=== PATIENT | female | born 1980 | race Hispanic/Latino ===

== ENCOUNTER 2017-12-20 05:00 | Observation (INO) | payer OTHER ==
[2017-12-20 05:42] LABS: Absolute Lymphocytes (CBC) 3.6 K/uL (0.7-4.9); Absolute Monocytes 0.9 K/uL (0.1-1.3); Absolute Neutrophil 6.9 K/uL (1.8-8.0); Basophils % 0.8 % (0-1.3); Eosinophils % 2.4 % (0-4.4); Hematocrit 36.3 % (36.0-45.0); Lymphocytes % 30.4 % (15.3-44.8); MCH 28.8 pg (27.0-35.0); MCV 87.5 fL (80-100); MPV 9.2 fL (7.6-11.3); Monocytes % 7.4 % (3.3-12.3); RBC Red Blood Cell Count 4.15 M/uL (3.86-4.86)
[2017-12-20 05:45] LABS: Protime INR 0.91
[2017-12-20] MEDS ORDERED: ONDANSETRON 4 MG/2 ML VIAL ONE ×3 (05:52→16:05)
[2017-12-20] MEDS ORDERED: NA CHLORIDE 0.9% 1,000 ML ONE (05:52)
[2017-12-20] MEDS ORDERED: MEPERIDINE HCL 50 MG/ML AMP ONE (05:52)
[2017-12-20 06:03] LABS: Albumin 3.9 g/dL (3.4-5.0); Bilirubin Direct 0.1 mg/dL (0-0.2); Bilirubin Total 0.4 mg/dL (0.2-1.0); CKMB Creatine Kinase MB 1.7 ng/mL (0.3-3.6); Magnesium 1.9 mg/dL (1.8-2.4); Potassium 3.4 mmol/L (3.5-5.1)
[2017-12-20] MEDS ORDERED: POTASSIUM CL SA 10 MEQ TAB PO ONE (06:33)
[2017-12-20] MEDS ORDERED: MORPHINE 4 MG/ML SYR ONE ×2 (06:52→08:08)
--- NOTE | 2017-12-20 07:23 | ER ---
Nurse's Notes [facility] Name: Venessa Almazan Age: 37 yrs Sex: Female : 1980 Arrival Date: 12/20/2017 Time: 05:00 Bed 6 Private MD: Diagnosis: Cholecystitis;Cholelithiasis;Abdominal tenderness Presentation: 12/20 05:15 Presenting complaint: Patient states: chest/epigastric pain since 9 pm last night, tl2 getting worse. Sharp, constant pain. Transition of care: patient was not received from another setting of care. Onset of symptoms was December 19, 2017 at 21:00. Risk Assessment: Do you want to hurt yourself or someone else? Patient reports no desire to harm self or others. Initial Sepsis Screen: Does the patient meet any 2 criteria? No. Patient's initial sepsis screen is negative. Does the patient have a suspected source of infection? No. Patient's initial sepsis screen is negative. Care prior to arrival: None. 05:15 Method Of Arrival: Ambulatory tl2 05:15 Acuity: ADAN 3 tl2 Triage Assessment: 05:17 General: Appears in no apparent distress. uncomfortable, Behavior is cooperative, tl2 appropriate for age, anxious, crying. Pain: Complains of pain in epigastric area Pain radiates to left upper quadrant Pain currently is 10 out of 10 on a pain scale. Quality of pain is described as sharp, Is continuous. Neuro: Level of Consciousness is awake, alert, obeys commands, Oriented to person, place, time, situation. Respiratory: Airway is patent Respiratory effort is even, unlabored, Respiratory pattern is regular, symmetrical. GI: Abdomen is non-distended, Reports upper abdominal pain. : No signs and/or symptoms were reported regarding the genitourinary system. Derm: Skin is pink, warm \T\ dry. 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 - Social history:: Smoking status: Patient/guardian denies using tobacco. - Ebola Screening: : No symptoms or risks identified at this time. Screenin:21 Abuse screen: Denies threats or abuse. Nutritional screening: No deficits noted. tl2 Tuberculosis screening: No symptoms or risk factors identified. Fall Risk None identified. Assessment: 05:21 General: see triage assessment. tl2 06:33 Reassessment: Patient and/or family updated on plan of care and expected duration. Pain ea level reassessed. Pain: Complains of pain in epigastric area Pain radiates to posterior aspect of right lateral abdomen and anterior aspect of right lateral abdomen Pain currently is 10 out of 10 on a pain scale. Pain began suddenly. Cardiovascular: Heart tones S1 S2 present Rhythm is sinus rhythm. Respiratory: Airway is patent Respiratory effort is even, unlabored, Respiratory pattern is regular, symmetrical. 06:51 Reassessment: Patient and/or family updated on plan of care and expected duration. Pain ea level reassessed. Pt complaining of pain, provider notified, order obtained, medication administered. Pt tolerated well. 07:10 Reassessment: Patient states feeling better. General: Appears comfortable, Behavior is aa5 calm, cooperative. Pain: Complains of pain in epigastric area and right upper quadrant Pain radiates to right mid-back Pain currently is 0 out of 10 on a pain scale. Quality of pain is described as sharp, Pain began last night. Neuro: Level of Consciousness is awake, alert, obeys commands, Oriented to person, place, time, situation. Cardiovascular: Heart tones S1 S2 present Rhythm is regular. Respiratory: Airway is patent Respiratory effort is even, unlabored, Respiratory pattern is regular, symmetrical, Breath sounds are clear bilaterally. GI: Abdomen is round non-distended, Bowel sounds present X 4 quads. Abd is soft X 4 quads Abdomen is tender to palpation in right upper quadrant Patient currently denies diarrhea, nausea, vomiting. : No signs and/or symptoms were reported regarding the genitourinary system. : No signs and/or symptoms were reported regarding the genitourinary system. EENT: No signs and/or symptoms were reported regarding the EENT system. Derm: Skin is pink, warm \T\ dry. Musculoskeletal: Range of motion: intact in all extremities. 08:01 Reassessment: Patient and/or family updated on plan of care and expected duration. Pain jl7 level reassessed. pt reports increased pain, provider notified see [facility] for orders. 09:00 Reassessment: Patient and/or family updated on plan of care and expected duration. Pain aa5 level reassessed. Patient is alert, oriented x 3, equal unlabored respirations, skin warm/dry/pink. Patient denies pain at this time. Awaiting on room assignment . Vital Signs: 05:17 BP 156 / 93; Pulse 104; Resp 22; Temp 98.7; Pulse Ox 100% on R/A; Weight 79.38 kg; tl2 Height 5 ft. 0 in. (152.40 cm); Pain 10/10; 07:41 BP 146 / 92; Pulse 71; Resp 14 S; Pulse Ox 97% on R/A; Pain 0/10; jl7 09:00 BP 120 / 92; Pulse 80; Resp 16 S; Temp 98.0(TE); Pulse Ox 98% on R/A; Pain 0/10; aa5 05:17 Body Mass Index 34.18 (79.38 kg, 152.40 cm) tl2 ED Course: 05:00 Patient arrived in ED. ds1 05:16 Triage completed. tl2 05:17 Kevin Stevens MD is Attending Physician. pkl 05:17 Arm band placed on right wrist. tl2 05:21 Patient has correct armband on for positive identification. Placed in gown. Bed in low tl2 position. Call light in reach. Side rails up X2. Adult w/ patient. switcher on. Pulse ox on. NIBP on. 05:21 Inserted saline lock: 20 gauge in right antecubital area, using aseptic technique. tl2 Blood collected. Patient maintains SpO2 saturation greater than 95% on room air. 05:35 X-ray completed. Portable x-ray completed in exam room. Patient tolerated procedure kp1 well. 05:47 Ann Valverde, RN is Primary Nurse. ea 06:16 XRAY Chest (1 view) In Process Unspecified. EDMS 07:21 Jaxson Elizabeth MD is Referral Physician. pkl 07:23 Ultrasound completed. Patient tolerated well. aa4 07:25 US Abdomen Limited In Process Unspecified. EDMS 07:39 Attending Physician role handed off by Kevin Stevens MD marlyn 07:39 Ang Denise MD is Attending Physician. marlyn 07:45 Jaxson Elizabeth MD is Hospitalizing Provider. marlyn 07:47 Attending Physician role handed off by Ang Denise MD gs 07:47 Ramu Atkins MD is Attending Physician. gs 07:47 Attending Physician role handed off by Ramu Atkins MD gs 07:47 Ang Denise MD is Attending Physician. gs 08:40 Primary Nurse role handed off by Ann Valverde RN jl7 08:40 Patience Cuadra RN is Primary Nurse. jl7 09:04 Dorys Petit RN is Primary Nurse. aa5 09:36 No provider procedures requiring assistance completed. Patient admitted, IV remains in aa5 place. Administered Medications: 05:56 Drug: NS 0.9% 1000 ml Route: IV; Rate: 125 ml/hr; Site: right antecubital; bb 09:05 Follow up: IV Status: Infusion continued aa5 05:56 Drug: Demerol 50 mg Route: IVP; Site: right antecubital; bb 06:30 Follow up: Response: No adverse reaction; Pain is decreased ea 05:57 Drug: Zofran 4 mg Route: IVP; Site: right antecubital; bb 06:30 Follow up: Response: No adverse reaction ea 06:31 Drug: K-Dur 20 mEq Route: PO; bb 06:42 Follow up: Response: No adverse reaction ea 06:51 Drug: morphine 4 mg Route: IVP; Site: right antecubital; ea 07:10 Follow up: Response: No adverse reaction; Pain is decreased aa5 08:00 Drug: Zosyn 3.375 grams Route: IVPB; Infused Over: 60 mins; Site: right antecubital; jl7 08:15 Follow up: Response: No adverse reaction aa5 09:02 Follow up: Response: No adverse reaction; IV Status: Completed infusion aa5 08:03 Drug: Zofran 4 mg Route: IVP; Site: right antecubital; jl7 08:15 Follow up: Response: No adverse reaction aa5 08:05 Drug: morphine 4 mg Route: IVP; Site: right antecubital; jl7 08:15 Follow up: Response: No adverse reaction aa5 Outcome: 07:22 Discharge ordered by . pkl 07:46 Decision to Hospitalize by Provider. marlyn 09:36 Admitted to Med/surg accompanied by tech, family with patient, via wheelchair, room aa5 204, with chart, Report called to KATHY Johnson 09:36 Condition: stable 09:36 Instructed on the need for admit, Demonstrated understanding of instructions. 09:37 Patient left the ED. aa5 Signatures: Dispatcher [employer] Ang Blanton MD MD cha Lam, Pin, MD MD pkl Alfredo, Sherry ds1 Ann Mancera RN RN Billie Hayes aa4 Dorys Petit RN RN aa5 Christine Duran RN RN tl2 Patience Cuadra RN RN jl7 Nohemi Brewster kp1 Ann Valverde RN RN Ramu Whitmore MD MD gs Corrections: (The following items were deleted from the chart) 09:38 09:00 BP 120 / 92; Pulse 80bpm; Resp 16bpm; Spontaneous; Pulse Ox 98% RA; aa5 aa5
--- NOTE | 2017-12-20 07:23 | EDPHYS ---
Physician Documentation [facility] Name: Venessa Almazan Age: 37 yrs Sex: Female : 1980 Arrival Date: 12/20/2017 Time: 05:00 Bed 6 Private MD: ED Physician Ang Denise HPI: 12/20 05:31 This 37 yrs old Female presents to ER via Ambulatory with complaints of Chest pkl Pain. 05:31 The patient presents with abdominal pain in the right upper quadrant. Onset: The pkl symptoms/episode began/occurred just prior to arrival, 8 hour(s) ago. The symptoms radiate to right back. 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 - Social history:: Smoking status: Patient/guardian denies using tobacco. - Ebola Screening: : No symptoms or risks identified at this time. ROS: 05:31 Eyes: Negative for injury, pain, redness, and discharge, ENT: Negative for injury, pkl pain, and discharge, Neck: Negative for injury, pain, and swelling, Cardiovascular: Negative for chest pain, palpitations, and edema, Respiratory: Negative for shortness of breath, cough, wheezing, and pleuritic chest pain. 05:31 Abdomen/GI: Positive for abdominal pain, of the right upper quadrant. 05:31 Back: Negative for acute changes. 05:31 : Negative for urinary symptoms. 05:31 MS/extremity: Negative for acute changes. 05:31 Skin: Negative for rash. 05:31 Neuro: Negative for altered mental status. Exam: 05:31 Head/Face: Normocephalic, atraumatic. Eyes: Pupils equal round and reactive to light, pkl extra-ocular motions intact. Lids and lashes normal. Conjunctiva and sclera are non-icteric and not injected. Cornea within normal limits. Periorbital areas with no swelling, redness, or edema. ENT: Nares patent. No nasal discharge, no septal abnormalities noted. Tympanic membranes are normal and external auditory canals are clear. Oropharynx with no redness, swelling, or masses, exudates, or evidence of obstruction, uvula midline. Mucous membranes moist. Neck: Trachea midline, no thyromegaly or masses palpated, and no cervical lymphadenopathy. Supple, full range of motion without nuchal rigidity, or vertebral point tenderness. No Meningismus. Chest/axilla: Normal chest wall appearance and motion. Nontender with no deformity. No lesions are appreciated. Cardiovascular: Regular rate and rhythm with a normal S1 and S2. No gallops, murmurs, or rubs. Normal PMI, no JVD. No pulse deficits. Respiratory: Lungs have equal breath sounds bilaterally, clear to auscultation and percussion. No rales, rhonchi or wheezes noted. No increased work of breathing, no retractions or nasal flaring. 05:31 Abdomen/GI: Bowel sounds: normal, Palpation: soft, mild abdominal tenderness, in the right upper quadrant. 05:31 Back: Exam negative for acute changes. 05:31 : Exam negative for acute changes. 05:31 Musculoskeletal/extremity: Exam is negative for acute changes. 05:31 Skin: Exam negative for rash. 05:31 Neuro: Orientation: is normal, Mentation: is normal, Cranial nerves: grossly normal, Motor: is normal. Vital Signs: 05:17 BP 156 / 93; Pulse 104; Resp 22; Temp 98.7; Pulse Ox 100% on R/A; Weight 79.38 kg; tl2 Height 5 ft. 0 in. (152.40 cm); Pain 10/10; 07:41 BP 146 / 92; Pulse 71; Resp 14 S; Pulse Ox 97% on R/A; Pain 0/10; jl7 09:00 BP 120 / 92; Pulse 80; Resp 16 S; Temp 98.0(TE); Pulse Ox 98% on R/A; Pain 0/10; aa5 05:17 Body Mass Index 34.18 (79.38 kg, 152.40 cm) tl2 MDM: 05:17 Patient medically screened. pkl 07:19 Data reviewed: vital signs, nurses notes, lab test result(s), radiologic studies, plain pkl films. ED course: Discussed lab. and US results with patient. Patient said she is feeling better. Does not want surgery at this time. Will follow up with Dr. Elizabeth as needed.. 12/20 05:23 Order name: Basic Metabolic Panel tl2 12/20 05:23 Order name: CBC with Diff tl2 12/20 05:23 Order name: Ckmb tl2 12/20 05:23 Order name: CPK tl2 12/20 05:23 Order name: LFT's tl2 12/20 05:23 Order name: Magnesium tl2 12/20 05:23 Order name: NT PRO-BNP tl2 12/20 05:23 Order name: PT-INR; Complete Time: 05:56 tl2 12/20 05:23 Order name: Ptt, Activated; Complete Time: 05:56 tl2 12/20 05:23 Order name: Troponin (emerg Dept Use Only); Complete Time: 06:10 tl2 12/20 05:24 Order name: Basic Metabolic Panel; Complete Time: 06:10 EDMS 12/20 05:24 Order name: CBC with Automated Diff; Complete Time: 05:56 EDMS 12/20 05:24 Order name: CKMB Creatine Kinase MB; Complete Time: 06:10 EDMS 12/20 05:24 Order name: Creatine Phosphokinase; Complete Time: 06:10 EDMS 12/20 05:23 Order name: XRAY Chest (1 view) tl2 12/20 05:24 Order name: Liver (Hepatic) Function; Complete Time: 06:10 EDMS 12/20 05:24 Order name: Magnesium; Complete Time: 06:10 EDMS 12/20 05:24 Order name: NT PRO-BNP; Complete Time: 06:10 EDMS 12/20 06:00 Order name: US Abdomen Limited pkl 12/20 07:54 Order name: Urine Dipstick--Ancillary (enter results) bd 12/20 07:54 Order name: Urine --Ancillary (enter results) bd 12/20 07:55 Order name: Basic Metabolic Panel EDMS 12/20 07:55 Order name: Basic Metabolic Panel EDMS 12/20 07:55 Order name: CBC with Automated Diff EDMS 12/20 07:55 Order name: CBC with Automated Diff EDMS 12/20 07:55 Order name: Lipase EDMS 12/20 07:55 Order name: Lipase EDMS 12/20 07:55 Order name: Liver (Hepatic) Function EDMS 12/20 07:55 Order name: Liver (Hepatic) Function EDMS 12/20 05:23 Order name: Urine Test (obtain specimen); Complete Time: 09:05 tl2 12/20 05:23 Order name: EKG; Complete Time: 05:24 tl2 12/20 05:23 Order name: Cardiac monitoring; Complete Time: 05:29 tl2 12/20 05:23 Order name: EKG - Nurse/Tech; Complete Time: 05:29 tl2 12/20 05:23 Order name: IV Saline Lock; Complete Time: 05: tl2 12/20 05:23 Order name: Labs collected and sent; Complete Time: 05: tl2 12/20 05:23 Order name: O2 Per Protocol; Complete Time: 05: tl2 12/20 05:23 Order name: O2 Sat Monitoring; Complete Time: 05: tl2 12/20 05:23 Order name: Urine Dipstick-Ancillary (obtain specimen); Complete Time: 09:02 tl2 12/20 07:54 Order name: NPO EDMS Administered Medications: 05:56 Drug: NS 0.9% 1000 ml Route: IV; Rate: 125 ml/hr; Site: right antecubital; bb 09:05 Follow up: IV Status: Infusion continued aa5 05:56 Drug: Demerol 50 mg Route: IVP; Site: right antecubital; bb 06:30 Follow up: Response: No adverse reaction; Pain is decreased ea 05:57 Drug: Zofran 4 mg Route: IVP; Site: right antecubital; bb 06:30 Follow up: Response: No adverse reaction ea 06:31 Drug: K-Dur 20 mEq Route: PO; bb 06:42 Follow up: Response: No adverse reaction ea 06:51 Drug: morphine 4 mg Route: IVP; Site: right antecubital; ea 07:10 Follow up: Response: No adverse reaction; Pain is decreased aa5 08:00 Drug: Zosyn 3.375 grams Route: IVPB; Infused Over: 60 mins; Site: right antecubital; jl7 08:15 Follow up: Response: No adverse reaction aa5 09:02 Follow up: Response: No adverse reaction; IV Status: Completed infusion aa5 08:03 Drug: Zofran 4 mg Route: IVP; Site: right antecubital; jl7 08:15 Follow up: Response: No adverse reaction aa5 08:05 Drug: morphine 4 mg Route: IVP; Site: right antecubital; jl7 08:15 Follow up: Response: No adverse reaction aa5 Disposition: 12/20/17 07:46 Hospitalization ordered by Jaxson Elizabeth for Observation. Preliminary diagnosis are Cholecystitis, Cholelithiasis, Abdominal tenderness. - Bed requested for Telemetry/MedSurg (observation). - Status is Observation. aa5 - Condition is Stable. - Problem is new. - Symptoms have improved. UTI on Admission? No Signatures: Dispatcher [employer] EDMS Shaneka Finney Corey, MD MD cha Lam, Pin, MD MD pkl Ann Mancera RN RN Dorys Desai RN RN aa5 Christine Duran RN RN tl2 Patience Cuadra RN RN jl7 Ann Valverde RN RN ea Corrections: (The following items were deleted from the chart) 07:43 07:22 12/20/2017 07:22 Discharged to Home. Impression: Acute cholecystitis. Condition marlyn is Stable. Forms are Medication Reconciliation Form, Thank You Letter, Antibiotic Education, Prescription Opioid Use. Follow up: Jaxson Elizabeth; When: 2 - 3 days; Reason: Re-evaluation by your physician. Problem is new. Symptoms have improved. pkl 09:08 07:46 Hospitalization Ordered by Jaxson Elizabeth MD for Observation. Preliminary bd diagnosis is Cholecystitis; Cholelithiasis; Abdominal tenderness. Bed requested for Telemetry/MedSurg (observation). Status is Observation. Condition is Stable. Problem is new. Symptoms have improved. UTI on Admission? No. marlyn 09:37 09:08 12/20/2017 07:46 Hospitalization Ordered by Jaxson Elizabeth MD for Observation. aa5 Preliminary diagnosis is Cholecystitis; Cholelithiasis; Abdominal tenderness. Bed requested for Telemetry/MedSurg (observation). Status is Observation. Condition is Stable. Problem is new. Symptoms have improved. UTI on Admission? No. bd
--- NOTE | 2017-12-20 07:41 | RAD REPORT ---
EXAM DESCRIPTION: US - Abdomen Exam Limited - 12/20/2017 7:25 am CLINICAL HISTORY: Abdominal pain COMPARISON: None. FINDINGS: Multiple gallstones along with dense sludge are seen layering in the dependent portion the gallbladder. Gallbladder wall is thickening with the gallbladder normal in size. Pericholecystic flu id is present. No common duct stone or biliary tree dilatation identified. IMPRESSION: Gallstones, wall thickening and pericholecystic fluid. Imaging findings are consistent w ith acute cholecystitis and need correlation with exam findings. No duct stone or biliary tree dilatation.
--- NOTE | 2017-12-20 07:44 | EKG ---
Test Date: 2017-12-20 Test Time: 05:12:36 Administrative Accountant: MEASUREMENT RESULTS: Intervals: Rate: 81 GA: 150 QRSD: 80 QT: 366 QTc: 425 [place]: P: 49 GA: 150 QRS: 36 T: 31 INTERPRETIVE STATEMENTS: Normal sinus rhythm Normal ECG Compared to ECG 01/25/2017 19:44:56 No significant changes Electronically Signed On 12-20-17 07:44:49 CDT by Lloyd Azar
[2017-12-20] MEDS ORDERED: MORPHINE 4 MG/ML SYR IV PRN (07:52)
[2017-12-20] MEDS ORDERED: ACETAMINOPHEN 500 MG TAB PO PRN (07:52)
[2017-12-20] MEDS ORDERED: ONDANSETRON 4 MG/2 ML VIAL IV PRN (07:52)
[2017-12-20] MEDS ORDERED: PIPER/TAZO/NS 3.375gm 3.375 GM/100 ML BAG ONE (07:57)
[2017-12-20] MEDS ORDERED: D5 0.45 NS 1,000 ML IV SCH (08:00)
--- NOTE | 2017-12-20 08:00 | RAD REPORT ---
EXAM DESCRIPTION: RAD - Chest Single View - 12/20/2017 6:16 am CLINICAL HISTORY: Chest pain, epigastric pain COMPARISON: April 2017 TECHNIQUE: AP portable chest image was obtained 0524 hours . FINDINGS: Lungs are clear. Heart and vasculature are normal. No measurable pleural effusion and no p neumothorax. No gross bony abnormality seen. No acute aortic findings suspected. IMPRESSION: No acute cardiopulmonary process. No significant interval change.
[2017-12-20 08:26] LABS: Urine Blood NEGATIVE (NEG); Urine Glucose NEGATIVE (NEG); Urine Protein NEGATIVE (NEG)
[2017-12-20] MEDS: FAMOTIDINE 20 MG/2 ML VIAL IV SCH ×2 (10:33→21:37)
[2017-12-20] MEDS: NS KCL 20MEQ 20 MEQ/1,000 ML BAG IV SCH ×2 (10:33→16:00)
[2017-12-20] MEDS: PIPER/TAZO/NS 3.375gm 3.375 GM/100 ML BAG IVPB SCH ×2 (10:46→17:01)
[2017-12-20 11:07] VITALS: BMI 34.2
[2017-12-20] MEDS ORDERED: PIPER/TAZO/NS 3.375gm 3.375 GM/100 ML BAG IVPB SCH (12:00)
--- NOTE | 2017-12-20 13:39 | P.HP ---
Date of Service: 12/20/17 PC: This 37-year-old female presents emergency room with severe right upper quadrant abdominal pain for diagnosis and treatment. HPC: Patient sudden onset of right upper quadrant abdominal pain, radiating into her back, shortly after she ate last night. Pain was unrelenting and was hard to get relief from it. She came to the emergency room were an ultrasound revealed she had acute on chronic cholecystitis with cholelithiasis. PMH: Asthma PSHx: Previous tubal ligation, appendectomy SOC: Allergic to 2 terbutaline SYS REVIEW: No cough, wheeze, shortness of breath. No chest pain or palpitations denies any urinary complaints. Otherwise healthy female good exercise tolerance O/E awake alert stable HEENT: Not jaundiced Chest: Clear ABD: Tender in the right upper quadrant more towards the midline LOCO: Intact DATA: Ultrasound shows acute on chronic cholecystitis with cholelithiasis IMPRESSION: Cholecystitis with cholelithiasis, biliary colic PLAN: I will take her to the operating room for laparoscopic cholecystectomy with intraoperative cholangiogram. The risks of this procedure have been discussed. The possibility of bleeding, infection, injury to bile ducts blood vessels and intestines has been described. The possible need for an open and/ or further surgeries and procedures was discussed. She understands and wants us to proceed.
[2017-12-20] MEDS ORDERED: Ringers Lactate 1,000 ML IV ONE (14:54)
[2017-12-20] MEDS ORDERED: SUCCINYLCHOLINE 20 MG/ML (10 ML) IV ONE (14:57)
[2017-12-20] MEDS ORDERED: PROPOFOL 200 MG/20 ML VIAL IV ONE (15:00)
[2017-12-20] MEDS ORDERED: MIDAZOLAM HCL 2 MG/2 ML INJ ONE (15:01)
[2017-12-20] MEDS ORDERED: FENTANYL CITR 100 MCG/2 ML ONE (15:01)
[2017-12-20] MEDS ORDERED: GLYCOPYRROLATE 0.2 MG/ML SYR ONE (15:48)
[2017-12-20] MEDS ORDERED: ROCURONIUM 50 MG/5 ML VIAL IV ONE (15:48)
[2017-12-20] MEDS ORDERED: ONDANSETRON HCL 40 MG/20 ML VIAL ONE (15:52)
--- NOTE | 2017-12-20 15:56 | P.OP ---
Preoperative diagnosis: Cholecystitis with cholelithiasis, biliary colic Postoperative diagnosis: The same Primary procedure: Laparoscopic cholecystectomy Secondary procedure: Intraoperative cholangiogram Other procedure(s): ADRIANNE block Anesthesia: General Estimated blood loss: Less than 10 cc Specimen: 1 gallbladder and cons Operative Technique: The patient was brought to the operating room placed supine on the table. After the induction of adequate general endotracheal anesthesia, the area of the abdomen is prepped with a DuraPrep solution, and draped in the usual aseptic manner. A subumbilical incision was made. This brought down through the skin and subcutaneous tissue. The Visiport was used to enter the peritoneal cavity and created pneumoperitoneum to approximately 12 mm of mercury. Under direct vision a 5 mm trocar was placed in the upper midline, and 2 other 5 mm trocars on the right lateral side. The patient's head was then elevated and rolled towards the crusher operator's side. We could see a distended inflamed gallbladder. It was necessary to aspirate the contents we could place a grasper on it. This was done 2 partially deflate the gallbladder. A grasper was then placed on the fundus of the gallbladder. Another 1 was placed down by Allen's pouch. Applying lateral traction we were able to dissect and expose the cystic duct and artery. The artery was dealt with 1st. It was clipped and divided in the usual manner. A clip was then placed between the gallbladder and the cystic duct. An opening was made into the cystic duct. We attempted then to pass the cholangiocath into the cystic duct. It passed into the duct, and was then wedged in place with a small balloon. After injecting contrast material, we could see there was good flow contrast into the duodenum with filling of the upper radicals. No filling defects were noted. The catheter was removed. Clips were now placed on the distal portion of the cystic duct. The cystic duct was then divided. The gallbladder was now dissected free from the liver bed, placed into an Endo-Catch, and brought out through the umbilical trocar site. The gallbladder fossa was inspected to ensure adequate hemostasis. It was irrigated with a saline solution and the irrigant aspirated from the peritoneal cavity. 0.25% Marcaine was aerosolized into the right upper quadrant and the gallbladder fossa. Attention was turned towards the anterior abdominal wall. We were able to do a ADRIANNE block with 0.25% Marcaine injected into this area. The umbilical trocar site was now approximated with an Endo Close and an absorbable sutures. The pneumoperitoneum was then collapsed, the suture tied, and shabnam applied to the skin. A further 0.25% Marcaine was injected around are incision sites. At the end of the procedure the patient was in a stable condition when sent to the recovery room. Needle sponge instrument count were correct. 1 specimen was sent for histopathology. Complications: None Transferred to: Recovery Room Condition: Good
[2017-12-20] MEDS ORDERED: KETOROLAC 30 MG/ML INJ ONE (16:05)
[2017-12-20] MEDS: MEPERIDINE HCL 50 MG/ML AMP ONE ×5 (16:06→16:32)
[2017-12-20] MEDS ORDERED: HYDROCODONE/APAP 7.5/325 MG TAB PO PRN (16:28)
[2017-12-20 16:40] VITALS: O2SAT 95
[2017-12-20] MEDS: MORPHINE 4 MG/ML SYR IV PRN ×2 (17:01→21:37)
--- NOTE | 2017-12-20 17:42 | RAD REPORT ---
EXAM DESCRIPTION: RAD - Cholangiogram Oper-Xray Or - 12/20/2017 4:11 pm FINDINGS: Fluoroscopic assisted intraoperative cholangiogram performed. For fluoroscopic images were submitted. Fluoro time was 0.1 minutes. Assessment is limited when only selected images are available. No suspicious or unexpected finding. C orrelation is needed with findings during real-time evaluation.
[2017-12-21] MEDS: PIPER/TAZO/NS 3.375gm 3.375 GM/100 ML BAG IVPB SCH ×2 (00:25→08:48)
[2017-12-21] MEDS: NS KCL 20MEQ 20 MEQ/1,000 ML BAG IV SCH ×2 (00:26→08:47)
[2017-12-21 05:12] LABS: Absolute Lymphocytes (CBC) 0.9 K/uL (0.7-4.9); Absolute Monocytes 0.7 K/uL (0.1-1.3); Absolute Neutrophil 5.7 K/uL (1.8-8.0); Basophils % 0.2 % (0-1.3); Eosinophils % 2.9 % (0-4.4); Hematocrit 30.5 % (36.0-45.0); Lymphocytes % 12.2 % (15.3-44.8); MCH 29.2 pg (27.0-35.0); MCV 87.2 fL (80-100); MPV 9.3 fL (7.6-11.3); Monocytes % 8.8 % (3.3-12.3)
[2017-12-21] MEDS: MORPHINE 4 MG/ML SYR IV PRN ×2 (05:39→13:02)
[2017-12-21 06:18] LABS: ALT/SGPT 203 U/L (12-78); AST/SGOT 254 U/L (15-37); Albumin 3.1 g/dL (3.4-5.0); Alkaline Phosphatase 120 U/L (45-117); BUN Blood Urea Nitrogen 12 mg/dL (7-18); Bicarbonate 26 mmol/L (21-32); Glucose Level 95 mg/dL (74-106); Lipase 117 U/L (73-393); Protein, Total 6.6 g/dL (6.4-8.2); Sodium Level 140 mmol/L (136-145)
[2017-12-21] MEDS: FAMOTIDINE 20 MG/2 ML VIAL IV SCH (08:48)
[2017-12-21 11:56] VITALS: BP 129/82; TEMP 98.2
--- NOTE | 2017-12-21 14:07 | P.DS ---
Admission Date: 12/20/17 Discharge Date: 12/21/17 Disposition: ROUTINE DISCHARGE Discharge Condition: GOOD Reason for Admission: Acute postoperative abdominal pain Procedures: Laparoscopic cholecystectomy with cholangiogram Brief History of Present Illness: This patient presented emergency room with severe right upper quadrant abdominal pain for diagnosis and treatment. Hospital Course: This found have acute cholecystitis with cholelithiasis and biliary colic.. She was admitted to the hospital kept NPO, given pain medicine, and started on antibiotics. She was then brought to the operating room were she underwent a laparoscopic cholecystectomy with intraoperative cholangiogram. She was admitted postoperatively for observation pain control. This morning she is up ambulating, tolerating a diet, and her pain is controlled on oral medication. She was deemed fit for discharge. She feels better, and her symptoms have resolved. Vital Signs/Physical Exam: Temp Pulse Resp BP Pulse Ox 98.2 F 100 H 16 129/82 95 12/21/17 11:54 12/21/17 11:54 12/21/17 11:54 12/21/17 11:54 12/21/17 11:54 Laboratory Data at Discharge: WBC 7.5 K/uL (4.3-10.9) D 12/21/17 04:32 Hgb 10.2 g/dL (12.0-15.0) L 12/21/17 04:32 Hct 30.5 % (36.0-45.0) L D 12/21/17 04:32 Plt Count 251 K/uL (152-406) D 12/21/17 04:32 PT 10.7 SECONDS (9.5-12.5) 12/20/17 05:20 INR 0.91 12/20/17 05:20 APTT 30.2 SECONDS (24.3-36.9) 12/20/17 05:20 Sodium 140 mmol/L (136-145) 12/21/17 04:32 Potassium 4.0 mmol/L (3.5-5.1) 12/21/17 04:32 BUN 12 mg/dL (7-18) 12/21/17 04:32 Creatinine 0.60 mg/dL (0.55-1.3) 12/21/17 04:32 Glucose 95 mg/dL (74-106) 12/21/17 04:32 Magnesium 1.9 mg/dL (1.8-2.4) 12/20/17 05:20 Total Bilirubin 2.0 mg/dL (0.2-1.0) H 12/21/17 04:32 AST 254 U/L (15-37) H D 12/21/17 04:32 ALT 203 U/L (12-78) H D 12/21/17 04:32 Alkaline Phosphatase 120 U/L (45-117) H 12/21/17 04:32 Lipase 117 U/L (73-393) 12/21/17 04:32 Home Medications: NK [No Home Meds] 12/20/17 Patient Discharge Instructions: Ambulated home, continue incentive spirometry, you may shower, change dressings as needed. See me on Thursday, call for appointment. A questions or problems, go to the emergency room, or contact me
== END 2017-12-21 15:12 | disposition home or self-care (01) ==
LOC: ER 05:00 → ERHOLD 07:50 → 2ND 09:32
PROVIDERS: ADMIT Surgery; ATTEND Surgery
PROC: BF00YZZ Plain Radiography of Bile Ducts using Other Contrast (ICD-10-PCS; 2017-12-20)
PROC: 0FT44ZZ Resection of Gallbladder, Percutaneous Endoscopic Approach (ICD-10-PCS; principal; 2017-12-20 15:00)
DX: K80.00 Calculus of gallbladder with acute cholecystitis without obstruction (principal); J45.909 Unspecified asthma, uncomplicated
CPT/HCPCS: 36415; 71045; 74300; 76705; 80048; 80076; 81003; 81025; 82550; 82553; 83690; 83735; 83880; 84484; 85025; 85610; 85730; 88304; 93005; 96361; 96365; 96375; 99285; J0330; J2175; J2250; J2405; J2543; J3010; J7030; Q9967

== ENCOUNTER 2018-01-18 16:24 | Emergency (ER) | payer OTHER ==
[2018-01-18] MEDS ORDERED: FENTANYL CITR 100 MCG/2 ML ONE (18:06)
[2018-01-18] MEDS ORDERED: KETOROLAC 30 MG/ML INJ ONE (18:06)
[2018-01-18] MEDS ORDERED: ONDANSETRON 4 MG/2 ML VIAL ONE (18:06)
[2018-01-18 18:08] LABS: Urine Culture Reflex Order NOT NEEDED
[2018-01-18 18:10] LABS: Urine Amorphous Sediment 2+ /HPF (NONE SEEN); Urine Bacteria 20-50 /HPF (<20); Urine RBC <5 /HPF (NONE SEEN)
[2018-01-18 18:11] LABS: Urine Blood NEGATIVE (NEG); Urine Glucose NEGATIVE (NEG); Urine Protein NEGATIVE (NEG); Urine Specific Gravity 1.025 (1.005-1.030)
[2018-01-18 18:18] LABS: Absolute Monocytes 0.8 K/uL (0.1-1.3); Absolute Neutrophil 4.1 K/uL (1.8-8.0); Basophils % 0.9 % (0-1.3); Eosinophils % 10.1 % (0-4.4); Hematocrit 35.1 % (36.0-45.0); Lymphocytes % 25.8 % (15.3-44.8); MCH 29.2 pg (27.0-35.0); MCV 88.3 fL (80-100); MPV 9.3 fL (7.6-11.3); Monocytes % 10.4 % (3.3-12.3); RBC Red Blood Cell Count 3.98 M/uL (3.86-4.86)
[2018-01-18 18:37] LABS: ALT/SGPT 19 U/L (12-78); AST/SGOT 11 U/L (15-37); Albumin 3.8 g/dL (3.4-5.0); Alkaline Phosphatase 124 U/L (45-117); BUN Blood Urea Nitrogen 16 mg/dL (7-18); Bicarbonate 22 mmol/L (21-32); Bilirubin Direct 0.1 mg/dL (0-0.2); Bilirubin Total 0.3 mg/dL (0.2-1.0); Glucose Level 89 mg/dL (74-106); Lipase 265 U/L (73-393); Potassium 4.1 mmol/L (3.5-5.1); Protein, Total 7.6 g/dL (6.4-8.2); Sodium Level 142 mmol/L (136-145)
--- NOTE | 2018-01-18 19:11 | RAD REPORT ---
EXAM DESCRIPTION: CTAbdomen Pelvis W Contrast - 01/18/2018 6:48 pm CLINICAL HISTORY: Abdominal pain. ABD PAIN COMPARISON: Abdomen Pelvis W Contrast dated 05/14/2016; Stone Protocol dated 10/21/2016 TECHNIQUE: Biphasic CT imaging of the abdomen and pelvis was performed with 100 ml non-ionic IV cont rast. All CT scans are performed using dose optimization technique as appropriate and may include automated exposure control or mA/KV adjustment according to patient size. FINDINGS: The lung bases are clear. The liver, spleen, pancreas, adrenal glands and kidneys are within normal limits. Cholecystectomy cli ps. No bowel obstruction, free air, free fluid or abscess. Small fat containing umbilical hernia. The nick endix is surgically absent. Postsurgical changes are present in the region of the cecum. Fecalization of the distal small bowel is seen in the region. No evidence of significant lymphadenopathy. No suspicious bony findings. A few small right ovarian follicle are noted IMPRESSION: Postsurgical changes are noted in the right lower quadrant with fecalization of the dist al small bowel noted, which could indicate fecal stasis. The appendix appears surgically absent.
--- NOTE | 2018-01-18 19:32 | ER ---
Nurse's Notes [facility] Name: Venessa Almazan Age: 37 yrs Sex: Female : 1980 Arrival Date: 01/18/2018 Time: 16:25 Bed 27 Private MD: None, None Diagnosis: Right side abdominal pain Presentation: 01/18 16:29 Presenting complaint: Patient states: RUQ pain that has started for couple days, had my sg gallbladder removed on december 20 here, pt reports pain on the suture site and deep within the abd as well, described as sharp stabbing, irritated by the fabric touching the area as well. Transition of care: patient was not received from another setting of care. Onset of symptoms was January 18, 2018. Risk Assessment: Do you want to hurt yourself or someone else? Patient reports no desire to harm self or others. Initial Sepsis Screen: Does the patient meet any 2 criteria? No. Patient's initial sepsis screen is negative. Care prior to arrival: None. 16:29 Method Of Arrival: Ambulatory sg 16:29 Acuity: ADAN 3 sg 17:31 Initial Sepsis Screen: Does the patient have a suspected source of infection? No. rv Patient's initial sepsis screen is negative. 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 - Social history:: Smoking status: Patient/guardian denies using tobacco. - Ebola Screening: : Patient negative for fever greater than or equal to 101.5 degrees Fahrenheit, and additional compatible Ebola Virus Disease symptoms Patient denies exposure to infectious person Patient denies travel to an Ebola-affected area in the 21 days before illness onset No symptoms or risks identified at this time. - Family history:: not pertinent. - Hospitalizations: : No recent hospitalization is reported. Screenin:31 Abuse screen: Denies threats or abuse. Denies injuries from another. Nutritional rv screening: No deficits noted. Tuberculosis screening: No symptoms or risk factors identified. Fall Risk None identified. Assessment: 17:29 General: Appears in no apparent distress. uncomfortable, Behavior is calm, cooperative. rv Pain: Complains of pain in abdomen. Neuro: Level of Consciousness is awake, alert, obeys commands, Oriented to person, place, time, situation. Cardiovascular: Capillary refill < 3 seconds. Respiratory: Airway is patent. GI: No signs and/or symptoms were reported involving the gastrointestinal system. : No signs and/or symptoms were reported regarding the genitourinary system. EENT: No signs and/or symptoms were reported regarding the EENT system. Derm: Skin is intact. 18:12 Reassessment: Patient appears in no apparent distress at this time. Patient and/or rv family updated on plan of care and expected duration. Pain level reassessed. Patient is alert, oriented x 3, equal unlabored respirations, skin warm/dry/pink. Vital Signs: 16:31 Pulse 90; Resp 17; Temp 97.6; Pulse Ox 100% on R/A; Weight 81.65 kg (R); Height 5 ft. 0 sg in. (152.40 cm); Pain 10/10; 16:31 BP 148 / 101; iw 17:33 BP 181 / 90; Pulse 86; Pulse Ox 99% on R/A; rv 17:49 BP 146 / 102; Pulse 78; Pulse Ox 98% on R/A; rv 19:55 BP 136 / 90; Pulse 78; Pulse Ox 98% on R/A; rv 16:31 Body Mass Index 35.15 (81.65 kg, 152.40 cm) ED Course: 16:25 Patient arrived in ED. sb2 16:25 None, None is Private Physician. sb2 16:30 Triage completed. sg 16:30 Arm band placed on. sg 17:22 Devon Sal MD is Attending Physician. wa 17:31 Patient has correct armband on for positive identification. Bed in low position. Call rv light in reach. Side rails up X 1. Pulse ox on. NIBP on. 17:35 Urine collected: clean catch specimen, clear, che colored, Amount Voided: 70mL. jp3 17:41 Urine Culture Sent. jp3 17:41 Urine Microscopic Only Sent. jp3 18:00 Inserted saline lock: 20 gauge in right forearm, using aseptic technique. Blood rv collected. 18:[address] nj 18:49 CT Abd/Pelvis - W/Contrast In Process Unspecified. EDMS 19:30 Jaxson Elizabeth MD is Referral Physician. ar 19:31 Devon Ford MD is Referral Physician. wa 19:56 No provider procedures requiring assistance completed. Patient admitted, IV remains in rv place. intact. Administered Medications: 18:11 Drug: TORadol 30 mg Route: IVP; Site: right forearm; rv 19:55 Follow up: Response: No adverse reaction rv 18:11 Drug: fentaNYL (PF) 50 mcg Route: IVP; Site: right forearm; rv 19:55 Follow up: Response: No adverse reaction rv 18:11 Drug: Zofran 4 mg Route: IVP; Site: right forearm; rv 19:55 Follow up: Response: No adverse reaction rv 19:54 Drug: Rocephin - (cefTRIAXone) 1 grams Route: IVPB; Infused Over: 30 mins; Site: right rv forearm; 19:55 Follow up: Response: Medication administered at discharge.; IV Status: Completed rv infusion Outcome: 19:31 Discharge ordered by . wa 19:57 Discharged to home ambulatory. rv 19:57 Condition: good 19:57 Discharge instructions given to patient, family, Instructed on discharge instructions, follow up and referral plans. medication usage, Demonstrated understanding of instructions, follow-up care, medications, Prescriptions given X 2. 19:57 Patient left the ED. rv Signatures: Dispatcher [employer] EDCA Michael Rosado, Shahida Dobson RN, RN RN iw Jordan, Nathan nj Appiah, William, MD MD wa Billeau, Sheri sb2 Mamadou Kim RN RN Nik Mendez jp3 Corrections: (The following items were deleted from the chart) 19:57 19:56 Admitted to Med/surg accompanied by tech, via stretcher, room 201, with chart, rv rv 19:57 19:56 Condition: stable rv rv 19:57 19:56 Instructed on the need for admit, rv rv
--- NOTE | 2018-01-18 19:32 | EDPHYS ---
Physician Documentation [facility] Name: Venessa Almazan Age: 37 yrs Sex: Female : 1980 Arrival Date: 01/18/2018 Time: 16:25 Bed 27 Private MD: None, None ED Physician Devon Sal HPI: 01/18 19:11 This 37 yrs old Female presents to ER via Ambulatory with complaints of SIDE wa PAIN. 19:11 The patient presents with abdominal pain right side mid abdomen. Onset: The wa symptoms/episode began/occurred 1 month(s) ago. The symptoms do not radiate. Associated signs and symptoms: Pertinent positives: nausea, Pertinent negatives: diarrhea, vomiting. The symptoms are described as sharp. Modifying factors: The symptoms are alleviated by nothing, the symptoms are aggravated by movement, walking. Severity of pain: At its worst the pain was moderate in the emergency department the pain is unchanged. The patient has not experienced similar symptoms in the past. The patient has been recently seen by a physician:. s/p cholecystectomy on 12/20/17. states has been having pains since then. now worsening. has to hold belly when walks. 19:[address] Barksdale. 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 - Social history:: Smoking status: Patient/guardian denies using tobacco. - Ebola Screening: : Patient negative for fever greater than or equal to 101.5 degrees Fahrenheit, and additional compatible Ebola Virus Disease symptoms Patient denies exposure to infectious person Patient denies travel to an Ebola-affected area in the 21 days before illness onset No symptoms or risks identified at this time. - Family history:: not pertinent. - Hospitalizations: : No recent hospitalization is reported. ROS: 19:14 Constitutional: Negative for fever, chills, and weight loss, Eyes: Negative for injury, wa pain, redness, and discharge, ENT: Negative for injury, pain, and discharge, Neck: Negative for injury, pain, and swelling, Cardiovascular: Negative for chest pain, palpitations, and edema, Respiratory: Negative for shortness of breath, cough, wheezing, and pleuritic chest pain, Back: Negative for injury and pain, : Negative for injury, bleeding, discharge, and swelling, MS/Extremity: Negative for injury and deformity, Skin: Negative for injury, rash, and discoloration, Neuro: Negative for headache, weakness, numbness, tingling, and seizure, Psych: Negative for depression, anxiety, suicide ideation, homicidal ideation, and hallucinations. 19:14 Abdomen/GI: Positive for abdominal pain, of the umbilical area and right upper quadrant, Negative for vomiting, diarrhea. Exam: 19:14 Constitutional: This is a well developed, well nourished patient who is awake, alert, wa and in no acute distress. Head/Face: Normocephalic, atraumatic. Eyes: Pupils equal round and reactive to light, extra-ocular motions intact. Lids and lashes normal. Conjunctiva and sclera are non-icteric and not injected. Cornea within normal limits. Periorbital areas with no swelling, redness, or edema. ENT: Nares patent. No nasal discharge, no septal abnormalities noted. Tympanic membranes are normal and external auditory canals are clear. Oropharynx with no redness, swelling, or masses, exudates, or evidence of obstruction, uvula midline. Mucous membranes moist. Neck: Trachea midline, no thyromegaly or masses palpated, and no cervical lymphadenopathy. Supple, full range of motion without nuchal rigidity, or vertebral point tenderness. No Meningismus. Chest/axilla: Normal chest wall appearance and motion. Nontender with no deformity. No lesions are appreciated. Cardiovascular: Regular rate and rhythm with a normal S1 and S2. No gallops, murmurs, or rubs. Normal PMI, no JVD. No pulse deficits. Respiratory: Lungs have equal breath sounds bilaterally, clear to auscultation and percussion. No rales, rhonchi or wheezes noted. No increased work of breathing, no retractions or nasal flaring. Back: No spinal tenderness. No costovertebral tenderness. Full range of motion. Skin: Warm, dry with normal turgor. Normal color with no rashes, no lesions, and no evidence of cellulitis. MS/ Extremity: Pulses equal, no cyanosis. Neurovascular intact. Full, normal range of motion. Neuro: Awake and alert, GCS 15, oriented to person, place, time, and situation. Cranial nerves II-XII grossly intact. Motor strength 5/5 in all extremities. Sensory grossly intact. Cerebellar exam normal. Normal gait. Psych: Awake, alert, with orientation to person, place and time. Behavior, mood, and affect are within normal limits. 19:14 Abdomen/GI: Inspection: abdomen appears normal, Bowel sounds: normal, in all quadrants, Palpation: soft, moderate abdominal tenderness, in the umbilical area and right upper quadrant. Vital Signs: 16:31 Pulse 90; Resp 17; Temp 97.6; Pulse Ox 100% on R/A; Weight 81.65 kg (R); Height 5 ft. 0 sg in. (152.40 cm); Pain 10/10; 16:31 BP 148 / 101; iw 17:33 BP 181 / 90; Pulse 86; Pulse Ox 99% on R/A; rv 17:49 BP 146 / 102; Pulse 78; Pulse Ox 98% on R/A; rv 19:55 BP 136 / 90; Pulse 78; Pulse Ox 98% on R/A; rv 16:31 Body Mass Index 35.15 (81.65 kg, 152.40 cm) MDM: 17:22 Patient medically screened. me 19:15 Differential diagnosis: abd pain post surgery: will up to include labs abd CT. r/o wa acute pathology. Data reviewed: vital signs, nurses notes. 19:27 Test interpretation: by ED physician or midlevel provider: labs noted for 5-10 wbcs in me UA. 19:28 Test interpretation: by ED physician or midlevel provider: CT and/pelvis: fecalization wa of distal small bowel. possible fecal stasis? . ED course: spoke with pt post CT findings. advises that she's able to eat however has diarrhea post meals. . 19:29 ED course: discussed findings with Dr. Lynn. advised close f/u with him at office. me will d/c with pain meds. will have f/u with GI as well. 01/18 16:41 Order name: Urine Culture snw 01/18 16:41 Order name: Urine Microscopic Only; Complete Time: 19:10 snw 01/18 17:48 Order name: Urine Dipstick--Ancillary (enter results); Complete Time: 19:10 bd 01/18 17:48 Order name: Urine --Ancillary (enter results); Complete Time: 19:11 01/18 17:49 Order name: Basic Metabolic Panel; Complete Time: 19:10 me 01/18 17:49 Order name: CBC with Diff; Complete Time: 19:11 me 01/18 17:49 Order name: Creatinine for Radiology; Complete Time: 19:11 me 01/18 17:49 Order name: Hepatic Function; Complete Time: 19:11 me 01/18 17:49 Order name: Lipase; Complete Time: 19:11 me 01/18 17:50 Order name: CT Abd/Pelvis - W/Contrast; Complete Time: 19:17 me 01/18 16:41 Order name: Urine Test (obtain specimen); Complete Time: 17:33 [facility] 01/18 16:41 Order name: Urine Dipstick-Ancillary (obtain specimen); Complete Time: 17:33 [facility] 01/18 17:49 Order name: IV Saline Lock; Complete Time: 18:11 me 01/18 17:49 Order name: Labs collected and sent; Complete Time: 18:10 me Administered Medications: 18:11 Drug: TORadol 30 mg Route: IVP; Site: right forearm; rv 19:55 Follow up: Response: No adverse reaction rv 18:11 Drug: fentaNYL (PF) 50 mcg Route: IVP; Site: right forearm; rv 19:55 Follow up: Response: No adverse reaction rv 18:11 Drug: Zofran 4 mg Route: IVP; Site: right forearm; rv 19:55 Follow up: Response: No adverse reaction rv 19:54 Drug: Rocephin - (cefTRIAXone) 1 grams Route: IVPB; Infused Over: 30 mins; Site: right rv forearm; 19:55 Follow up: Response: Medication administered at discharge.; IV Status: Completed rv infusion Disposition: 01/18/18 19:31 Discharged to Home. Impression: Right side abdominal pain. - Condition is Stable. - Discharge Instructions: Abdominal Pain, Adult, [id number]. - Prescriptions for Zofran 4 mg Oral Tablet - take 1 tablet by ORAL route every 12 hours As needed; 20 tablet. Tramadol 50 mg Oral Tablet - take 1 tablet by ORAL route every 8 hours as needed; 12 tablet. - Medication Reconciliation Form, Thank You Letter, Antibiotic Education, Prescription Opioid Use form. - Follow up: Jaxson Barksdale MD; When: 2 - 3 days; Reason: Recheck today's complaints. Follow up: Devon Ford MD; When: 2 - 3 days; Reason: Recheck today's complaints. - Problem is new. - Symptoms have improved. - Notes: follow up with both Dr. barksdale and Liliana for further evaluation of abdominal pain Signatures: Dispatcher [employer] EDMS Michael Rosado, RN RN sg Aidee Hammond, FORKLIFT MECHANIC-C FORKLIFT MECHANIC-Csnw Devon Sal MD MD wa Vicente, Ronaldo RN RN rv Corrections: (The following items were deleted from the chart) 19:57 19:31 01/18/2018 19:31 Discharged to Home. Impression: Right side abdominal pain. rv Condition is Stable. Forms are Medication Reconciliation Form, Thank You Letter, Antibiotic Education, Prescription Opioid Use. Follow up: Jaxson Barksdale; When: 2 - 3 days; Reason: Recheck today's complaints. Follow up: Devon Ford; When: 2 - 3 days; Reason: Recheck today's complaints. Problem is new. Symptoms have improved. wa
[2018-01-18] MEDS ORDERED: CEFTRIAXONE/SWI 1gm 1 GM/10 ML SYR ONE (19:43)
[2018-01-18 20:04] VITALS: TEMP 97.6
[2018-01-18 20:06] VITALS: O2SAT 98
[2018-01-18 20:07] VITALS: BP 136/90
== END 2018-01-18 19:57 | disposition home or self-care (01) ==
LOC: ER 16:24
DX: R10.9 Unspecified abdominal pain (principal); Z90.49 Acquired absence of other specified parts of digestive tract
CPT/HCPCS: 36415; 74177; 80048; 80076; 81003; 81015; 81025; 83690; 85025; 87086; 87088; 96374; 96375; 99284; J0696; J2405; J3010; Q9967

== ENCOUNTER 2018-06-12 11:16 | Emergency (ER) | payer OTHER ==
--- NOTE | 2018-06-12 12:16 | EDPHYS ---
Physician Documentation [facility] Name: Venessa Almazan Age: 37 yrs Sex: Female : 1980 Arrival Date: 06/12/2018 Time: 11:18 Bed 11 Private MD: ED Physician Elder Yates HPI: 06/12 11:51 This 37 yrs old Female presents to ER via Ambulatory with complaints of Chest rn Congestion. 11:51 The patient or guardian reports cough, flu symptoms. Onset: The symptoms/episode rn began/occurred 1 week(s) ago. Severity of symptoms: At their worst the symptoms were mild, in the emergency department the symptoms are unchanged. Modifying factors: The symptoms are alleviated by nothing, the symptoms are aggravated by nothing. The patient has not experienced similar symptoms in the past. The patient has not recently seen a physician. RN SURGERY: 11:31 LMP 06/04/2018 aj1 Historical: - Allergies: 11:31 NKA; aj1 - Home Meds: 11:31 None [Active]; aj1 - PMHx: 11:31 Depression; aj1 - PSHx: 11:31 Cholecystectomy; Appendectomy; aj1 - Immunization history:: Flu vaccine is not up to date. - Social history:: Smoking status: Patient/guardian denies using tobacco. - Ebola Screening: : Patient denies travel to an Ebola-affected area in the 21 days before illness onset. - Family history:: not pertinent. - Hospitalizations: : No recent hospitalization is reported. ROS: 11:51 Constitutional: Negative for fever, chills, and weight loss, Eyes: Negative for injury, rn pain, redness, and discharge, ENT: + sore throat and nasal congestion Neck: Negative for injury, pain, and swelling, Cardiovascular: Negative for chest pain, palpitations, and edema, Respiratory: + cough Abdomen/GI: Negative for abdominal pain, nausea, vomiting, diarrhea, and constipation, MS/Extremity: Negative for injury and deformity, Skin: Negative for injury, rash, and discoloration, Neuro: Negative for headache, weakness, numbness, tingling, and seizure. Exam: 11:51 Constitutional: This is a well developed, well nourished patient who is awake, alert, rn and in no acute distress. Walked to room without difficulty Head/Face: Normocephalic, atraumatic. Eyes: Pupils equal round and reactive to light, extra-ocular motions intact. Lids and lashes normal. Conjunctiva and sclera are non-icteric and not injected. Cornea within normal limits. Periorbital areas with no swelling, redness, or edema. ENT: mild pharyngeal erythema, no stridor, no exudate Neck: Non-tender cervical LAD Cardiovascular: Regular rate and rhythm with. No pulse deficits. Respiratory: Lungs have equal breath sounds bilaterally, clear to auscultation. No increased work of breathing, no retractions or nasal flaring. Skin: Warm, dry with normal turgor. Normal color with no rashes, no lesions, and no evidence of cellulitis. MS/ Extremity: Pulses equal, no cyanosis. Neurovascular intact. Full, normal range of motion. Equal circumference. Neuro: Awake and alert, GCS 15, oriented to person, place, time, and situation. Cranial nerves II-XII grossly intact. Motor strength 5/5 in all extremities. Sensory grossly intact. Cerebellar exam normal. Normal gait. Vital Signs: 11:31 BP 130 / 99; Pulse 98; Resp 20; Temp 98.9; Pulse Ox 100% on R/A; Weight 84.37 kg (R); aj1 Height 5 ft. 0 in. (152.40 cm) (R); Pain 7/10; 12:15 BP 114 / 86; Pulse 89; Resp 18; Pulse Ox 100% on R/A; aj1 11:31 Body Mass Index 36.33 (84.37 kg, 152.40 cm) aj1 MDM: 11:35 Patient medically screened. rn 12:14 Differential Diagnosis: Influenza Upper Respiratory Infection Sinusitis Pharyngitis rn Viral Syndrome. Data reviewed: vital signs, nurses notes, lab test result(s), and as a result, I will discharge patient. Counseling: I had a detailed discussion with the patient and/or guardian regarding: the historical points, exam findings, and any diagnostic results supporting the discharge/admit diagnosis, lab results, the need for outpatient follow up, to return to the emergency department if symptoms worsen or persist or if there are any questions or concerns that arise at home. Special discussion: I discussed with the patient/guardian in detail that at this point there is no indication for admission to the hospital. It is understood, however, that if the symptoms persist or worsen the patient needs to return immediately for re-evaluation. 06/12 11:34 Order name: Flu; Complete Time: 12:14 [facility] 06/12 11:34 Order name: Strep; Complete Time: 12:14 [facility] 06/12 12:05 Order name: Throat Culture EDMS Administered Medications: No medications were administered Disposition: 06/12/18 12:15 Discharged to Home. Impression: Cough. - Condition is Stable. - Discharge Instructions: Viral Respiratory Infection, Cough, Adult. - Medication Reconciliation Form, Thank You Letter, Antibiotic Education, Prescription Opioid Use form. - Follow up: Private Physician; When: As needed; Reason: Recheck today's complaints, Re-evaluation by your physician. - Problem is new. - Symptoms have improved. Signatures: Dispatcher [employer] EDHerlinda Klein RN RN aj1 Elder Yates MD MD rn Baxter, Heather, RN RN hb Corrections: (The following items were deleted from the chart) 12:35 12:15 06/12/2018 12:15 Discharged to Home. Impression: Cough. Condition is Stable. hb Forms are Medication Reconciliation Form, Thank You Letter, Antibiotic Education, Prescription Opioid Use. Follow up: Private Physician; When: As needed; Reason: Recheck today's complaints, Re-evaluation by your physician. Problem is new. Symptoms have improved. rn
--- NOTE | 2018-06-12 12:16 | ER ---
Nurse's Notes [facility] Name: Venessa Almazan Age: 37 yrs Sex: Female : 1980 Arrival Date: 06/12/2018 Time: 11:18 Bed 11 Private MD: Diagnosis: Cough Presentation: 06/12 11:29 Presenting complaint: Patient states: "I've been having a sore throat for the past week aj1 and this morning I woke up with a real bad cough and my ear hurts and my chest hurts when I cough and when I'm breathing." Denies shortness of breath. Transition of care: patient was not received from another setting of care. Onset of symptoms was June 05, 2018. Risk Assessment: Do you want to hurt yourself or someone else? Patient reports no desire to harm self or others. Initial Sepsis Screen: Does the patient meet any 2 criteria? HR > 90 bpm. No. Patient's initial sepsis screen is negative. Does the patient have a suspected source of infection? Yes: Productive cough/pneumonia. Care prior to arrival: None. 11:29 Method Of Arrival: Ambulatory aj1 11:29 Acuity: ADAN 4 aj1 Triage Assessment: 11:31 General: Appears in no apparent distress. uncomfortable, ill, Behavior is calm, aj1 cooperative, appropriate for age. Pain: Complains of pain in chest and generalized body aches Pain currently is 7 out of 10 on a pain scale. Aggravated by cough, deep breathing. Neuro: Level of Consciousness is awake, alert, obeys commands. Cardiovascular: Patient's skin is warm and dry. Respiratory: Reports cough that is productive, Airway is patent Respiratory effort is even, unlabored, Respiratory pattern is regular, symmetrical, Denies shortness of breath. 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 - Social history:: Smoking status: Patient/guardian denies using tobacco. - Ebola Screening: : Patient denies travel to an Ebola-affected area in the 21 days before illness onset. - Family history:: not pertinent. - Hospitalizations: : No recent hospitalization is reported. Screenin:31 Abuse screen: Denies threats or abuse. Denies injuries from another. Nutritional hb screening: No deficits noted. Tuberculosis screening: No symptoms or risk factors identified. Fall Risk None identified. Assessment: 12:15 Reassessment: Patient appears in no apparent distress at this time. Patient and/or hb family updated on plan of care and expected duration. Pain level reassessed. Patient is alert, oriented x 3, equal unlabored respirations, skin warm/dry/pink. Vital Signs: 11:31 BP 130 / 99; Pulse 98; Resp 20; Temp 98.9; Pulse Ox 100% on R/A; Weight 84.37 kg (R); aj1 Height 5 ft. 0 in. (152.40 cm) (R); Pain 7/10; 12:15 BP 114 / 86; Pulse 89; Resp 18; Pulse Ox 100% on R/A; aj1 11:31 Body Mass Index 36.33 (84.37 kg, 152.40 cm) aj1 ED Course: 11:18 Patient arrived in ED. tw3 11:31 Triage completed. aj1 11:31 Arm band placed on Patient placed in an exam room. aj1 11:35 Elder Yates MD is Attending Physician. rn 12:15 Patient has correct armband on for positive identification. Bed in low position. Call hb light in reach. Side rails up X 1. 12:32 No provider procedures requiring assistance completed. Patient did not have IV access hb during this emergency room visit. Administered Medications: No medications were administered Outcome: 12:15 Discharge ordered by . rn 12:34 Discharged to home ambulatory. hb 12:34 Condition: stable 12:34 Discharge instructions given to patient, Instructed on discharge instructions, follow up and referral plans. Demonstrated understanding of instructions, follow-up care. 12:35 Patient left the ED. hb Signatures: Herlinda Bruce RN RN aj Elder Yates MD MD rn Baxter, Heather, RN RN hb Wade, Theresa tw3
[2018-06-12 12:39] VITALS: BP 130/99; TEMP 98.9; O2SAT 100
== END 2018-06-12 12:35 | disposition home or self-care (01) ==
LOC: ER 11:16
DX: R05 Cough (principal)
CPT/HCPCS: 87070; 87081; 87804; 99281

== ENCOUNTER 2019-01-12 07:48 | Emergency (ER) | payer BC, OTHER ==
[2019-01-12] MEDS ORDERED: IBUPROFEN 400 MG TAB ONE (08:13)
[2019-01-12 08:56] LABS: Urine Blood TRACE (NEG); Urine Glucose NEGATIVE (NEG); Urine Protein 1+ (NEG)
[2019-01-12 09:04] LABS: Urine Bacteria NONE SEEN /HPF (<20); Urine RBC <5 /HPF (NONE SEEN)
[2019-01-12 09:05] LABS: Urine Culture Reflex Order NOT NEEDED; Urine Mucus HEAVY /HPF (NONE SEEN)
--- NOTE | 2019-01-12 09:09 | ER ---
Nurse's Notes [facility] Name: Venessa Almazan Age: 38 yrs Sex: Female : 1980 Arrival Date: 01/12/2019 Time: 07:50 Bed 20 Private MD: Diagnosis: Streptococcal tonsillitis Presentation: 01/12 08:00 Presenting complaint: Patient states: SORE THROAT, R EAR PAIN, MYALGIA AND CHILLS SINCE bp LAST PM. Transition of care: patient was not received from another setting of care. Onset of symptoms was January 11, 2019. Risk Assessment: Do you want to hurt yourself or someone else? Patient reports no desire to harm self or others. Initial Sepsis Screen: Does the patient meet any 2 criteria? HR > 90 bpm. No. Patient's initial sepsis screen is negative. Does the patient have a suspected source of infection? No. Patient's initial sepsis screen is negative. Care prior to arrival: None. 08:00 Method Of Arrival: Ambulatory bp 08:00 Acuity: ADAN 4 bp Triage Assessment: 08:02 General: Appears in no apparent distress. comfortable, ill, obese, Behavior is bp cooperative, appropriate for age, anxious. Pain: Complains of pain in right ear and neck. EENT: No deficits noted. Neuro: No deficits noted. Cardiovascular: No deficits noted. Respiratory: Reports cough that is. GI: No signs and/or symptoms were reported involving the gastrointestinal system. : No signs and/or symptoms were reported regarding the genitourinary system. Derm: No deficits noted. Musculoskeletal: No deficits noted. Historical: - Allergies: 08:02 NKA; bp - Home Meds: 08:02 None [Active]; bp - PMHx: 08:02 Depression; bp - Immunization history:: Adult Immunizations up to date. - Social history:: Smoking status: Patient/guardian denies using tobacco. - Ebola Screening: : No symptoms or risks identified at this time. Screenin:07 Abuse screen: Denies threats or abuse. Denies injuries from another. Nutritional bp screening: No deficits noted. Tuberculosis screening: No symptoms or risk factors identified. Fall Risk None identified. Assessment: 08:05 General: SEE TRIAGE NOTE. Respiratory: Airway is patent Respiratory effort is even, bp unlabored. EENT: Throat is reddened. Derm: No deficits noted. Musculoskeletal: No deficits noted. 09:47 Reassessment: PT D/C HOME AMBULATORY, DX WITH STREP THROAT. Respiratory: Breath sounds bp are clear bilaterally. Vital Signs: 08:02 BP 157 / 87; Pulse 110; Resp 20; Temp 98.8; Pulse Ox 100% ; Weight 83.91 kg; Height 5 bp ft. (152.40 cm); 08:55 BP 128 / 78; Pulse 96; Resp 17; Temp 99.3(O); Pulse Ox 100% on R/A; mh5 09:48 BP 141 / 87; Pulse 89; Resp 17; Temp 98; Pulse Ox 99% ; bp 08:02 Body Mass Index 36.13 (83.91 kg, 152.40 cm) bp ED Course: 07:50 Patient arrived in ED. as 07:51 Tyler Howell, RN is Primary Nurse. bp 07:52 Ang Avilez PA is PHCP. cp 07:52 Tanner Steel MD is Attending Physician. cp 08:01 Triage completed. bp 08:02 Arm band placed on. bp 08:07 Patient has correct armband on for positive identification. Bed in low position. Call bp light in reach. Side rails up X2. 08:19 Urine collected: clean catch specimen, clear, Flu and/or RSV swab sent to lab. Strep mh5 swab sent to lab. 09:48 No provider procedures requiring assistance completed. Patient did not have IV access bp during this emergency room visit. Administered Medications: 08:14 Drug: Ibuprofen 800 mg Route: PO; bp 09:47 Follow up: Response: No adverse reaction bp Outcome: 09:08 Discharge ordered by . cp 09:48 Discharged to home ambulatory, with family. bp 09:48 Condition: stable 09:48 Discharge instructions given to patient, Instructed on discharge instructions, follow up and referral plans. medication usage, Demonstrated understanding of instructions, follow-up care, medications, Prescriptions given X 2. 09:49 Patient left the ED. bp Signatures: Alexandria Herbert Corey, PA PA Kanwal V[facility] Tyler Howell, RN RN bp Corrections: (The following items were deleted from the chart) 08:58 08:55 BP 128 / 78; Pulse 96bpm; Resp 17bpm; Pulse Ox 100% RA; mh5 mh5
--- NOTE | 2019-01-12 09:09 | EDPHYS ---
Physician Documentation [facility] Name: Venessa Almazan Age: 38 yrs Sex: Female : 1980 Arrival Date: 01/12/2019 Time: 07:50 Bed 20 Private MD: ED Physician Tanner Steel HPI: 01/12 08:13 This 38 yrs old Female presents to ER via Ambulatory with complaints of Fever, cp Sore Throat, Abdominal Cramping. 08:14 The patient presents with sore throat. The patient describes throat pain as constant. cp Onset: The symptoms/episode began/occurred yesterday. Associated signs and symptoms: Pertinent positives: cough, earache, abdominal cramping. Historical: - Allergies: 08:02 NKA; bp - Home Meds: 08:02 None [Active]; bp - PMHx: 08:02 Depression; bp - Immunization history:: Adult Immunizations up to date. - Social history:: Smoking status: Patient/guardian denies using tobacco. - Ebola Screening: : No symptoms or risks identified at this time. ROS: 08:14 Constitutional: Positive for body aches, chills, Negative for fever, poor PO intake. cp 08:14 ENT: Positive for ear pain, sore throat, Negative for drainage from ear(s), difficulty swallowing, difficulty handling secretions. 08:14 Respiratory: Positive for cough, Negative for shortness of breath, wheezing. 08:14 Abdomen/GI: Positive for abdominal cramps, Negative for nausea, vomiting, diarrhea, constipation. 08:14 : Negative for urinary symptoms. 08:14 Skin: Negative for rash. 08:14 Neuro: Negative for altered mental status, headache, weakness. 08:14 All other systems are negative. Exam: 08:17 Head/Face: Normocephalic, atraumatic. cp 08:17 Constitutional: The patient appears in no acute distress, alert, awake, non-toxic, well developed, well nourished. 08:17 Eyes: Periorbital structures: appear normal, Conjunctiva: normal, no exudate, no injection, Sclera: no appreciated abnormality, Lids and lashes: appear normal, bilaterally. 08:17 ENT: External ear(s): are unremarkable, Ear canal(s): are normal, clear, TM's: bulging, is not appreciated, bilaterally, dullness, bilaterally, erythema, is not appreciated, bilaterally, Nose: is normal, Mouth: Lips: moist, Oral mucosa: moist, Posterior pharynx: Airway: no evidence of obstruction, patent, Tonsils: bilaterally enlarged, with erythema, Uvula: midline, erythema, that is mild. 08:17 Neck: ROM/movement: is normal, is supple, no meningismus, no nuchal rigidity, Lymph nodes: no appreciated lymphadenopathy. 08:17 Chest/axilla: Inspection: normal, Palpation: is normal, no crepitus, no tenderness. 08:17 Cardiovascular: Rate: tachycardic, Rhythm: regular. 08:17 Respiratory: the patient does not display signs of respiratory distress, Respirations: normal, no use of accessory muscles, no retractions, no splinting, no tachypnea, labored breathing, is not present, Breath sounds: are clear throughout, no decreased breath sounds, no stridor, no wheezing. 08:17 Abdomen/GI: Inspection: abdomen appears normal, Bowel sounds: active, all quadrants, Palpation: soft, in all quadrants, mild abdominal tenderness, in the right upper quadrant and right lower quadrant, rebound tenderness, is not appreciated, voluntary guarding, is not appreciated, involuntary guarding, is not appreciated. 08:17 Skin: no rash present. Vital Signs: 08:02 BP 157 / 87; Pulse 110; Resp 20; Temp 98.8; Pulse Ox 100% ; Weight 83.91 kg; Height 5 bp ft. (152.40 cm); 08:55 BP 128 / 78; Pulse 96; Resp 17; Temp 99.3(O); Pulse Ox 100% on R/A; mh5 09:48 BP 141 / 87; Pulse 89; Resp 17; Temp 98; Pulse Ox 99% ; bp 08:02 Body Mass Index 36.13 (83.91 kg, 152.40 cm) bp MDM: 07:57 Patient medically screened. cp 08:00 Differential diagnosis: mahnaz-burton virus, group A strep tonsillitis, courtney's angina, cp peritonsillar abscess pharyngitis, retropharyngeal abcess. 09:07 Data reviewed: vital signs, nurses notes, lab test result(s), and as a result, I will cp discharge patient. 09:07 Counseling: I had a detailed discussion with the patient and/or guardian regarding: the cp historical points, exam findings, and any diagnostic results supporting the discharge/admit diagnosis, lab results, to return to the emergency department if symptoms worsen or persist or if there are any questions or concerns that arise at home. 09:07 Response to treatment: the patient's symptoms have mildly improved after treatment, and cp as a result, I will discharge patient. 01/12 08:05 Order name: Influenza Screen (a \T\ B); Complete Time: 09:06 cp 01/12 08:05 Order name: Strep; Complete Time: 09:06 cp 01/12 09:06 Interpretation: Abnormal: GP A STREP SC \T\nbsp; GROUP A STREP SCREEN-- \T\nbsp; \T\nbsp; cp POSITIVE. 01/12 08:08 Order name: Urine Microscopic Only bp 01/12 08:09 Order name: Urine Dipstick--Ancillary (enter results); Complete Time: 09:06 eb 01/12 09:06 Interpretation: Normal except: UBLD TRACE; UPROT 1+. cp 01/12 08:09 Order name: Urine --Ancillary (enter results); Complete Time: 09:06 eb 01/12 08:05 Order name: Urine Test (obtain specimen); Complete Time: 08:09 cp 01/12 08:05 Order name: Urine Dipstick-Ancillary (obtain specimen); Complete Time: 08:09 cp Administered Medications: 08:14 Drug: Ibuprofen 800 mg Route: PO; bp 09:47 Follow up: Response: No adverse reaction bp Disposition: 10:00 Chart complete. cp Disposition: 01/12/19 09:08 Discharged to Home. Impression: Streptococcal tonsillitis. - Condition is Stable. - Discharge Instructions: Tonsillitis. - Prescriptions for Augmentin 875- 125 mg Oral Tablet - take 1 tablet by ORAL route every 12 hours for 10 days; 20 tablet. Ibuprofen 800 mg Oral Tablet - take 1 tablet by ORAL route every 8 hours As needed take with food; 30 tablet. - Medication Reconciliation Form, Thank You Letter, Antibiotic Education, Prescription Opioid Use form. - Follow up: Private Physician; When: 48 Hours; Reason: Worsening of condition. - Problem is new. - Symptoms have improved. Addendum: 01/17/2019 08:53 Co-signature as Attending Physician, Tanner Steel MD I agree with the assessment and k dr plan of care. Signatures: Dispatcher [employer] EDMS Tanner Steel MD MD [facility] Ang Avilez, ANAYELI PA cp Tyler Howell, RN RN bp Corrections: (The following items were deleted from the chart) 01/12 09:49 09:08 01/12/2019 09:08 Discharged to Home. Impression: Streptococcal tonsillitis. bp Condition is Stable. Forms are Medication Reconciliation Form, Thank You Letter, Antibiotic Education, Prescription Opioid Use. Follow up: Private Physician; When: 48 Hours; Reason: Worsening of condition. Problem is new. Symptoms have improved. cp
[2019-01-12 09:57] VITALS: BP 141/87; TEMP 98; O2SAT 99
== END 2019-01-12 09:49 | disposition home or self-care (01) ==
LOC: ER 07:48
DX: J02.0 Streptococcal pharyngitis (principal)
CPT/HCPCS: 81003; 81015; 81025; 87081; 87804; 99283

== ENCOUNTER 2019-03-17 19:19 | Emergency (ER) | payer BC ==
[2019-03-17] MEDS ORDERED: LEVALBUTEROL 1.25 MG/3 ML NEB ONE (19:50)
--- NOTE | 2019-03-17 20:10 | RAD REPORT ---
EXAM DESCRIPTION: RAD - Chest Single View - 03/17/2019 8:03 pm CLINICAL HISTORY: cough, chest pain Chest pain. COMPARISON: Chest Single View dated 12/20/2017; Chest Pa And Lat (2 Views) dated 05/01/2017 FINDINGS: Portable technique limits examination quality. The lungs are grossly clear. The heart is normal in size. No displaced fractures. IMPRESSION: No acute intrathoracic process suspected.
[2019-03-17 20:20] LABS: Absolute Lymphocytes (CBC) 1.2 K/uL (0.7-4.9); Basophils % 1.2 % (0-1.3); Hematocrit 33.9 % (36.0-45.0); Lymphocytes % 26.3 % (15.3-44.8); MPV 9.6 fL (7.6-11.3); RBC Red Blood Cell Count 3.99 M/uL (3.86-4.86)
[2019-03-17] MEDS ORDERED: dexAMETHasone 10 MG/ML VIAL ONE (20:20)
[2019-03-17 20:22] LABS: Protime INR 0.95
[2019-03-17] MEDS ORDERED: KETOROLAC 30 MG/ML INJ ONE (20:26)
[2019-03-17] MEDS ORDERED: MORPHINE 2 MG/ML SYR ONE (20:26)
[2019-03-17] MEDS ORDERED: ONDANSETRON 4 MG/2 ML VIAL ONE (20:26)
[2019-03-17] MEDS ORDERED: NA CHLORIDE 0.9% 1,000 ML ONE (20:27)
[2019-03-17 20:37] LABS: ALT/SGPT 23 U/L (12-78); AST/SGOT 20 U/L (15-37); Alkaline Phosphatase 117 U/L (45-117); BUN Blood Urea Nitrogen 17 mg/dL (7-18); Bicarbonate 24 mmol/L (21-32); Bilirubin Direct < 0.1 mg/dL (0-0.2); Bilirubin Total 0.2 mg/dL (0.2-1.0); Glucose Level 93 mg/dL (74-106); Magnesium 2.2 mg/dL (1.8-2.4); NT PRO-BNP 15 pg/mL (<125); Potassium 3.6 mmol/L (3.5-5.1); Protein, Total 7.8 g/dL (6.4-8.2); Sodium Level 142 mmol/L (136-145); Troponin (Emerg Dept Use Only) < 0.02 ng/mL (0.0-0.045)
--- NOTE | 2019-03-17 20:59 | EDPHYS ---
Physician Documentation [facility] Name: Venessa Almazan Age: 38 yrs Sex: Female : 1980 Arrival Date: 03/17/2019 Time: 19:22 Bed 8 Private MD: ED Physician Ang Denise HPI: 03/17 19:36 This 38 yrs old Female presents to ER via Ambulatory with complaints of Chest jmm Pain, Back Pain, Breathing Difficulty. 19:36 The patient or guardian reports cough. Onset: The symptoms/episode began/occurred jmm gradually, 1 week(s) ago. Modifying factors: The symptoms are alleviated by nothing. the symptoms are aggravated by nothing. Associated signs and symptoms: Pertinent positives: chest pain, Pertinent negatives: fever. This is a 38 year old female with a history of depression that presents to the ED with complaints of cough, chest pain beginning 1 week ago with increased chest pain. Patient denies fever. Patient also complains of sore throat and nasal congestion. . 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 - Social history:: Smoking status: Patient/guardian denies using tobacco. - Ebola Screening: : No symptoms or risks identified at this time. ROS: 19:36 Constitutional: Negative for fever, chills, and weight loss. jm 19:36 MS/Extremity: Negative for injury and deformity. 19:36 Cardiovascular: Positive for chest pain, with cough. 19:36 Respiratory: Positive for cough. 19:36 Abdomen/GI: Negative for abdominal pain, nausea and vomiting. 19:36 All other systems are negative. Exam: 19:36 Head/Face: atraumatic. Eyes: EOMI, no conjunctival erythema appreciated jmm 19:36 Neck: Trachea midline, Supple 19:36 Respiratory: Normal respirations, no respiratory distress appreciated Abdomen/GI: Non distended, soft Back: Normal ROM Skin: General appearance color normal MS/ Extremity: Moves all extremities, no obvious deformities appreciated, no edema noted to the lower extremities Neuro: Awake and alert, normal gait Psych: Behavior is normal, Mood is normal, Patient is cooperative and pleasant 19:36 Constitutional: The patient appears alert, awake, anxious, uncomfortable. 19:36 ENT: Posterior pharynx: erythema, that is mild. 19:36 Chest/axilla: Inspection: normal, Palpation: tenderness, that is moderate, that partially reproduces the patient's complaints. 19:36 Cardiovascular: Rate: normal, Rhythm: regular. Vital Signs: 19:35 BP 172 / 98; Pulse 87; Resp 20; Temp 97.6; Pulse Ox 99% on R/A; Weight 81.65 kg (R); ak1 Height 5 ft. 0 in. (152.40 cm) (R); Pain 8/10; 20:30 BP 132 / 113; Pulse 92; Resp 17; Pulse Ox 99% ; Pain 8/10; rr5 21:10 BP 137 / 82; Pulse 90; Resp 17; Temp 98.5; Pulse Ox 99% ; Pain 6/10; rr5 19:35 Body Mass Index 35.15 (81.65 kg, 152.40 cm) ak1 MDM: 19:44 Patient medically screened. [facility] 20:52 Data reviewed: vital signs, nurses notes. Counseling: I had a detailed discussion with dharmesh the patient and/or guardian regarding: the historical points, exam findings, and any diagnostic results supporting the discharge/admit diagnosis, lab results, radiology results, the need for outpatient follow up, to return to the emergency department if symptoms worsen or persist or if there are any questions or concerns that arise at home. ED course: Patient is alert and non toxic in appearance in the ED. Pain is relieved in the ED. Patient advised to follow up with pcp and otherwise given strict return precautions. patient understood and agrees with the plan of care. . 03/17 19:41 Order name: Urine Dipstick--Ancillary (enter results); Complete Time: 21:14 [facility] 03/17 19:41 Order name: Urine --Ancillary (enter results); Complete Time: 21:14 [facility] 03/17 19:44 Order name: Basic Metabolic Panel [facility] 03/17 19:44 Order name: CBC with Diff [facility] 03/17 19:44 Order name: LFT's [facility] 03/17 19:44 Order name: Magnesium; Complete Time: 20:52 [facility] 03/17 19:44 Order name: NT PRO-BNP; Complete Time: 20:52 [facility] 03/17 19:44 Order name: PT-INR; Complete Time: 20:52 [facility] 03/17 19:44 Order name: Troponin (emerg Dept Use Only); Complete Time: 20:52 [facility] 03/17 19:45 Order name: Basic Metabolic Panel; Complete Time: 20:52 [facility] 03/17 19:45 Order name: CBC with Automated Diff; Complete Time: 20:52 [facility] 03/17 19:45 Order name: Liver (Hepatic) Function; Complete Time: 20:52 [facility] 03/17 19:45 Order name: Flu; Complete Time: 20:52 [facility] 03/17 19:45 Order name: Strep; Complete Time: 20:52 [facility] 03/17 19:44 Order name: XRAY Chest (1 view); Complete Time: 20:14 [facility] 03/17 19:44 Order name: EKG; Complete Time: 19:45 [facility] 03/17 19:44 Order name: Cardiac monitoring; Complete Time: 19:45 [facility] 03/17 19:44 Order name: EKG - Nurse/Tech; Complete Time: 19:45 [facility] 03/17 19:44 Order name: IV Saline Lock; Complete Time: 19:45 [facility] 03/17 19:44 Order name: Labs collected and sent; Complete Time: 20:00 [facility] 03/17 19:44 Order name: O2 Per Protocol; Complete Time: 19:45 [facility] 03/17 19:44 Order name: O2 Sat Monitoring; Complete Time: 19:46 jm Administered Medications: 19:57 Drug: Xopenex (3) 1.25 mg Route: Inhalation; ao 21:00 Follow up: Response: No adverse reaction rr5 20:20 Drug: Decadron - Dexamethasone 10 mg Route: IVP; Site: right forearm; rr5 21:00 Follow up: Response: No adverse reaction rr5 20:30 Drug: Zofran 4 mg Route: IVP; Site: right forearm; rr5 21:12 Follow up: Response: No adverse reaction rr5 20:30 Drug: NS 0.9% 1000 ml Route: IV; Rate: 1 bolus; Site: right forearm; rr5 21:11 Follow up: Response: No adverse reaction; IV Status: Order to discontinue infusion; IV rr5 Intake: 700ml 20:32 Drug: Ketorolac 30 mg Route: IVP; Site: right forearm; rr5 21:12 Follow up: Response: No adverse reaction; Pain is decreased rr5 20:34 Drug: morphine 2 mg {Note: rass 0.} Route: IVP; Site: right forearm; rr5 21:12 Follow up: Response: Pain is decreased; RASS: Alert and Calm (0) rr5 Disposition: 03/18 13:53 Co-signature as Attending Physician, Ang Denise MD I agree with the assessment and marlyn plan of care. Disposition: 03/17/19 20:58 Discharged to Home. Impression: Streptococcal pharyngitis, Acute bronchitis. - Condition is Stable. - Discharge Instructions: Acute Bronchitis, Adult, Pharyngitis, Strep Throat. - Prescriptions for Augmentin 875- 125 mg Oral Tablet - take 1 tablet by ORAL route every 12 hours for 10 days; 20 tablet. - Medication Reconciliation Form, Thank You Letter, Antibiotic Education, Prescription Opioid Use, Work release form form. - Follow up: Private Physician; When: 2 - 3 days; Reason: Recheck today's complaints, Continuance of care, Re-evaluation by your physician. Signatures: Dispatcher [employer] Ang Blanton MD MD cha Mickail, Joel, PA PA jmm Krenek, Amber RN RN ak1 Malcom Apodaca RN Jose David Davila RN RN rr5 Corrections: (The following items were deleted from the chart) 03/17 21:13 20:58 03/17/2019 20:58 Discharged to Home. Impression: Streptococcal pharyngitis; Acute rr5 bronchitis. Condition is Stable. Forms are Medication Reconciliation Form, Thank You Letter, Antibiotic Education, Prescription Opioid Use. Follow up: Private Physician; When: 2 - 3 days; Reason: Recheck today's complaints, Continuance of care, Re-evaluation by your physician. dharmesh
--- NOTE | 2019-03-17 20:59 | ER ---
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 pt c/o SOB and states she can not catch her breath. Transition of care: patient was not received from another setting of care. Onset of symptoms is unknown. Risk Assessment: Do you want to hurt yourself or someone else? Patient reports no desire to harm self or others. Initial Sepsis Screen: Does the patient meet any 2 criteria? No. Patient's initial sepsis screen is negative. Does the patient have a suspected source of infection? No. Patient's initial sepsis screen is negative. Care prior to arrival: None. 19:36 Method Of Arrival: Ambulatory ak1 19:36 Acuity: ADAN 3 ak1 Triage Assessment: 19:40 General: Appears in no apparent distress. Behavior is calm, cooperative. Pain: ak1 Complains of pain in chest. 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 - Social history:: Smoking status: Patient/guardian denies using tobacco. - Ebola Screening: : No symptoms or risks identified at this time. Screenin:40 Abuse screen: Denies threats or abuse. Denies injuries from another. Nutritional ao screening: No deficits noted. Tuberculosis screening: No symptoms or risk factors identified. Fall Risk None identified. Assessment: 19:38 General: Appears in no apparent distress. uncomfortable, well groomed, well developed, ao well nourished, Behavior is calm, cooperative, appropriate for age, agitated, anxious. Pain: Complains of pain in chest Pain does not radiate. Pain began 3 weeks ago. Neuro: Level of Consciousness is awake, alert, obeys commands, Oriented to person, place, time, situation, Appropriate for age Moves all extremities. Full function Speech is normal, Facial symmetry appears normal. Cardiovascular: Reports chest pain, shortness of breath, Heart tones S1 S2 Capillary refill < 3 seconds Patient's skin is warm and dry. Respiratory: Airway is patent Respiratory effort is even, unlabored, Respiratory pattern is regular, symmetrical. GI: Abdomen is non-distended. : No signs and/or symptoms were reported regarding the genitourinary system. EENT: No signs and/or symptoms were reported regarding the EENT system. Derm: Skin is intact, Skin is Skin temperature is warm. 20:30 Reassessment: patient complaint of chest pain pain score 8/10. ED provider aware with rr5 order made and carried out. 21:11 Reassessment: Patient appears in no apparent distress at this time. Patient is alert, rr5 oriented x 3, equal unlabored respirations, skin warm/dry/pink. discharge instruction given and explained without complaints made, verbalized understanding. Patient states feeling better. Patient states symptoms have improved. Vital Signs: 19:35 BP 172 / 98; Pulse 87; Resp 20; Temp 97.6; Pulse Ox 99% on R/A; Weight 81.65 kg (R); ak1 Height 5 ft. 0 in. (152.40 cm) (R); Pain 8/10; 20:30 BP 132 / 113; Pulse 92; Resp 17; Pulse Ox 99% ; Pain 8/10; rr5 21:10 BP 137 / 82; Pulse 90; Resp 17; Temp 98.5; Pulse Ox 99% ; Pain 6/10; rr5 19:35 Body Mass Index 35.15 (81.65 kg, 152.40 cm) ak1 ED Course: 19:22 Patient arrived in ED. cf2 19:28 Malcom Apodaca, KATHY is Primary Nurse. ao 19:34 Kulwinder Grove PA is PHCP. jmm 19:34 Ang Denise MD is Attending Physician. jmm 19:35 Arm band placed on Patient placed in an exam room, on a stretcher, on pulse oximetry, ak1 Patient notified of wait time. 19:37 Triage completed. ak1 19:40 Patient maintains SpO2 saturation greater than 95% on room air. ak1 19:41 Patient has correct armband on for positive identification. 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 Pulse ao ox on. NIBP on. 19:41 EKG done, by ED staff, reviewed by Ang Denise MD By KATHY Main. Inserted saline ao lock: 22 gauge in right forearm, using aseptic technique. Blood collected. 20:01 XRAY Chest (1 view) In Process Unspecified. EDMS 20:01 CBC with Diff Sent. ao 20:01 LFT's Sent. ao 20:01 Basic Metabolic Panel Sent. ao 21:13 No provider procedures requiring assistance completed. IV discontinued, intact, rr5 bleeding controlled, No redness/swelling at site. Pressure dressing applied. Administered Medications: 19:57 Drug: Xopenex (3) 1.25 mg Route: Inhalation; ao 21:00 Follow up: Response: No adverse reaction rr5 20:20 Drug: Decadron - Dexamethasone 10 mg Route: IVP; Site: right forearm; rr5 21:00 Follow up: Response: No adverse reaction rr5 20:30 Drug: Zofran 4 mg Route: IVP; Site: right forearm; rr5 21:12 Follow up: Response: No adverse reaction rr5 20:30 Drug: NS 0.9% 1000 ml Route: IV; Rate: 1 bolus; Site: right forearm; rr5 21:11 Follow up: Response: No adverse reaction; IV Status: Order to discontinue infusion; IV rr5 Intake: 700ml 20:32 Drug: Ketorolac 30 mg Route: IVP; Site: right forearm; rr5 21:12 Follow up: Response: No adverse reaction; Pain is decreased rr5 20:34 Drug: morphine 2 mg {Note: rass 0.} Route: IVP; Site: right forearm; rr5 21:12 Follow up: Response: Pain is decreased; RASS: Alert and Calm (0) rr5 Intake: 21:11 IV: 700ml; Total: 700ml. rr5 Outcome: 20:58 Discharge ordered by . dharmesh 21:13 Discharged to home ambulatory. rr5 21:13 Condition: stable 21:13 Discharge instructions given to patient, Instructed on discharge instructions, follow up and referral plans. medication usage, Demonstrated understanding of instructions, follow-up care, medications, Prescriptions given X 1. 21:13 Patient left the ED. rr5 Signatures: Dispatcher [employer] Kulwinder Arrington PA PA jmm Krenek, Amber, RN RN ak1 Malcom Apodaca RN RN Jose David Gamez RN RN rr5 Neva Wu 2
[2019-03-17 21:00] LABS: Urine Blood NEGATIVE (NEG); Urine Glucose NEGATIVE (NEG); Urine Protein NEGATIVE (NEG); Urine Specific Gravity >1.030 (1.005-1.030); Urine pH 5.5 (5.0-7.0)
[2019-03-17 21:18] VITALS: O2SAT 99
[2019-03-17 21:21] VITALS: BP 137/82; TEMP 98.5
--- NOTE | 2019-03-18 07:55 | EKG ---
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
== END 2019-03-17 21:13 | disposition home or self-care (01) ==
LOC: ER 19:19
DX: J02.0 Streptococcal pharyngitis (principal); J20.9 Acute bronchitis, unspecified
CPT/HCPCS: 96361; 93005; 85025; 80048; 36415; 83735; 81025; 85610; 80076; 87081; 81003; 84484; 83880; 87804 ×2; 71045; 96375; 96374; 99285; J1100; J2270; J7030; J2405

== ENCOUNTER 2019-04-30 10:35 | Emergency (ER) | payer BC ==
[2019-04-30] MEDS ORDERED: MORPHINE 4 MG/ML SYR ONE (11:32)
[2019-04-30] MEDS ORDERED: ONDANSETRON 4 MG/2 ML VIAL ONE (11:32)
[2019-04-30 11:44] LABS: Absolute Lymphocytes (CBC) 1.7 K/uL (0.7-4.9); Basophils % 1.1 % (0-1.3); Hematocrit 35.5 % (36.0-45.0); Lymphocytes % 26.2 % (15.3-44.8); MPV 9.1 fL (7.6-11.3); RBC Red Blood Cell Count 4.21 M/uL (3.86-4.86)
[2019-04-30 11:53] LABS: ALT/SGPT 26 U/L (12-78); AST/SGOT 12 U/L (15-37); Albumin 3.7 g/dL (3.4-5.0); Alkaline Phosphatase 93 U/L (45-117); BUN Blood Urea Nitrogen 16 mg/dL (7-18); Bicarbonate 26 mmol/L (21-32); Bilirubin Direct 0.1 mg/dL (0-0.2); Bilirubin Total 0.6 mg/dL (0.2-1.0); Glucose Level 98 mg/dL (74-106); Lipase 145 U/L (73-393); Protein, Total 7.6 g/dL (6.4-8.2); Sodium Level 141 mmol/L (136-145)
--- NOTE | 2019-04-30 13:10 | RAD REPORT ---
EXAM DESCRIPTION: CT - Stone Protocol - 04/30/2019 12:42 pm CLINICAL HISTORY: Abdominal pain, back pain and flank pain, history of hematuria COMPARISON: CT January 2018 TECHNIQUE: Axial 5 mm thick images were obtained without oral or IV contrast. The [id number] span s the entirety of the system including uppermost abdomen and lung bases. All CT scans are performed using dose optimization technique as appropriate and may include automated exposure control or mA/KV adjustment according to patient size. FINDINGS: No hydronephrosis is present and no obstructing ureteral calculi. No suspicious renal mass es. Isodense masses and pyelonephritis are not excluded on a stone protocol CT scan. No urinary bladd er suspicious finding. No significant adrenal finding. Uterus is prominent with a lobulated contour. This is similar to comparison. Detail is limited but no gross change seen. Ovaries are not clearly de fined being isodense to adjacent on opacified bowel. Ovarian abnormality is not suspected. Imaged portions of the liver, spleen and pancreas show no suspicious findings on non-contrast imaging . Cholecystectomy clips present with no biliary tree dilatation. No suspicious bowel findings. Appendectomy clips are present. Small fat only umbilical hernia is present. No mass, bulky lymphadenopathy or omental thickening. Num erous phleboliths seen along the pelvic floor. No free air, free fluid or inflammatory stranding. No significant bony abnormality. IMPRESSION: Noncontrast CT abdomen and pelvis imaging shows no acute or suspicious finding. No significant change evident compared to January 2018. Isodense masses and pyelonephritis are not excluded on stone protocol technique.
--- NOTE | 2019-04-30 13:33 | ER ---
Nurse's Notes [facility] Name: Venessa Almazan Age: 38 yrs Sex: Female : 1980 Arrival Date: 04/30/2019 Time: 10:36 Bed 2 Private MD: Diagnosis: Low back pain Presentation: 04/30 10:49 Presenting complaint: Patient states: Right lower back pain since Thursday with hematuria sr5 and headache. Transition of care: patient was not received from another setting of care. 10:49 Method Of Arrival: Ambulatory sr5 10:49 Acuity: ADAN 3 sr5 11:20 Onset of symptoms was April 30, 2019 at 19:14. Risk Assessment: Do you want to hurt sv yourself or someone else? Patient reports no desire to harm self or others. Initial Sepsis Screen: Does the patient meet any 2 criteria? No. Patient's initial sepsis screen is negative. Does the patient have a suspected source of infection? No. Patient's initial sepsis screen is negative. Care prior to arrival: None. Triage Assessment: 10:51 General: Appears uncomfortable, Behavior is calm, cooperative. Pain: Complains of pain sr5 in anterior aspect of right lateral abdomen and right upper quadrant Pain currently is 10 out of 10 on a pain scale. Neuro: No deficits noted. Cardiovascular: No deficits noted. Respiratory: No deficits noted. : Reports vaginal bleeding that is. 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 - Ebola Screening: : Patient negative for fever greater than or equal to 101.5 degrees Fahrenheit, and additional compatible Ebola Virus Disease symptoms. Screenin:25 Abuse screen: Denies threats or abuse. Denies injuries from another. Nutritional sg screening: No deficits noted. Tuberculosis screening: No symptoms or risk factors identified. Never had TB. Fall Risk None identified. Assessment: 11:20 General: Appears in no apparent distress. uncomfortable, well groomed, well developed, sv Behavior is calm, cooperative, appropriate for age. Pain: Complains of pain in left low back and right low back Pain currently is 10 out of 10 on a pain scale. Neuro: Level of Consciousness is awake, alert, obeys commands, Oriented to person, place, time, situation, Moves all extremities. Full function Gait is steady. Respiratory: Respiratory effort is even, unlabored, Respiratory pattern is regular, symmetrical. : Denies inability to void, pain. Derm: Skin is pink, warm \T\ dry. Musculoskeletal: Range of motion: intact in all extremities. 12:30 Reassessment: Patient appears in no apparent distress at this time. Patient and/or sg family updated on plan of care and expected duration. Pain level reassessed. Patient is alert, oriented x 3, equal unlabored respirations, skin warm/dry/pink. pt family remains at bedside, no new orders received at this time. Vital Signs: 10:51 BP 146 / 101; Pulse 67; Resp 18; Temp 97.5; Pulse Ox 100% ; Weight 81.65 kg; Height 5 sr5 ft. 0 in. (152.40 cm); Pain 10/10; 11:32 BP 148 / 94; Pulse 77; Resp 16; Pulse Ox 100% ; sv 12:30 BP 121 / 80; Pulse 65; Resp 16; Pulse Ox 97% ; sv 10:51 Body Mass Index 35.15 (81.65 kg, 152.40 cm) sr5 ED Course: 10:36 Patient arrived in ED. as 10:51 Triage completed. sr5 10:51 Arm band placed on. sr5 11:01 Michael Rosado RN is Primary Nurse. sg 11:02 Luis Emery FNP-C is PHCP. la1 11:02 Ang Denise MD is Attending Physician. la1 11:20 Patient has correct armband on for positive identification. Bed in low position. Call sv light in reach. Pulse ox on. NIBP on. Door closed. Warm blanket given. Head of bed elevated. 11:20 Inserted saline lock: 20 gauge in left antecubital area, using aseptic technique. Blood sv collected. Flushed left antecubital with 5 ml normal saline. 12:41 CT completed. Patient tolerated procedure well. Patient moved back from CT. bq 12:43 CT Stone Protocol In Process Unspecified. EDMS 14:30 No provider procedures requiring assistance completed. IV discontinued, intact, sv bleeding controlled, No redness/swelling at site. Pressure dressing applied. Administered Medications: 11:34 Drug: Zofran 4 mg Route: IVP; Site: left antecubital; sv 12:30 Follow up: Response: No adverse reaction; Nausea is decreased sg 11:36 Drug: morphine 4 mg Route: IVP; Site: left antecubital; sv 12:30 Follow up: Response: No adverse reaction; Pain is decreased sg Outcome: 13:33 Discharge ordered by MD. falk 14:30 Discharged to home ambulatory, with family. sg 14:30 Condition: good 14:30 Discharge instructions given to patient, family, Instructed on discharge instructions, follow up and referral plans. no drinking with medication, no driving heavy equipment, medication usage, safety practices, Demonstrated understanding of instructions, follow-up care, medications, Prescriptions given X 1. 14:43 Patient left the ED. eb Signatures: Dispatcher [employer] EDWA Judie Tomas RN RN Michael Rosado RN RN sg Quilty, Betty bq Martinez, Amelia as Attema, Lee, LACER AND TIER-C LACER AND TIER-Cla1 Tramaine Lacy RN RN Yvette Sam
--- NOTE | 2019-04-30 13:34 | EDPHYS ---
Physician Documentation [facility] Name: Venessa Almazan Age: 38 yrs Sex: Female : 1980 Arrival Date: 04/30/2019 Time: 10:36 Bed 2 Private MD: ED Physician Ang Denise HPI: 04/30 11:19 This 38 yrs old Female presents to ER via Ambulatory with complaints of Back la1 Pain. 11:19 The patient presents with pain that is acute. The symptoms are located in the low back. la1 Onset: The symptoms/episode began/occurred 1 week(s) ago. The pain does not radiate. Associated signs and symptoms: Pertinent positives: abdominal pain, hematuria. The problem was sustained when bending over, when lifting. Modifying factors: The patient symptoms are alleviated by nothing, the patient symptoms are aggravated by any movement, bending, movement. Severity of symptoms: At their worst the symptoms were mild, in the emergency department the symptoms are unchanged. Pt reports she has had back pain for a week, worse the last three days, reported blood in urine at home, pain radiates to abd. 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 - Ebola Screening: : Patient negative for fever greater than or equal to 101.5 degrees Fahrenheit, and additional compatible Ebola Virus Disease symptoms. ROS: 11:21 Constitutional: Negative for fever, chills, and weight loss, Eyes: Negative for injury, la1 pain, redness, and discharge, ENT: Negative for injury, pain, and discharge, Neck: Negative for injury, pain, and swelling, Cardiovascular: Negative for chest pain, palpitations, and edema, Respiratory: Negative for shortness of breath, cough, wheezing, and pleuritic chest pain. 11:21 Abdomen/GI: Negative for abdominal pain, nausea, vomiting, diarrhea, and constipation. 11:21 MS/Extremity: Negative for injury and deformity, Skin: Negative for injury, rash, and discoloration, Neuro: Negative for headache, weakness, numbness, tingling, and seizure. 11:21 Back: Positive for pain at rest, pain with movement, flank pain. Exam: 11:21 Constitutional: This is a well developed, well nourished patient who is awake, alert, la1 and in no acute distress. Head/Face: Normocephalic, atraumatic. Eyes: Pupils equal round and reactive to light, extra-ocular motions intact. Lids and lashes normal. Conjunctiva and sclera are non-icteric and not injected. Cornea within normal limits. Periorbital areas with no swelling, redness, or edema. Neck: . No Meningismus. Chest/axilla: Normal chest wall appearance and motion. Nontender with no deformity. No lesions are appreciated. Cardiovascular: Regular rate and rhythm with a normal S1 and S2. No gallops, murmurs, or rubs. Normal PMI, no JVD. No pulse deficits. Respiratory: Lungs have equal breath sounds bilaterally, clear to auscultation . No rales, rhonchi or wheezes noted. No increased work of breathing, no retractions or nasal flaring. Abdomen/GI: Soft, non-tender, with normal bowel sounds. No distension or tympany. No guarding or rebound. No evidence of tenderness throughout. 11:21 Back: pain, that is moderate, ROM is normal, CVA tenderness, is absent, vertebral tenderness, is not appreciated, Straight leg raises: pain bilaterally. 13:33 Neuro: Orientation: is normal, appropriate for stated age, Cranial nerves: CN II- XII la1 are normal as tested, Cerebellar function: is grossly normal, Sensation: is normal. Vital Signs: 10:51 BP 146 / 101; Pulse 67; Resp 18; Temp 97.5; Pulse Ox 100% ; Weight 81.65 kg; Height 5 sr5 ft. 0 in. (152.40 cm); Pain 10/10; 11:32 BP 148 / 94; Pulse 77; Resp 16; Pulse Ox 100% ; sv 12:30 BP 121 / 80; Pulse 65; Resp 16; Pulse Ox 97% ; sv 10:51 Body Mass Index 35.15 (81.65 kg, 152.40 cm) sr5 MDM: 11:07 Patient medically screened. [facility] 13:32 Data reviewed: vital signs, nurses notes, lab test result(s), radiologic studies, I la1 have discussed the patient's presentation/case with the attending Emergency Department Physician; and as a result, I will discharge patient. Data interpreted: Pulse oximetry: on room air is 97 %. Interpretation: normal. Counseling: I had a detailed discussion with the patient and/or guardian regarding: the historical points, exam findings, and any diagnostic results supporting the discharge/admit diagnosis, lab results, radiology results, to return to the emergency department if symptoms worsen or persist or if there are any questions or concerns that arise at home. Medication response: morphine markedly relieved the patient's pain. Symptoms have improved. Special discussion: Based on the patient's Hx, exam, and Dx evaluation, there is no indication for emergent surgery or inpatient Tx. It is understood by the patient/guardian that if the Sx's persist or worsen they need to return immediately for re-evaluation. 04/30 11:13 Order name: Basic Metabolic Panel; Complete Time: 12:27 04/30 11:13 Order name: CBC with Diff; Complete Time: 12:27 04/30 11:13 Order name: Hepatic Function; Complete Time: 12:27 04/30 11:13 Order name: Lipase; Complete Time: 12:27 04/30 11:25 Order name: Test, Serum; Complete Time: 12:27 04/30 11:29 Order name: Urine Dipstick--Ancillary (enter results) 04/30 11:13 Order name: IV Saline Lock; Complete Time: 11:37 04/30 11:13 Order name: Labs collected and sent; Complete Time: 11:37 04/30 11:13 Order name: Urine Dipstick-Ancillary (obtain specimen); Complete Time: 11:24 04/30 11:13 Order name: Urine Test (obtain specimen); Complete Time: 11:23 04/30 11:53 Order name: CT Stone Protocol; Complete Time: 13:24 la Administered Medications: 11:34 Drug: Zofran 4 mg Route: IVP; Site: left antecubital; sv 12:30 Follow up: Response: No adverse reaction; Nausea is decreased sg 11:36 Drug: morphine 4 mg Route: IVP; Site: left antecubital; sv 12:30 Follow up: Response: No adverse reaction; Pain is decreased sg Disposition: 19:55 Co-signature as Attending Physician, Ang Denise MD I agree with the assessment and marlyn plan of care. Disposition: 04/30/19 13:33 Discharged to Home. Impression: Low back pain. - Condition is Stable. - Discharge Instructions: Back Pain, Adult, Musculoskeletal Pain, Back Pain, Adult, [id number], Back Exercises, [id number]. - Prescriptions for Robaxin 500 mg Oral Tablet - take 2 tablet by ORAL route every 6 hours As needed; 40 tablet. - Work release form, Medication Reconciliation Form, Thank You Letter form. - Follow up: Private Physician; When: 2 - 3 days; Reason: Recheck today's complaints, Re-evaluation by your physician. Follow up: Emergency Department; When: As needed; Reason: Worsening of condition. - Problem is new. - Symptoms have improved. Signatures: Dispatcher [employer] Judie Kennedy RN Ang June MD MD cha Attema, Lee, HEEL BURNISHER-C HEEL BURNISHER-Cla1 Tramaine Lacy RN RN sr5 Yvette Tompkins Steven RN sg Corrections: (The following items were deleted from the chart) 14:43 13:33 04/30/2019 13:33 Discharged to Home. Impression: Low back pain. Condition is eb Stable. Forms are Medication Reconciliation Form, Thank You Letter, Antibiotic Education, Prescription Opioid Use. Follow up: Private Physician; When: 2 - 3 days; Reason: Recheck today's complaints, Re-evaluation by your physician. Follow up: Emergency Department; When: As needed; Reason: Worsening of condition. Problem is new. Symptoms have improved. la1
[2019-04-30 14:12] LABS: Urine Blood NEGATIVE (NEG); Urine Glucose NEGATIVE (NEG); Urine Protein NEGATIVE (NEG); Urine Specific Gravity <1.005 (1.005-1.030)
[2019-04-30 14:51] VITALS: TEMP 97.5
[2019-04-30 14:53] VITALS: BP 121/80; O2SAT 97
== END 2019-04-30 14:43 | disposition home or self-care (01) ==
LOC: ER 10:35
DX: M54.5 Low back pain (principal); I10 Essential (primary) hypertension
CPT/HCPCS: 85025; 80048; 36415; 84703; 80076; 81003; 83690; 76377; 74176; 96375; 96374; 99284; J2405

== ENCOUNTER 2019-10-12 15:46 | Emergency (ER) | payer BC, SELFPAY ==
[2019-10-12] MEDS ORDERED: MORPHINE 2 MG/ML SYR ONE (16:53)
[2019-10-12] MEDS ORDERED: KETOROLAC 30 MG/ML INJ ONE (16:53)
[2019-10-12] MEDS ORDERED: ONDANSETRON 4 MG/2 ML VIAL ONE (16:53)
[2019-10-12] MEDS ORDERED: NA CHLORIDE 0.9% 1,000 ML ONE (16:53)
[2019-10-12 17:15] LABS: ALT/SGPT 22 U/L (12-78); AST/SGOT 14 U/L (15-37); Albumin 3.8 g/dL (3.4-5.0); Alkaline Phosphatase 106 U/L (45-117); BUN Blood Urea Nitrogen 10 mg/dL (7-18); Bicarbonate 26 mmol/L (21-32); Bilirubin Total 0.3 mg/dL (0.2-1.0); Glucose Level 99 mg/dL (74-106); Potassium 3.5 mmol/L (3.5-5.1); Protein, Total 7.4 g/dL (6.4-8.2); Sodium Level 142 mmol/L (136-145)
--- NOTE | 2019-10-12 17:15 | RAD REPORT ---
EXAM DESCRIPTION: RAD - Chest Single View - 10/12/2019 4:54 pm CLINICAL HISTORY: COUGH Chest pain. COMPARISON: Chest Single View dated 03/17/2019; Chest Single View dated 12/20/2017; Chest Pa And Lat (2 Views) dated 05/01/2017 FINDINGS: Portable technique limits examination quality. The lungs are grossly clear. The heart is normal in size. No displaced fractures. IMPRESSION: No acute intrathoracic process suspected.
[2019-10-12 17:17] LABS: Absolute Lymphocytes (CBC) 1.9 K/uL (0.7-4.9); Hematocrit 33.8 % (36.0-45.0); MPV 9.5 fL (7.6-11.3)
--- NOTE | 2019-10-12 17:24 | RAD REPORT ---
EXAM DESCRIPTION: CT - Head Brain Wo Cont - 10/12/2019 5:16 pm CLINICAL HISTORY: HEADACHE Headache, drowsiness COMPARISON: Head angio dated 10/12/2019 TECHNIQUE: All CT scans are performed using dose optimization technique as appropriate and may inclu de automated exposure control or mA/KV adjustment according to patient size. FINDINGS: No intracranial hemorrhage, hydrocephalus or extra-axial fluid collection.No areas of brai n edema or evidence of midline shift. The paranasal sinuses and mastoids are clear. The calvarium is intact. IMPRESSION: No acute intracranial abnormality.
--- NOTE | 2019-10-12 17:27 | RAD REPORT ---
EXAM DESCRIPTION: CT - Head angio - 10/12/2019 5:16 pm CLINICAL HISTORY: HEADACHE Headache, drowsiness COMPARISON: No comparisons TECHNIQUE: CT angiography of the head was performed with MIPs. All CT scans are performed using dose optimization technique as appropriate and may include automated exposure control or mA/KV adjustment according to patient size. FINDINGS: No evidence of aneurysm is detected. No flow-limiting stenosis or vascular malformation id entified. Antegrade flow is seen in the vertebral arteries. The vertebral arteries are codominant. The visualized dural venous sinuses are patent. IMPRESSION: No significant flow abnormality is detected.
--- NOTE | 2019-10-12 18:21 | ER ---
Nurse's Notes [facility] Name: Venessa Almazan Age: 38 yrs Sex: Female : 1980 Arrival Date: 10/12/2019 Time: 15:49 Bed 18 Private MD: Diagnosis: Headache;Essential (primary) hypertension Presentation: 10/11 15:50 Chief complaint: EMS states: Malaise, headache, nausea, and body aches x 3 days. hb Coronavirus screen: Proceed with normal triage. Ebola Screen: No symptoms or risks identified at this time. Initial Sepsis Screen: Does the patient meet any 2 criteria? No. Patient's initial sepsis screen is negative. Does the patient have a suspected source of infection? No. Patient's initial sepsis screen is negative. Risk Assessment: Do you want to hurt yourself or someone else? Patient reports no desire to harm self or others. Onset of symptoms was October 09, 2019. 15:50 Method Of Arrival: EMS: [facility] hb 15:50 Acuity: ADAN 3 hb Historical: - Allergies: 15:52 NKA; hb - PMHx: 15:52 Depression; hypertension- no meds; hb - PSHx: 15:52 Cholecystectomy; Appendectomy; hb - Immunization history:: Adult Immunizations up to date. - Social history:: Smoking status: Patient denies any tobacco usage or history of. - Family history:: not pertinent. Screenin:45 Abuse screen: Denies threats or abuse. Nutritional screening: No deficits noted. tw2 Tuberculosis screening: No symptoms or risk factors identified. Fall Risk None identified. Assessment: 16:10 General: Appears in no apparent distress. uncomfortable, Behavior is calm, cooperative, vc appropriate for age. Pain: Complains of pain in forehead Pain currently is 10 out of 10 on a pain scale. Quality of pain is described as pressure, stabbing, squeezing, Pain began 2-3 days ago. Is Aggravated by light, movement Noted to be grimacing, guarding. Neuro: Level of Consciousness is awake, alert, obeys commands, Oriented to person, place, time, situation, Appropriate for age. Neuro: Reports dizziness, headache photophobia. Cardiovascular: Capillary refill < 3 seconds Patient's skin is warm and dry. Respiratory: Airway is patent Respiratory effort is even, unlabored, Respiratory pattern is regular, symmetrical. GI: Abdomen is non-distended, Bowel sounds present X 4 quads. hyperactive in right upper quadrant, left upper quadrant, right lower quadrant and left lower quadrant. : No deficits noted. EENT: No signs and/or symptoms were reported regarding the EENT system. Derm: Skin is intact, is healthy with good turgor, Skin temperature is warm. Musculoskeletal: Circulation, motion, and sensation intact. Range of motion: intact in all extremities. 17:45 Reassessment: Patient appears in no apparent distress at this time. Patient and/or vc family updated on plan of care and expected duration. Pain level reassessed. Patient states symptoms have improved. 18:28 Reassessment: Patient appears in no apparent distress at this time. Patient and/or vc family updated on plan of care and expected duration. Pain level reassessed. Patient states feeling better. Patient states symptoms have improved. 19:18 Reassessment: pt to be discharged to home after PO Norvasc. sg Vital Signs: 15:50 BP 180 / 111; Pulse 86; Resp 16; Temp 99.4(TE); Pulse Ox 100% ; Weight 80.74 kg; Height hb 5 ft. 4 in. (162.56 cm); Pain 10/10; 17:45 BP 150 / 92; Pulse 79; Resp 16; Pulse Ox 100% on R/A; vc 18:29 BP 143 / 88; Pulse 77; Resp 15; Pulse Ox 97% on R/A; vc 18:33 Temp 98.2(O); vc 18:42 BP 178 / 94; Pulse 76; Resp 16; Pulse Ox 97% on R/A; vc 19:14 BP 149 / 102; Pulse 78; sg 19:18 BP 157 / 92; Pulse 82; sg 19:45 BP 152 / 94; Pulse 73; Resp 16; Pulse Ox 97% on R/A; vc 15:50 Body Mass Index 30.55 (80.74 kg, 162.56 cm) hb [place]yvi Coma Score: 18:26 Eye Response: spontaneous(4). Verbal Response: oriented(5). Motor Response: obeys marlyn commands(6). Total: 15. ED Course: 15:49 Patient arrived in ED. hb 15:50 Ang Denise MD is Attending Physician. marlyn 15:50 Bed in low position. Call light in reach. tw2 15:52 Triage completed. hb 15:52 Arm band placed on. hb 16:09 Ina Cazares, RN is Primary Nurse. vc 16:49 Warm blanket given. Pillow given. Verbal reassurance given. Pulse ox on. NIBP on. jp3 16:49 Initial lab(s) drawn, by me, sent to lab. Inserted saline lock: 20 gauge in right jp3 antecubital area, using aseptic technique. Blood collected. Patient maintains SpO2 saturation greater than 95% on room air. 16:54 Chest Single View XRAY In Process Unspecified. EDMS 17:16 CT Head Brain wo Cont In Process Unspecified. EDMS 17:17 CT Head Angio In Process Unspecified. EDMS 18:20 Gaston Pablo MD is Referral Physician. marlyn 19:50 No provider procedures requiring assistance completed. IV discontinued, intact, vc bleeding controlled, No redness/swelling at site. Pressure dressing applied. Administered Medications: 17:10 Drug: Zofran (Ondansetron) 4 mg Route: IVP; Site: right antecubital; vc 17:55 Follow up: Response: No adverse reaction; Marked relief of symptoms vc 17:11 Drug: NS 0.9% 1000 ml Route: IV; Rate: 1 bolus; Site: right antecubital; vc 18:31 Follow up: IV Status: Completed infusion; IV Intake: 500ml vc 17:11 Drug: TORadol 30 mg Route: IVP; Site: right antecubital; vc 17:55 Follow up: Response: No adverse reaction; Pain is decreased vc 17:11 Drug: morphine 2 mg Route: IVP; Site: right antecubital; vc 17:55 Follow up: Response: No adverse reaction; Marked relief of symptoms vc 19:18 Drug: Norvasc 5 mg Route: PO; sg Intake: 18:31 IV: 500ml; Total: 500ml. vc Outcome: 18:20 Discharge ordered by . marlyn 19:50 Patient left the ED. vc 19:50 Discharged to home ambulatory, with significant other. vc 19:50 Condition: improved 19:50 Discharge instructions given to patient, significant other, Instructed on discharge instructions, follow up and referral plans. no drinking with medication, no driving heavy equipment, medication usage, Demonstrated understanding of instructions, follow-up care, medications, Prescriptions given X 3. Signatures: Dispatcher [employer] Michael Huerta RN RN Ang Pierce MD MD cha Baxter, Heather, RN RN Faby Pretty RN RN tw2 Nik Mendez 3 Ina Cazares RN RN vc
--- NOTE | 2019-10-12 18:22 | EDPHYS ---
Physician Documentation [facility] Name: Venessa Almazan Age: 38 yrs Sex: Female : 1980 Arrival Date: 10/12/2019 Time: 15:49 Bed 18 Private MD: ED Physician Ang Denise HPI: 10/11 16:38 This 38 yrs old Female presents to ER via EMS with complaints of Headache. marlyn 16:38 The patient complains of pain to the top of head, forehead, left frontal area, left marlyn side of the back of head, left occipital area, left base of the skull, right frontal area, right side of the back of head, right occipital area and right base of the skull. The patient describes the headache as aching. Onset: The symptoms/episode began/occurred 3 day(s) ago. Associated signs and symptoms: The patient has no apparent associated signs or symptoms. Severity of symptoms: At its worst the pain was mild, in the emergency department the pain is unchanged. Headache History: Denies prior headaches. The patient has not experienced similar symptoms in the past. Historical: - Allergies: 15:52 NKA; hb - PMHx: 15:52 Depression; hypertension- no meds; hb - PSHx: 15:52 Cholecystectomy; Appendectomy; hb - Immunization history:: Adult Immunizations up to date. - Social history:: Smoking status: Patient denies any tobacco usage or history of. - Family history:: not pertinent. ROS: 16:38 Constitutional: Negative for fever, chills, and weight loss, Eyes: Negative for injury, marlyn pain, redness, and discharge, ENT: Negative for injury, pain, and discharge, Neck: Negative for injury, pain, and swelling, Cardiovascular: Negative for chest pain, palpitations, and edema, Respiratory: Negative for shortness of breath, cough, wheezing, and pleuritic chest pain, Abdomen/GI: Negative for abdominal pain, nausea, vomiting, diarrhea, and constipation, Back: Negative for injury and pain, : Negative for injury, bleeding, discharge, and swelling, MS/Extremity: Negative for injury and deformity, Skin: Negative for injury, rash, and discoloration, Psych: Negative for depression, anxiety, suicide ideation, homicidal ideation, and hallucinations, Allergy/Immunology: Negative for hives, rash, and allergies, Endocrine: Negative for neck swelling, polydipsia, polyuria, polyphagia, and marked weight changes, Hematologic/Lymphatic: Negative for swollen nodes, abnormal bleeding, and unusual bruising. 16:38 Neuro: Positive for headache. Exam: 16:38 Constitutional: This is a well developed, well nourished patient who is awake, alert, marlyn and in no acute distress. Head/Face: Normocephalic, atraumatic. Eyes: Pupils equal round and reactive to light, extra-ocular motions intact. Lids and lashes normal. Conjunctiva and sclera are non-icteric and not injected. Cornea within normal limits. Periorbital areas with no swelling, redness, or edema. ENT: Nares patent. No nasal discharge, no septal abnormalities noted. Tympanic membranes are normal and external auditory canals are clear. Oropharynx with no redness, swelling, or masses, exudates, or evidence of obstruction, uvula midline. Mucous membranes moist. Neck: Trachea midline, no thyromegaly or masses palpated, and no cervical lymphadenopathy. Supple, full range of motion without nuchal rigidity, or vertebral point tenderness. No Meningismus. Chest/axilla: Normal chest wall appearance and motion. Nontender with no deformity. No lesions are appreciated. Cardiovascular: Regular rate and rhythm with a normal S1 and S2. No gallops, murmurs, or rubs. Normal PMI, no JVD. No pulse deficits. Respiratory: Lungs have equal breath sounds bilaterally, clear to auscultation and percussion. No rales, rhonchi or wheezes noted. No increased work of breathing, no retractions or nasal flaring. Abdomen/GI: Soft, non-tender, with normal bowel sounds. No distension or tympany. No guarding or rebound. No evidence of tenderness throughout. Back: No spinal tenderness. No costovertebral tenderness. Full range of motion. Skin: Warm, dry with normal turgor. Normal color with no rashes, no lesions, and no evidence of cellulitis. MS/ Extremity: Pulses equal, no cyanosis. Neurovascular intact. Full, normal range of motion. Neuro: Awake and alert, GCS 15, oriented to person, place, time, and situation. Cranial nerves II-XII grossly intact. Motor strength 5/5 in all extremities. Sensory grossly intact. Cerebellar exam normal. Normal gait. Psych: Awake, alert, with orientation to person, place and time. Behavior, mood, and affect are within normal limits. 16:38 Neck: External neck: is normal, no acute changes, ROM/movement: is normal, no acute changes, Meningeal signs: are not present, Kernig's sign is negative, Lymph nodes: no appreciated lymphadenopathy. 18:26 Musculoskeletal/extremity: DVT Exam: No signs of deep vein thrombosis. no pain, no marlyn swelling, no tenderness, negative Homans' sign noted on exam, no appreciated bluish discoloration, no erythema, no increased warmth. Vital Signs: 15:50 BP 180 / 111; Pulse 86; Resp 16; Temp 99.4(TE); Pulse Ox 100% ; Weight 80.74 kg; Height hb 5 ft. 4 in. (162.56 cm); Pain 10/10; 17:45 BP 150 / 92; Pulse 79; Resp 16; Pulse Ox 100% on R/A; vc 18:29 BP 143 / 88; Pulse 77; Resp 15; Pulse Ox 97% on R/A; vc 18:33 Temp 98.2(O); vc 18:42 BP 178 / 94; Pulse 76; Resp 16; Pulse Ox 97% on R/A; vc 19:14 BP 149 / 102; Pulse 78; sg 19:18 BP 157 / 92; Pulse 82; sg 19:45 BP 152 / 94; Pulse 73; Resp 16; Pulse Ox 97% on R/A; vc 15:50 Body Mass Index 30.55 (80.74 kg, 162.56 cm) hb [place] Coma Score: 18:26 Eye Response: spontaneous(4). Verbal Response: oriented(5). Motor Response: obeys marlyn commands(6). Total: 15. MDM: 15:50 Patient medically screened. marlyn 16:39 Data reviewed: vital signs, nurses notes, lab test result(s), EKG, radiologic studies, marlyn CT scan, plain films. 18:26 Differential diagnosis: hypertensive headache, intracerebral hemorrhage, subarachnoid marlyn bleed, subdural hematoma, tension headache. Data interpreted: media monitor: rate is 79 beats/min, rhythm is normal sinus rhythm, Pulse oximetry: on room air is 100 %. Test interpretation: by ED physician or midlevel provider: plain radiologic studies. Counseling: I had a detailed discussion with the patient and/or guardian regarding: the historical points, exam findings, and any diagnostic results supporting the discharge/admit diagnosis, lab results, radiology results, the need for outpatient follow up, for definitive care, a neurologist. Medication response: Zofran markedly relieved the patient's nausea. ED course: discussed labs and findings, will follow up , return if worsens. 10/11 16:35 Order name: CBC with Diff; Complete Time: 17:51 [facility] 10/11 16:35 Order name: Comprehensive Metabolic Panel; Complete Time: 17:51 [facility] 10/11 16:35 Order name: Urine Culture [facility] 10/11 17:12 Order name: CREATININE WHOLE BLOOD; Complete Time: 17:51 [facility]MS 10/11 18:29 Order name: Urine Dipstick--Ancillary (enter results) 10/11 18:29 Order name: Urine --Ancillary (enter results) 10/11 16:35 Order name: Chest Single View XRAY; Complete Time: 18:30 [facility] 10/11 16:35 Order name: CT Head Brain wo Cont; Complete Time: 18:30 [facility] 10/11 16:35 Order name: CT Head Angio; Complete Time: 18:30 [facility] 10/11 16:35 Order name: Urine Dipstick-Ancillary (obtain specimen); Complete Time: 18:31 [facility] 10/11 18:17 Order name: Vital Signs; Complete Time: 18:31 [facility] Administered Medications: 17:10 Drug: Zofran (Ondansetron) 4 mg Route: IVP; Site: right antecubital; vc 17:55 Follow up: Response: No adverse reaction; Marked relief of symptoms vc 17:11 Drug: NS 0.9% 1000 ml Route: IV; Rate: 1 bolus; Site: right antecubital; vc 18:31 Follow up: IV Status: Completed infusion; IV Intake: 500ml vc 17:11 Drug: TORadol 30 mg Route: IVP; Site: right antecubital; vc 17:55 Follow up: Response: No adverse reaction; Pain is decreased vc 17:11 Drug: morphine 2 mg Route: IVP; Site: right antecubital; vc 17:55 Follow up: Response: No adverse reaction; Marked relief of symptoms vc 19:18 Drug: Norvasc 5 mg Route: PO; sg Disposition: 06/10/20 18:20 Discharged to Home. Impression: Headache, Essential (primary) hypertension. - Condition is Stable. - Discharge Instructions: General Headache Without Cause, Hypertension, Hypertension, [id number], How to Take Your Blood Pressure, [id number], General Headache Without Cause, [id number], Managing Your Hypertension. - Prescriptions for Norvasc 5 mg Oral Tablet - take 1 tablet by ORAL route once daily; 20 tablet. Fioricet with Codeine 50- 325-40-30 mg Oral capsule - take 1 capsule by ORAL route every 4 hours as needed not to exceed 6 capsules per 24hrs; 20 capsule. Zofran 4 mg Oral Tablet - take 1 tablet by ORAL route every 12 hours As needed; 20 tablet. - Medication Reconciliation Form, Thank You Letter, Antibiotic Education, Prescription Opioid Use, Work release form form. - Follow up: Private Physician; When: 2 - 3 days; Reason: Recheck today's complaints, Continuance of care, Re-evaluation by your physician. Follow up: Gaston Pablo MD; When: 2 - 3 days; Reason: Recheck today's complaints, Re-evaluation by your physician. - Problem is new. - Symptoms have improved. Signatures: Dispatcher [employer] EDMichael Schulz RN RN sg Anderson, Corey, MD MD cha Baxter, Heather, RN RN hb Davies, Jonathon, RN RN jIna Belrtan RN RN vc Corrections: (The following items were deleted from the chart) 19:50 18:20 10/12/2019 18:20 Discharged to Home. Impression: Headache; Essential (primary) vc hypertension. Condition is Stable. Forms are Medication Reconciliation Form, Thank You Letter, Antibiotic Education, Prescription Opioid Use. Follow up: Private Physician; When: 2 - 3 days; Reason: Recheck today's complaints, Continuance of care, Re-evaluation by your physician. Follow up: Gaston Pablo; When: 2 - 3 days; Reason: Recheck today's complaints, Re-evaluation by your physician. Problem is new. Symptoms have improved. marlyn
[2019-10-12 18:36] LABS: Urine Blood TRACE (NEG); Urine Glucose NEGATIVE (NEG); Urine Protein NEGATIVE (NEG); Urine Specific Gravity 1.015 (1.005-1.030); Urine pH 5.5 (5.0-7.0)
[2019-10-12] MEDS ORDERED: AMLODIPINE 5 MG TAB ONE (19:24)
== END 2019-10-12 19:50 | disposition home or self-care (01) ==
LOC: ER 15:46
DX: I10 Essential (primary) hypertension (principal)
CPT/HCPCS: 36415; 70450; 70496; 71045; 80053; 81003; 81025; 82565; 85025; 87086; 87088; 96361; 96374; 96375; 99285; J2270; J2405; J7030; Q9967

== ENCOUNTER 2020-02-12 17:43 | Emergency (ER) | payer SELFPAY ==
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
--- NOTE | 2020-02-12 18:26 | ER ---
Nurse's Notes [facility] Name: Venessa Almazan Age: 39 yrs Sex: Female : 1980 Arrival Date: 02/12/2020 Time: 17:45 Bed 20 Private MD: Diagnosis: Muscle spasm;Pain in right shoulder Presentation: 02/11 17:52 Chief complaint: Patient states: Continued RUE pain since having arm twisted behind her ll1 8 days ago by Jackie. Was seen at ER in [place], still has significant pain. Coronavirus screen: Client denies travel out of the [place] in the last 14 days. At this time, the client does not indicate any symptoms associated with coronavirus-19. Ebola Screen: Patient denies travel to an Ebola-affected area in the 21 days before illness onset. Initial Sepsis Screen: Does the patient meet any 2 criteria? No. Patient's initial sepsis screen is negative. Does the patient have a suspected source of infection? Yes: Bone or joint infection. Risk Assessment: Do you want to hurt yourself or someone else? Patient reports no desire to harm self or others. Onset of symptoms was February 04, 2020. 17:52 Method Of Arrival: Ambulatory ll1 17:52 Acuity: ADAN 4 ll1 Historical: - Allergies: 17:54 NKA; ll1 - PMHx: 17:54 Depression; hypertension- no meds; ll1 - PSHx: 17:54 Cholecystectomy; Appendectomy; ll1 - Immunization history:: Flu vaccine is not up to date. - Social history:: Smoking status: Patient denies any tobacco usage or history of. Screenin:01 Abuse screen: Denies threats or abuse. Nutritional screening: No deficits noted. em Tuberculosis screening: No symptoms or risk factors identified. Fall Risk None identified. Assessment: 18:25 General: Appears in no apparent distress. uncomfortable, Behavior is calm, cooperative, em appropriate for age, Denies fever. Pain: Complains of pain in right shoulder Pain currently is 10 out of 10 on a pain scale. Neuro: Level of Consciousness is awake, alert, obeys commands, Oriented to person, place, time, situation, Appropriate for age. Cardiovascular: Capillary refill < 3 seconds Patient's skin is warm and dry. Respiratory: Airway is patent Respiratory effort is even, unlabored, Respiratory pattern is regular, symmetrical. Derm: Skin is intact, is healthy with good turgor, Skin is pink, warm \T\ dry. Musculoskeletal: Capillary refill < 3 seconds, Range of motion: limited in right shoulder. Vital Signs: 17:52 BP 171 / 113; Pulse 87; Resp 18; Temp 98.3; Pulse Ox 95% ; Pain 10/10; ll1 18:11 BP 141 / 103 LA (auto/lg); Pulse 90; Pulse Ox 96% on R/A; jp3 ED Course: 17:45 Patient arrived in ED. ds1 17:53 Triage completed. ll1 17:54 Arm band placed on Patient placed in an exam room, on a stretcher. ll1 17:56 Aureliano Welch, RN is Primary Nurse. em 18:01 Patient has correct armband on for positive identification. Bed in low position. Call em light in reach. 18:08 Warm blanket given. Verbal reassurance given. jp3 18:08 Pulse ox on. NIBP on. jp3 18:11 Aidee Lopez FNP-C is [facility]. snw 18:11 Dionisio Walker MD is Attending Physician. snw 18:11 Patient maintains SpO2 saturation greater than 95% on room air. jp3 18:50 No provider procedures requiring assistance completed. Patient did not have IV access em during this emergency room visit. Administered Medications: 18:38 Drug: [place] 5 mg-325 mg 1 tabs Route: PO; em 18:52 Follow up: Response: No adverse reaction em 18:38 Drug: TORadol 60 mg Route: IM; Site: right gluteus; em 18:52 Follow up: Response: No adverse reaction em 18:38 Drug: Flexeril 10 mg Route: PO; em 18:52 Follow up: Response: No adverse reaction em Outcome: 18:26 Discharge ordered by . snw 18:50 Discharged to home ambulatory, with family. em 18:50 Condition: good 18:50 Discharge instructions given to patient, Instructed on discharge instructions, follow up and referral plans. medication usage, Demonstrated understanding of instructions, follow-up care, medications, Prescriptions given X 2. 18:52 Patient left the ED. em Signatures: Aidee Lopez FNP-C ASSISTANT SITE MANAGER-Csnw Aureliano Welch, RN RN Sherry Caro ds1 Nik Mendez jp3 Dain Monique, RN RN ll1
[2020-02-12] MEDS ORDERED: HYDROCODONE/APAP 5/325 MG TAB ONE (18:43)
[2020-02-12] MEDS ORDERED: CYCLOBENZAPRINE 10 MG TAB ONE (18:43)
[2020-02-12] MEDS ORDERED: KETOROLAC 30 MG/ML INJ ONE (18:43)
[2020-02-12 18:58] VITALS: TEMP 98.3
[2020-02-12 18:59] VITALS: BP 141/103; O2SAT 96
== END 2020-02-12 18:52 | disposition home or self-care (01) ==
LOC: ER 17:43
DX: M62.838 Other muscle spasm (principal); I10 Essential (primary) hypertension
CPT/HCPCS: 96372; 99284

== ENCOUNTER 2020-10-17 18:50 | Emergency (ER) | payer SELFPAY ==
[2020-10-17] MEDS ORDERED: LIDOCAINE VISCOUS 2% SOLN 15 ML UDC ONE (20:01)
[2020-10-17] MEDS ORDERED: MAGNES/ALUMIN/SIMET 30ML UCUP ONE (20:01)
[2020-10-17 20:03] LABS: Absolute Lymphocytes (CBC) 2.2 K/uL (0.7-4.9); Basophils % 1.3 % (0-1.3); Hematocrit 33.1 % (36.0-45.0); Lymphocytes % 29.4 % (15.3-44.8); MPV 9.2 fL (7.6-11.3); RBC Red Blood Cell Count 3.64 M/uL (3.86-4.86)
[2020-10-17 20:17] LABS: Urine Blood Trace-intact (Negative); Urine Glucose Negative (Negative); Urine Protein Negative (Negative); Urine Specific Gravity >=1.030 (1.005-1.030)
[2020-10-17 20:30] LABS: ALT/SGPT 23 U/L (12-78); AST/SGOT 13 U/L (15-37); Albumin 3.5 g/dL (3.4-5.0); Alkaline Phosphatase 116 U/L (45-117); BUN Blood Urea Nitrogen 14 mg/dL (7-18); Bicarbonate 28 mmol/L (21-32); Bilirubin Direct < 0.1 mg/dL (0-0.2); Bilirubin Total 0.2 mg/dL (0.2-1.0); Glucose Level 97 mg/dL (74-106); Lipase 175 U/L (73-393); Potassium 3.7 mmol/L (3.5-5.1); Protein, Total 7.1 g/dL (6.4-8.2); Sodium Level 144 mmol/L (136-145)
--- NOTE | 2020-10-17 21:07 | RAD REPORT ---
EXAM DESCRIPTION: CTAbdomen Pelvis W Contrast - 10/17/2020 8:58 pm CLINICAL HISTORY: Abdominal pain. Abd pain;Epigastric pain COMPARISON: Abdomen Pelvis W Contrast dated 01/18/2018; Abdomen Pelvis W Contrast dated 05/14/2016 TECHNIQUE: Biphasic CT imaging of the abdomen and pelvis was performed with 100 ml non-ionic IV cont rast. All CT scans are performed using dose optimization technique as appropriate and may include automated exposure control or mA/KV adjustment according to patient size. FINDINGS: The lung bases are clear.Cholecystectomy. The liver, spleen, pancreas, adrenal glands are within normal limits. Mild bilateral hydronephrosis. No bowel obstruction, free air, free fluid or abscess. Appendectomy. No evidence of significant lym phadenopathy. No suspicious bony findings. Prominent uterus with fluid in the endometrial canal. IMPRESSION: Mild bilateral hydronephrosis is seen without obstructing calculus. The uterus is prominent in size with fluid in the endometrial canal.
--- NOTE | 2020-10-17 21:43 | ER ---
Nurse's Notes [facility] Name: Venessa Almazan Age: 39 yrs Sex: Female : 1980 Arrival Date: 10/17/2020 Time: 18:53 Bed 18 Private MD: Diagnosis: Gastritis, unspecified Presentation: 10/17 19:28 Coronavirus screen: Client denies travel out of the [place] in the last 14 days. At this ca1 time, the client does not indicate any symptoms associated with coronavirus-19. 19:28 Method Of Arrival: Ambulatory ca1 19:28 Chief complaint: Patient states: Epigastric pain radiating to the R side and to the ca1 back since yesterday. Denies N/V/D. 19:29 Ebola Screen: Patient negative for fever greater than or equal to 101.5 degrees ca1 Fahrenheit, and additional compatible Ebola Virus Disease symptoms Patient denies exposure to infectious person. Patient denies travel to an Ebola-affected area in the 21 days before illness onset. No symptoms or risks identified at this time. 19:29 Acuity: ADAN 3 ca1 19:29 Initial Sepsis Screen: Does the patient meet any 2 criteria? No. Patient's initial ca1 sepsis screen is negative. Does the patient have a suspected source of infection? No. Patient's initial sepsis screen is negative. 19:30 Initial Sepsis Screen: Does the patient meet any 2 criteria?. Risk Assessment: Do you ca1 want to hurt yourself or someone else? Patient reports no desire to harm self or others. Onset of symptoms was October 16, 2020. 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 Flu vaccine is not up to date. - Social history:: Smoking status: Patient denies any tobacco usage or history of. - Family history:: not pertinent. - Hospitalizations: : No recent hospitalization is reported. Screenin:48 Abuse screen: Denies threats or abuse. Denies injuries from another. Nutritional ad5 screening: No deficits noted. Tuberculosis screening: No symptoms or risk factors identified. Fall Risk None identified. Assessment: 19:46 General: Appears uncomfortable, Behavior is calm, cooperative, appropriate for age. ad5 Pain: Complains of pain in epigastric area radiates to back. Pain: Pain began 1 day ago. Neuro: Level of Consciousness is awake, alert, obeys commands, Oriented to person, place, time, situation, Appropriate for age. Cardiovascular: No deficits noted. Capillary refill < 3 seconds Patient's skin is warm and dry. Respiratory: No deficits noted. Airway is patent Respiratory effort is even, unlabored, Respiratory pattern is regular, symmetrical. GI: Abdomen is flat, Reports upper abdominal pain. : No deficits noted. No signs and/or symptoms were reported regarding the genitourinary system. EENT: No deficits noted. No signs and/or symptoms were reported regarding the EENT system. Derm: Skin is pink, warm \T\ dry. Musculoskeletal: No deficits noted. No signs and/or symptoms reported regarding the musculoskeletal system. Vital Signs: 19:30 BP 150 / 107; Pulse 87; Resp 18 S; Temp 97.1(TE); Pulse Ox 100% on R/A; Weight 81.65 kg ca1 (R); Height 5 ft. 0 in. (152.40 cm) (R); Pain 10/10; 21:56 BP 146 / 94; Pulse 80; Resp 16; Pulse Ox 98% ; jm8 19:30 Body Mass Index 35.15 (81.65 kg, 152.40 cm) ca1 ED Course: 18:53 Patient arrived in ED. am2 19:29 Triage completed. ca1 19:31 Arm band placed on right wrist. ca1 19:33 Elder Yates MD is Attending Physician. rn 19:46 Inserted saline lock: 20 gauge in right antecubital area, using aseptic technique. jm8 19:48 Patient has correct armband on for positive identification. Placed in gown. Bed in low ad5 position. Call light in reach. Side rails up X 1. Pulse ox on. NIBP on. 19:48 Door closed. Noise minimized. Head of bed lowered. ad5 20:58 CT Abd/Pelvis - IV Contrast Only In Process Unspecified. EDMS 21:43 Norbert Donaldson MD is Referral Physician. rn 22:09 No provider procedures requiring assistance completed. IV discontinued, intact. jm8 Administered Medications: 19:46 Drug: GI Cocktail without - (Maalox Suspension 30 ml, Lidocaine Liquid 2 % 15 ad5 ml) Route: PO; 22:08 Follow up: Response: No adverse reaction [facility] 22:07 Drug: Pepcid (famotidine) 20 mg Route: IVP; Site: right antecubital; jm8 22:08 Follow up: Response: No adverse reaction 8 22:08 Drug: Demerol (meperidine) 25 mg Route: IVP; Site: right antecubital; 8 22:08 Follow up: Response: No adverse reaction 8 Outcome: 21:43 Discharge ordered by . rn 22:10 Discharged to home ambulatory. [facility] 22:10 Condition: good 22:10 Discharge instructions given to patient, Instructed on discharge instructions, follow up and referral plans. medication usage, Demonstrated understanding of instructions, follow-up care, medications. 22:10 Patient left the ED. jm8 Signatures: Dispatcher [employer] EDMS Elder Yates MD MD rn Moreno, Amanda am2 Acob, Cheryl, RN RN ca1 Doug Urena RN RN jm8 Julius Pringle ad5
--- NOTE | 2020-10-17 21:44 | EDPHYS ---
Physician Documentation [facility] Name: Venessa Almazan Age: 39 yrs Sex: Female : 1980 Arrival Date: 10/17/2020 Time: 18:53 Bed 18 Private MD: ED Physician Elder Yates HPI: 10/17 21:20 This 39 yrs old Female presents to ER via Ambulatory with complaints of Flank rn Pain, Epigastric Pain. 21:20 The patient presents with abdominal pain in the epigastric area. Onset: The rn symptoms/episode began/occurred yesterday. The symptoms do not radiate. Associated signs and symptoms: Pertinent positives: nausea, Pertinent negatives: blood in stools, chest pain, diarrhea, dysuria, fever. The symptoms are described as achy, crampy. Modifying factors: The symptoms are alleviated by nothing, the symptoms are aggravated by touching the area. Severity of pain: At its worst the pain was moderate in the emergency department the pain is unchanged. The patient has not experienced similar symptoms in the past. The patient has not recently seen a physician. Reports epigastric abd pain, + nausea, no vomiting, no diarrhea. No fever. Has had gallbladder and appendix removed. . 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 Flu vaccine is not up to date. - Social history:: Smoking status: Patient denies any tobacco usage or history of. - Family history:: not pertinent. - Hospitalizations: : No recent hospitalization is reported. ROS: 21:20 Constitutional: Negative for fever, chills, and weight loss, Eyes: Negative for injury, rn pain, redness, and discharge, Neck: Negative for injury, pain, and swelling, Cardiovascular: Negative for chest pain, palpitations, and edema, Respiratory: Negative for shortness of breath, cough, wheezing, and pleuritic chest pain, Abdomen/GI: + epigastric pain and nausea Back: Negative for injury and pain, : Negative for injury, bleeding, discharge, and swelling, MS/Extremity: Negative for injury and deformity, Skin: Negative for injury, rash, and discoloration, Neuro: Negative for headache, weakness, numbness, tingling, and seizure. Exam: 21:20 Constitutional: This is a well developed, well nourished patient who is awake, alert, rn appears uncomfortable, holding epigastrium Head/Face: Normocephalic, atraumatic. ENT: MMM Cardiovascular: Regular rate and rhythm. No pulse deficits. Respiratory: No increased work of breathing, no retractions or nasal flaring. Abdomen/GI: Soft, + mild epigastric tenderness, no rebound Skin: Warm, dry with normal turgor. Normal color with no rashes, no lesions, and no evidence of cellulitis. MS/ Extremity: Pulses equal, no cyanosis. Neurovascular intact. Full, normal range of motion. Equal circumference. Neuro: Awake and alert, GCS 15, oriented to person, place, time, and situation. Cranial nerves II-XII grossly intact. Motor strength 5/5 in all extremities. Sensory grossly intact. Cerebellar exam normal. Normal gait. Vital Signs: 19:30 BP 150 / 107; Pulse 87; Resp 18 S; Temp 97.1(TE); Pulse Ox 100% on R/A; Weight 81.65 kg ca1 (R); Height 5 ft. 0 in. (152.40 cm) (R); Pain 10/10; 21:56 BP 146 / 94; Pulse 80; Resp 16; Pulse Ox 98% ; jm8 19:30 Body Mass Index 35.15 (81.65 kg, 152.40 cm) ca1 MDM: 19:33 Patient medically screened. rn 21:41 Differential diagnosis: gastritis, gastroesophageal reflux disease, non-specific abd rn pain, pancreatitis, Peptic Ulcer Disease, Pyelonephritis, Ureterolithiasis, urinary tract infection. Data reviewed: vital signs, nurses notes, lab test result(s), radiologic studies, CT scan, and as a result, I will discharge patient. Counseling: I had a detailed discussion with the patient and/or guardian regarding: the historical points, exam findings, and any diagnostic results supporting the discharge/admit diagnosis, lab results, radiology results, the need for outpatient follow up, to return to the emergency department if symptoms worsen or persist or if there are any questions or concerns that arise at home. Response to treatment: the patient's symptoms have mildly improved after treatment, and as a result, I will discharge patient. Special discussion: Based on the patient's Hx, exam, and Dx evaluation, there is no indication for emergent surgery or inpatient Tx. It is understood by the patient/guardian that if the Sx's persist or worsen they need to return immediately for re-evaluation. I discussed with the patient/guardian in detail that at this point there is no indication for admission to the hospital. It is understood, however, that if the symptoms persist or worsen the patient needs to return immediately for re-evaluation. Based on the history and exam findings, there is no indication for further emergent testing or inpatient evaluation. I discussed with the patient/guardian the need to see the certified surgical first assistant for further evaluation of the symptoms. I discussed with the patient/guardian the need to see the primary care provider for further evaluation of the symptoms. ED course: Pt improved with GI cocktail, no acute findings on CT abdomen, gallbladder and appendix out already, will dc home with antacids, prn zofran, and pain meds with return precautions and GI f/u.. 10/17 19:38 Order name: Basic Metabolic Panel 10/17 19:38 Order name: CBC with Diff; Complete Time: 21: 10/17 19:38 Order name: Hepatic Function; Complete Time: 21: 10/17 19:38 Order name: Lipase; Complete Time: 21: 10/17 19:38 Order name: Basic Metabolic Panel; Complete Time: 21:08 [facility] 10/17 20:17 Order name: Urine Dipstick-Ancillary; Complete Time: 21: [facility] 10/17 19:38 Order name: IV Saline Lock; Complete Time: 19:49 10/17 19:38 Order name: Labs collected and sent; Complete Time: 19:49 10/17 19:38 Order name: CT Abd/Pelvis - IV Contrast Only; Complete Time: 21: 10/17 20:19 Order name: Urine --Ancillary (enter results) 10/17 20:20 Order name: Urine --Ancillary; Complete Time: 21:08 [facility] 10/17 19:38 Order name: Urine Dipstick-Ancillary (obtain specimen); Complete Time: 20:19 10/17 19:38 Order name: Urine Test (obtain specimen); Complete Time: 20:20 rn Administered Medications: 19:46 Drug: GI Cocktail without - (Maalox Suspension 30 ml, Lidocaine Liquid 2 % 15 ad5 ml) Route: PO; 22:08 Follow up: Response: No adverse reaction [facility] 22:07 Drug: Pepcid (famotidine) 20 mg Route: IVP; Site: right antecubital; 8 22:08 Follow up: Response: No adverse reaction 8 22:08 Drug: Demerol (meperidine) 25 mg Route: IVP; Site: right antecubital; 8 22:08 Follow up: Response: No adverse reaction [facility] Disposition: 10/17/20 21:43 Discharged to Home. Impression: Gastritis, unspecified. - Condition is Stable. - Discharge Instructions: Gastritis, Adult. - Prescriptions for Zofran ODT 4 mg Oral tablet,disintegrating - place 1 tablet by TRANSLINGUAL route every 8 hours As needed; 20 tablet. Protonix 40 mg Oral Tablet - take 1 tablet by ORAL route once daily; 30 tablet. Ultram 50 mg Oral Tablet - take 1 tablet by ORAL route every 6 hours As needed; 12 tablet. - Medication Reconciliation Form, Thank You Letter, Antibiotic Education, Prescription Opioid Use, Work release form form. - Follow up: Norbert Donaldson MD; When: As needed; Reason: Recheck today's complaints, Re-evaluation by your physician. - Problem is new. - Symptoms have improved. Signatures: Dispatcher [employer] EDMS Elder Yates MD MD rn Acob, Cheryl, RN RN [facility] Doug Urena RN RN jm8 Julius Pringle ad5 Corrections: (The following items were deleted from the chart) 22:10 21:43 10/17/2020 21:43 Discharged to Home. Impression: Gastritis, unspecified. jm8 Condition is Stable. Forms are Medication Reconciliation Form, Thank You Letter, Antibiotic Education, Prescription Opioid Use. Follow up: Norbert Donaldson; When: As needed; Reason: Recheck today's complaints, Re-evaluation by your physician. Problem is new. Symptoms have improved. rn
[2020-10-17 22:17] VITALS: TEMP 97.1
[2020-10-17 22:18] VITALS: BP 146/94; O2SAT 98
[2020-10-17] MEDS ORDERED: MEPERIDINE HCL 25 MG/ML SYR ONE (22:20)
[2020-10-17] MEDS ORDERED: FAMOTIDINE 20 MG/2 ML VIAL IV ONE (22:20)
== END 2020-10-17 22:10 | disposition home or self-care (01) ==
LOC: ER 18:50
DX: K29.70 Gastritis, unspecified, without bleeding (principal)
CPT/HCPCS: 36415; 74177; 80048; 80076; 81003; 81025; 83690; 85025; J2175; Q9967

== ENCOUNTER 2020-10-23 10:27 | Emergency (ER) | payer SELFPAY ==
[2020-10-23 11:00] LABS: Absolute Lymphocytes (CBC) 1.7 K/uL (0.7-4.9); Basophils % 1.2 % (0-1.3); Hematocrit 38.4 % (36.0-45.0); Lymphocytes % 23.9 % (15.3-44.8); MPV 8.9 fL (7.6-11.3); RBC Red Blood Cell Count 4.21 M/uL (3.86-4.86)
[2020-10-23 11:15] LABS: ALT/SGPT 26 U/L (12-78); AST/SGOT 13 U/L (15-37); Albumin 3.8 g/dL (3.4-5.0); Alkaline Phosphatase 116 U/L (45-117); BUN Blood Urea Nitrogen 15 mg/dL (7-18); Bicarbonate 24 mmol/L (21-32); Bilirubin Direct < 0.1 mg/dL (0-0.2); Bilirubin Total 0.5 mg/dL (0.2-1.0); Glucose Level 122 mg/dL (74-106); Lipase 127 U/L (73-393); Potassium 3.5 mmol/L (3.5-5.1); Protein, Total 7.5 g/dL (6.4-8.2); Sodium Level 139 mmol/L (136-145)
[2020-10-23] MEDS ORDERED: MORPHINE 4 MG/ML SYR ONE (11:16)
[2020-10-23] MEDS ORDERED: ONDANSETRON 4 MG/2 ML VIAL ONE (11:16)
--- NOTE | 2020-10-23 12:04 | RAD REPORT ---
EXAM DESCRIPTION: US - Renal Ultrasound-Complete - 10/23/2020 11:40 am CLINICAL HISTORY: Abdominal pain. Hydronephrosis COMPARISON: October 17, 2020 cat scan FINDINGS: The right kidney measures 9 cm with a normal echotexture. The left kidney measures 11 cm with a normal echotexture. Hydronephrosis is not seen. No gross abnormality of bladder IMPRESSION: Unremarkable renal ultrasound.
--- NOTE | 2020-10-23 12:27 | RAD REPORT ---
EXAM DESCRIPTION: CT - Abdomen Pelvis Wo Contrast - 10/23/2020 12:17 pm CLINICAL HISTORY: Abdominal pain COMPARISON: October 17, 2020 TECHNIQUE: Computed axial tomography of the abdomen and pelvis was obtained. IV and oral contrast we re not requested. All CT scans are performed using dose optimization technique as appropriate and may include automated exposure control or mA/KV adjustment according to patient size. FINDINGS: The evaluation of solid organs, vessels and bowel is limited secondary to the lack of con trast administration. Cholecystectomy. The liver, spleen, pancreas, adrenals and right kidney appear grossly normal. The hydronephrosis has resolved. 1 millimeter nonobstructing left renal calculus Small umbilical hernia. No adnexal mass There is no evidence of diverticulitis. The bladder is distended IMPRESSION: Bladder distention 1 millimeter nonobstructing left renal calculus
[2020-10-23] MEDS ORDERED: KETOROLAC 30 MG/ML INJ ONE (12:30)
--- NOTE | 2020-10-23 14:24 | ER ---
Nurse's Notes [facility] Name: Venessa Almazan Age: 39 yrs Sex: Female : 1980 Arrival Date: 10/23/2020 Time: 10:28 Bed 6 Private MD: Diagnosis: Generalized abdominal pain Presentation: 10/23 10:35 Chief complaint: Patient states: Abdominal and back pain continues since her visit here 1 10/17. States she had N/V yesterday. No fever. Taking Protonix as prescribed. Coronavirus screen: Client denies travel out of the [place] in the last 14 days. nausea, vomiting. Client presents with at least one sign or symptom that may indicate coronavirus-19. Standard/surgical mask placed on the client. Ebola Screen: Patient denies travel to an Ebola-affected area in the 21 days before illness onset. Initial Sepsis Screen: Does the patient meet any 2 criteria? HR > 90 bpm. No. Patient's initial sepsis screen is negative. Does the patient have a suspected source of infection? Yes: Acute abdominal pain. Risk Assessment: Do you want to hurt yourself or someone else? Patient reports no desire to harm self or others. Onset of symptoms was October 16, 2020. 10:35 Method Of Arrival: Ambulatory 1 10:35 Acuity: ADAN 3 ll1 Triage Assessment: 10:35 General: Appears distressed, uncomfortable, Behavior is cooperative, appropriate for bp age, anxious. Pain: Complains of pain in abdomen. EENT: No deficits noted. Neuro: No deficits noted. Cardiovascular: No deficits noted. Respiratory: No deficits noted. GI: Reports lower abdominal pain, nausea, vomiting. : No signs and/or symptoms were reported regarding the genitourinary system. Derm: No deficits noted. Musculoskeletal: No deficits noted. Historical: - Allergies: 10:34 NKA; ll1 - PMHx: 10:34 Depression; hypertension- no meds; ll1 - PSHx: 10:34 Cholecystectomy; Appendectomy; ll1 - Immunization history:: Client reports having NOT received the Covid vaccine. Flu vaccine is not up to date. - Social history:: Smoking status: unknown. Screenin:36 Abuse screen: Denies threats or abuse. Denies injuries from another. Nutritional bp screening: No deficits noted. Tuberculosis screening: No symptoms or risk factors identified. Fall Risk None identified. Assessment: 10:36 General: SEE TRIAGE NOTE. bp 12:05 Reassessment: Patient appears in no apparent distress at this time. No changes from ld1 previously documented assessment. Patient and/or family updated on plan of care and expected duration. Pain level reassessed. Pt stated ABD discomfort was still present. Notified ERP. See [facility] for orders. 14:35 GI: Bowel sounds Abd is soft and non tender. iw Vital Signs: 10:34 BP 168 / 103; Pulse 98; Resp 17; Temp 98.5; Pulse Ox 99% ; bp 10:35 Weight 81.65 kg; Height 5 ft. 0 in. (152.40 cm); Pain 10/10; ll1 10:50 BP 144 / 108; Pulse 88; Resp 17; Pulse Ox 98% ; bp 12:11 BP 157 / 95; Pulse 74; Resp 15; Pulse Ox 98% ; jl7 13:05 BP 148 / 76; Pulse 80; Resp 18; Pulse Ox 100% on R/A; ld1 10:35 Body Mass Index 35.15 (81.65 kg, 152.40 cm) ll1 ED Course: 10:28 Patient arrived in ED. wm 10:34 Tyler Howell, RN is Primary Nurse. bp 10:34 Arm band placed on Patient placed in an exam room, on a stretcher. ll1 10:36 Triage completed. ll1 10:36 Patient has correct armband on for positive identification. Bed in low position. Call bp light in reach. Side rails up X2. Adult w/ patient. 10:36 Patient has correct armband on for positive identification. Bed in low position. Call ll1 light in reach. Side rails up X 1. 10:38 Devin Torres PA is PHCP. jr8 10:38 Tanner Steel MD is Attending Physician. jr8 10:50 Inserted saline lock: 20 gauge in right forearm, using aseptic technique. Blood bp collected. 14:03 CK Sent. ld1 14:03 Lactate Sent. ld1 14:10 CBC with Diff Sent. ld1 14:10 Hepatic Function Sent. ld1 14:10 Basic Metabolic Panel Sent. ld1 14:10 Lipase Sent. ld1 14:22 Devon Ford MD is Referral Physician. jr8 14:34 No provider procedures requiring assistance completed. IV discontinued, intact, iw bleeding controlled, No redness/swelling at site. Pressure dressing applied. Administered Medications: 10:57 Drug: morphine 4 mg Route: IVP; Site: right forearm; bp 12:30 Follow up: Response: No adverse reaction iw 10:57 Drug: Zofran (Ondansetron) 4 mg Route: IVP; Site: right forearm; bp 12:00 Follow up: Response: No adverse reaction iw 12:12 Drug: TORadol - (ketorolac) 15 mg Route: IVP; Site: right antecubital; ld1 12:40 Follow up: Response: No adverse reaction iw Outcome: 14:22 Discharge ordered by MD. jr8 14:34 Discharged to home ambulatory, with family. iw 14:34 Condition: good 14:34 Discharge instructions given to patient, Instructed on discharge instructions, follow up and referral plans. medication usage, Demonstrated understanding of instructions, follow-up care, medications, Prescriptions given X 2. 14:35 Patient left the ED. iw Signatures: Shahida Meeks, RN RN iw Devin Torres PA PA jr8 Patience Cuadra RN RN jl7 Tyler Howell RN RN Dain Craig RN RN ll1 Julia Coronado RN RN ld1 Edwige Iglesias
--- NOTE | 2020-10-23 14:24 | EDPHYS ---
Physician Documentation [facility] Name: Venessa Almazan Age: 39 yrs Sex: Female : 1980 Arrival Date: 10/23/2020 Time: 10:28 Bed 6 Private MD: ED Physician Tanner Steel HPI: 10/23 15:01 This 39 yrs old Female presents to ER via Ambulatory with complaints of jr8 Abdominal Pain. 15:01 The patient presents with abdominal pain that is diffuse. Onset: The symptoms/episode jr8 began/occurred gradually, 1 week(s) ago. The symptoms do not radiate. Associated signs and symptoms: Pertinent positives: nausea. The symptoms are described as crampy, sharp. Modifying factors: The symptoms are alleviated by nothing, the symptoms are aggravated by movement. Severity of pain: At its worst the pain was moderate in the emergency department the pain is unchanged. The patient has not experienced similar symptoms in the past. The patient has been recently seen at the [facility] Emergency Department, for similar complaints labs were performed, CT scan was performed. Patient stated that she continues to have diffuse contraction like feelings to entire abdomen without relief. Was evaluated on the 16 without significant findings. Historical: - Allergies: 10:34 NKA; ll1 - PMHx: 10:34 Depression; hypertension- no meds; ll1 - PSHx: 10:34 Cholecystectomy; Appendectomy; ll1 - Immunization history:: Client reports having NOT received the Covid vaccine. Flu vaccine is not up to date. - Social history:: Smoking status: unknown. ROS: 15:01 Eyes: Negative for injury, pain, redness, and discharge, ENT: Negative for injury, jr8 pain, and discharge, Neck: Negative for injury, pain, and swelling, Cardiovascular: Negative for chest pain, palpitations, and edema, Respiratory: Negative for shortness of breath, cough, wheezing, and pleuritic chest pain, Back: Negative for injury and pain, MS/Extremity: Negative for injury and deformity, Skin: Negative for injury, rash, and discoloration, Neuro: Negative for headache, weakness, numbness, tingling, and seizure. 15:01 Abdomen/GI: Positive for abdominal pain, nausea and vomiting, Negative for diarrhea, constipation, abdominal distension. Exam: 15:01 Constitutional: This is a well developed, well nourished patient who is awake, alert, jr8 and in no acute distress. Cardiovascular: Regular rate and rhythm with a normal S1 and S2. No gallops, murmurs, or rubs. Normal PMI, no JVD. No pulse deficits. Respiratory: Lungs have equal breath sounds bilaterally, clear to auscultation and percussion. No rales, rhonchi or wheezes noted. No increased work of breathing, no retractions or nasal flaring. Back: No spinal tenderness. No costovertebral tenderness. Full range of motion. Skin: Warm, dry with normal turgor. Normal color with no rashes, no lesions, and no evidence of cellulitis. MS/ Extremity: Pulses equal, no cyanosis. Neurovascular intact. Full, normal range of motion. Neuro: Awake and alert, GCS 15, oriented to person, place, time, and situation. Motor strength 5/5 in all extremities. Sensory grossly intact. 15:01 Abdomen/GI: Inspection: obese Bowel sounds: active, all quadrants, Palpation: soft, in all quadrants, moderate abdominal tenderness, in the abdomen diffusely, rebound tenderness, is not appreciated, voluntary guarding, is not appreciated, involuntary guarding, is not appreciated, no appreciated organomegaly, Indicators: McBurney's point is not tender, Dill's sign is negative, Rovsing's sign is negative, Liver: tenderness, is not appreciated. Vital Signs: 10:34 BP 168 / 103; Pulse 98; Resp 17; Temp 98.5; Pulse Ox 99% ; bp 10:35 Weight 81.65 kg; Height 5 ft. 0 in. (152.40 cm); Pain 10/10; ll1 10:50 BP 144 / 108; Pulse 88; Resp 17; Pulse Ox 98% ; bp 12:11 BP 157 / 95; Pulse 74; Resp 15; Pulse Ox 98% ; jl7 13:05 BP 148 / 76; Pulse 80; Resp 18; Pulse Ox 100% on R/A; ld1 10:35 Body Mass Index 35.15 (81.65 kg, 152.40 cm) ll1 MDM: 10:38 Patient medically screened. jr8 14:20 Differential diagnosis: bowel obstruction, diverticulitis, Endometriosis, gastritis, jr8 Irritable bowel syndrome, Mesenteric ischemia or infarction, non-specific abd pain, Peritonitis, Pyelonephritis, Ureterolithiasis, myositis, muscle strain, radicular pain. Data reviewed: vital signs, nurses notes, old medical records, lab test result(s), radiologic studies, CT scan, ultrasound. Data interpreted: Pulse oximetry: on room air is 100 %. Interpretation: normal. Counseling: I had a detailed discussion with the patient and/or guardian regarding: the historical points, exam findings, and any diagnostic results supporting the discharge/admit diagnosis, lab results, radiology results, the need for outpatient follow up, a family practitioner, a glazier stained glass, to return to the emergency department if symptoms worsen or persist or if there are any questions or concerns that arise at home. Special discussion: Based on the patient's Hx, exam, and Dx evaluation, there is no indication for emergent surgery or inpatient Tx. It is understood by the patient/guardian that if the Sx's persist or worsen they need to return immediately for re-evaluation. 15:01 ED course: Reviewed old records which showed mild bilateral hydro. Not seen on CT or US jr8 today. Labs remain stable. No elevation in CK or Lactate to suggest myositis or mesenteric ischemia. Repeat of the CT and US does not reveal anything new which would contribute to patients pain. Recommended f/u with GI at this time. Close return precautions given . 10/23 10:38 Order name: Basic Metabolic Panel [facility] 10/23 10:38 Order name: CBC with Diff 10/23 10:38 Order name: Hepatic Function 10/23 10:38 Order name: Lipase [facility] 10/23 11:05 Order name: CBC with Automated Diff; Complete Time: 11:50 EDOR 10/23 11:15 Order name: Basic Metabolic Panel; Complete Time: 11:50 EDOR 10/23 10:54 Order name: US Rp Exam Complete 10/23 11:15 Order name: Liver (Hepatic) Function; Complete Time: 11:50 EDMS 10/23 11:15 Order name: Lipase; Complete Time: 11:50 EDOR 10/23 12:05 Order name: US; Complete Time: 12:06 EDOR 10/23 13:14 Order name: CK 10/23 13:14 Order name: Lactate [facility] 10/23 14:08 Order name: Lactate; Complete Time: 14:20 EDMS 10/23 14:09 Order name: Creatine Phosphokinase; Complete Time: 14:20 [facility] 10/23 10:38 Order name: IV Saline Lock; Complete Time: 10:50 [facility] 10/23 10:38 Order name: Labs collected and sent; Complete Time: 10:50 [facility] 10/23 12:08 Order name: CT Abd/Pelvis - Without Contrast [facility] 10/23 12:27 Order name: CT; Complete Time: 12:32 [facility] 10/23 13:05 Order name: Bladder Scanner; Complete Time: 13:29 [facility] Administered Medications: 10:57 Drug: morphine 4 mg Route: IVP; Site: right forearm; bp 12:30 Follow up: Response: No adverse reaction iw 10:57 Drug: Zofran (Ondansetron) 4 mg Route: IVP; Site: right forearm; bp 12:00 Follow up: Response: No adverse reaction iw 12:12 Drug: TORadol - (ketorolac) 15 mg Route: IVP; Site: right antecubital; ld1 12:40 Follow up: Response: No adverse reaction iw Disposition: 15:24 Co-signature as Attending Physician, Tanner Steel MD I agree with the assessment and kdr plan of care. Disposition: 10/23/20 14:22 Discharged to Home. Impression: Generalized abdominal pain. - Condition is Stable. - Discharge Instructions: Abdominal Pain, Adult. - Prescriptions for Bentyl 20 mg Oral Tablet - take 1 tablet by ORAL route every 6 hours As needed; 20 tablet. Zofran 4 mg Oral Tablet - take 1 tablet by ORAL route every 12 hours As needed; 20 tablet. - Medication Reconciliation Form, Thank You Letter, Antibiotic Education, Prescription Opioid Use, Family Work Release form. - Follow up: Devon Ford MD; When: 1 week; Reason: Recheck today's complaints, Continuance of care, Re-evaluation by your physician. - Problem is new. - Symptoms have improved. Signatures: Dispatcher [employer] [facility] Tanner Steel MD MD kdr Shahida Meeks RN RN iw Devin Torres PA PA jr8 Tyler Howell RN RN bp Dain Monique RN RN ll1 Julia Coronado RN RN ld1 Corrections: (The following items were deleted from the chart) 14:35 14:22 10/23/2020 14:22 Discharged to Home. Impression: Generalized abdominal pain. iw Condition is Stable. Forms are Medication Reconciliation Form, Thank You Letter, Antibiotic Education, Prescription Opioid Use. Follow up: Devon Ford; When: 1 week; Reason: Recheck today's complaints, Continuance of care, Re-evaluation by your physician. Problem is new. Symptoms have improved. jr8
[2020-10-23 14:49] VITALS: TEMP 98.5
[2020-10-23 14:54] VITALS: BP 148/76; O2SAT 100
== END 2020-10-23 14:35 | disposition home or self-care (01) ==
LOC: ER 10:27
DX: R10.84 Generalized abdominal pain (principal); I10 Essential (primary) hypertension
CPT/HCPCS: 36415; 74176; 76770; 80048; 80076; 82550; 83605; 83690; 85025; 99284; J2405

== ENCOUNTER 2020-12-30 17:38 | Emergency (ER) | payer SELFPAY ==
--- NOTE | 2020-12-30 18:42 | RAD REPORT ---
EXAM DESCRIPTION: Jack Single View12/30/2020 6:33 pm CLINICAL HISTORY: Chest pain COMPARISON: 2019 FINDINGS: Mild bilateral pulmonary opacities. The heart is normal size IMPRESSION: Mild bilateral pulmonary opacities probably mild pneumonia
[2020-12-30 20:56] LABS: Basophils % 0.6 % (0-1.3); Hematocrit 34.1 % (36.0-45.0); Lymphocytes % 31.6 % (15.3-44.8); MPV 9.2 fL (7.6-11.3); RBC Red Blood Cell Count 3.85 M/uL (3.86-4.86)
[2020-12-30 21:00] LABS: Urine Blood Negative (Negative); Urine Glucose Negative (Negative); Urine Protein Negative (Negative); Urine Specific Gravity <=1.005 (1.005-1.030)
[2020-12-30] MEDS ORDERED: METHYLPREDNISOLONE 125 MG INJ ONE (21:04)
[2020-12-30] MEDS ORDERED: NA CHLORIDE 0.9% 1,000 ML ONE (21:04)
[2020-12-30 21:05] LABS: Protime INR 1.11
[2020-12-30] MEDS ORDERED: ALBUTEROL INHALER 60 PUFF/8 GM IH ONE (21:05)
[2020-12-30 21:23] LABS: ALT/SGPT 45 U/L (12-78); AST/SGOT 39 U/L (15-37); Albumin 3.6 g/dL (3.4-5.0); Alkaline Phosphatase 115 U/L (45-117); BUN Blood Urea Nitrogen 9 mg/dL (7-18); Bicarbonate 24 mmol/L (21-32); Bilirubin Direct 0.1 mg/dL (0-0.2); Bilirubin Total 0.2 mg/dL (0.2-1.0); Glucose Level 104 mg/dL (74-106); Magnesium 1.9 mg/dL (1.8-2.4); NT PRO-BNP 6 pg/mL (<125); Potassium 3.4 mmol/L (3.5-5.1); Protein, Total 7.7 g/dL (6.4-8.2); Sodium Level 139 mmol/L (136-145); Troponin (Emerg Dept Use Only) < 0.02 ng/mL (0.0-0.045)
[2020-12-31] MEDS ORDERED: NA CHLORIDE 0.9% 250 ML ONE (00:40)
[2020-12-31] MEDS ORDERED: CASIRIVIMAB/IMDEVIMAB 10 ML VIAL ONE (00:41)
[2020-12-31] MEDS ORDERED: KETOROLAC 30 MG/ML INJ ONE (01:50)
[2020-12-31] MEDS ORDERED: ACETAMINOPHEN 500 MG TAB ONE (01:50)
[2020-12-31] MEDS ORDERED: DIPHENHYDRAMINE 50 MG/ML VIAL ONE (01:53)
[2020-12-31] MEDS ORDERED: NA CHLORIDE 0.9% 50 ML ONE (03:19)
--- NOTE | 2020-12-31 04:03 | EDPHYS ---
Physician Documentation [facility] Name: Venessa Almazan Age: 40 yrs Sex: Female : 1980 Arrival Date: 12/30/2020 Time: 17:43 Bed 20 Private MD: ED Physician Sergio Nichols HPI: 12/30 20:10 This 40 yrs old Female presents to ER via Ambulatory with complaints of mh7 COVID+, Breathing Difficulty. 20:34 The patient or guardian reports cough, that is intermittent, described as moderate, mh7 with no sputum, difficulty breathing, flu symptoms, myalgias. Onset: The symptoms/episode began/occurred 8 day(s) ago. Severity of symptoms: At their worst the symptoms were moderate, 5 day(s) ago, in the emergency department the symptoms are unchanged. Modifying factors: The symptoms are alleviated by nothing, the symptoms are aggravated by nothing. Associated signs and symptoms: Pertinent positives: chest pain, with cough, with breathing, rhinorrhea, Pertinent negatives: diarrhea, ear ache, fever, nausea, sore throat, vomiting. Patient states that she tested positive for Covid 5 days ago.. 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 - Social history:: Smoking status: Patient denies any tobacco usage or history of. ROS: 20:10 Constitutional: Negative for fever, chills, and weight loss, Eyes: Negative for injury, mh7 pain, redness, and discharge, ENT: Negative for injury, pain, and discharge, Neck: Negative for injury, pain, and swelling, Abdomen/GI: Negative for abdominal pain, nausea, vomiting, diarrhea, and constipation, Back: Negative for injury and pain, : Negative for injury, bleeding, discharge, and swelling, MS/Extremity: Negative for injury and deformity, Skin: Negative for injury, rash, and discoloration, Neuro: Negative for headache, weakness, numbness, tingling, and seizure, Psych: Negative for depression, anxiety, suicide ideation, homicidal ideation, and hallucinations, Allergy/Immunology: Negative for hives, rash, and allergies, Endocrine: Negative for neck swelling, polydipsia, polyuria, polyphagia, and marked weight changes, Hematologic/Lymphatic: Negative for swollen nodes, abnormal bleeding, and unusual bruising. Exam: 20:10 Head/Face: Normocephalic, atraumatic. Eyes: Pupils equal round and reactive to light, mh7 extra-ocular motions intact. Lids and lashes normal. Conjunctiva and sclera are non-icteric and not injected. Cornea within normal limits. Periorbital areas with no swelling, redness, or edema. Neck: Trachea midline, no thyromegaly or masses palpated, and no cervical lymphadenopathy. Supple, full range of motion without nuchal rigidity, or vertebral point tenderness. No Meningismus. Chest/axilla: Normal chest wall appearance and motion. Nontender with no deformity. No lesions are appreciated. 20:10 Abdomen/GI: Soft, non-tender, with normal bowel sounds. No distension or tympany. No guarding or rebound. No evidence of tenderness throughout. Back: No spinal tenderness. No costovertebral tenderness. Full range of motion. Skin: Warm, dry with normal turgor. Normal color with no rashes, no lesions, and no evidence of cellulitis. MS/ Extremity: Pulses equal, no cyanosis. Neurovascular intact. Full, normal range of motion. Neuro: Awake and alert, GCS 15, oriented to person, place, time, and situation. Cranial nerves II-XII grossly intact. Motor strength 5/5 in all extremities. Sensory grossly intact. Cerebellar exam normal. Normal gait. Psych: Awake, alert, with orientation to person, place and time. Behavior, mood, and affect are within normal limits. 20:10 Constitutional: The patient appears in no acute distress, alert, awake, uncomfortable. 20:10 Cardiovascular: Rate: tachycardic, Rhythm: regular, Pulses: no pulse deficits are appreciated, Heart sounds: normal, normal S1and S2, Edema: is not appreciated, JVD: is not appreciated. 20:10 Respiratory: the patient does not display signs of respiratory distress, Respirations: prolonged exhalation, that is mild, tachypnea, that is mild, Breath sounds: rhonchi, that are mild, are heard diffusely, Respiratory rate: 24 Vital Signs: 18:07 Pulse 106; Resp 28; Pulse Ox 98% ; Weight 85.73 kg; Pain 10/10; ss 18:09 BP 125 / 89; Temp 99.6(O); ss 19:54 BP 140 / 85; Pulse 114; Resp 24; Temp 99.3; Pulse Ox 97% on R/A; Pain 9/10; bs2 08 01:00 BP 126 / 9; Pulse 97; Resp 28; Pulse Ox 94% ; bs2 01:30 BP 137 / 88; Pulse 96; Resp 31; Pulse Ox 92% on R/A; bs2 02:00 BP 121 / 80; Pulse 91; Resp 28; Pulse Ox 93% ; bs2 02:30 BP 116 / 78; Pulse 94; Resp 28; Pulse Ox 93% ; bs2 03:00 BP 116 / 80; Pulse 82; Resp 25; Pulse Ox 92% ; bs2 04:00 BP 124 / 84 LA Sitting (auto/lg); Pulse 80; Resp 24; Temp 99.1(O); Pulse Ox 93% ; Pain bs2 3/10; MDM: 04:01 Differential Diagnosis: Bronchitis Influenza Upper Respiratory Infection Viral Syndrome 7 Pneumonia. Data reviewed: vital signs, nurses notes, lab test result(s), cardiac enzymes, CBC, electrolytes, EKG, radiologic studies, CT scan, plain films. Data interpreted: Pulse oximetry: on room air is 97 %. Interpretation: normal. Counseling: I had a detailed discussion with the patient and/or guardian regarding: the historical points, exam findings, and any diagnostic results supporting the discharge/admit diagnosis, the presence of at least one elevated blood pressure reading (>120/80) during this emergency department visit, lab results, radiology results, the need for outpatient follow up, to return to the emergency department if symptoms worsen or persist or if there are any questions or concerns that arise at home. Response to treatment: the patient's symptoms have resolved after treatment, the patient's blood pressure is in an acceptable range, mental status has returned to baseline, the patient no longer shows bradycardia, the patient is not short of breath, the patient is not tachycardic, the patient's pain is gone, the patient's temperature has normalized. 04:03 Patient medically screened. [facility] 12/30 20:22 Order name: Basic Metabolic Panel; Complete Time: 21:26 [facility] 12/30 20:22 Order name: CBC with Diff; Complete Time: 21:26 [facility] 12/30 20:22 Order name: LFT's; Complete Time: 21:26 [facility] 12/30 20:22 Order name: Magnesium; Complete Time: 21: [facility] 12/30 20:22 Order name: NT PRO-BNP; Complete Time: 21:26 [facility] 12/30 20:22 Order name: PT-INR; Complete Time: 22:32 [facility] 12/30 18:11 Order name: Chest Single View XRAY; Complete Time: 20:03 ss 12/30 20:22 Order name: Troponin (emerg Dept Use Only); Complete Time: 21: [facility] 12/30 20:22 Order name: Lactate; Complete Time: : [facility] 12/30 20:22 Order name: Procalcitonin; Complete Time: :47 [facility] 12/30 21:00 Order name: Urine Dipstick-Ancillary; Complete Time: 21:26 EDMS 12/30 22:25 Order name: D-Dimer; Complete Time: 22:32 EDMS 12/30 22:34 Order name: CT Chest For PE Angio 12/30 20:22 Order name: EKG; Complete Time: 20:23 [facility] 12/30 20:22 Order name: Cardiac monitoring; Complete Time: 20:46 [facility] 12/30 20:22 Order name: EKG - Nurse/Tech; Complete Time: 20:46 [facility] 12/30 20:22 Order name: IV Saline Lock; Complete Time: 20:46 [facility] 12/30 20:22 Order name: Labs collected and sent; Complete Time: 20:46 [facility] 12/30 20:22 Order name: O2 Per Protocol; Complete Time: 20:46 12/30 20:22 Order name: O2 Sat Monitoring; Complete Time: 20:46 [facility] 12/30 20:22 Order name: Urine Dipstick-Ancillary (obtain specimen); Complete Time: 21:05 [facility] 12/30 20:22 Order name: Urine Test (obtain specimen); Complete Time: 21:05 [facility] Administered Medications: 12/30 20:45 Drug: SOLU-Medrol (methylPrednisoLONE) 80 mg Route: IVP; Site: right antecubital; [facility] 12/31 02:05 Follow up: Response: No adverse reaction [facility] 12/30 20:46 Drug: NS 0.9% 1000 ml Route: IV; Rate: 1000 ml; Site: right antecubital; bs2 12/31 02:06 Follow up: IV Status: Completed infusion bs2 12/30 21:05 Drug: Albuterol HFA Inhaler 2 puffs Route: Inhalation; bs2 12/31 04:09 Follow up: Response: No adverse reaction bs2 01:30 Drug: Tylenol 1000 mg Route: PO; bs2 02:06 Follow up: Response: No adverse reaction bs2 01:30 Drug: Benadryl (diphenhydrAMINE) 25 mg Route: IVP; Site: right antecubital; bs2 02:07 Follow up: Response: No adverse reaction bs2 01:32 Drug: Ketorolac 30 mg Route: IVP; Site: right antecubital; bs2 02:07 Follow up: Response: No adverse reaction bs2 01:37 Drug: REGEN-COV Dose Pack 120 mg/mL-120 mg/mL (EUA) 1 application Route: IV; Rate: 120 bs2 mg/hr; Site: right antecubital; 02:58 Follow up: IV Status: Completed infusion; IV Intake: 250ml bs2 Disposition Summary: 12/31/20 04:03 Discharge Ordered Location: Home [facility] Problem: an ongoing problem [facility] Symptoms: have improved [facility] Condition: Stable [facility] Diagnosis - COVID Pneumonia [facility] Followup: [facility] - With: Private Physician - When: 1 - 2 days - Reason: Worsening of condition, Recheck today's complaints, Continuance of care, Re-evaluation by your physician Followup: [facility] - With: Simon Clark MD - When: 1 - 2 days - Reason: Worsening of condition, Recheck today's complaints Discharge Instructions: - Discharge Summary Sheet [facility] - Viral Respiratory Infection, [id number] 7 - COVID-19 [facility] Forms: - Medication Reconciliation Form [facility] - Thank You Letter [facility] - Antibiotic Education [facility] - Prescription Opioid Use [facility] Prescriptions: - albuterol sulfate 90 mcg/actuation Inhalation HFA aerosol inhaler - inhale 2 puff by INHALATION route every 6 hours As needed; 1 Inhaler; Refills: [facility] 0, Product Selection Permitted - Tessalon Perles 100 mg Oral Capsule - take 1 capsule by ORAL route every 8 hours As needed; 15 capsule; Refills: 0, mh7 Product Selection Permitted - Zithromax Z-Wyatt 250 mg Oral Tablet - take 1 tablet by ORAL route as directed for 5 days Day 1 - take two (2) tablets mh7 one time. Day 2, 3, 4 , 5 take one (1) tablet once daily.; 6 tablet; Refills: 0, Product Selection Permitted - Prednisone 20 mg Oral Tablet - take 2 tablets by ORAL route once daily for 5 days; 10 tablet; Refills: 0, mh7 Product Selection Permitted Signatures: Dispatcher [employer] EDMS Lexy Doll RN RN ss Sergio Nichols MD MD 7 Georgiana Lopez RN RN bs2 Corrections: (The following items were deleted from the chart) 12/30 22:25 21:26 D-DIMER+COAG.LAB.ANA ordered. EDIA EDMS
--- NOTE | 2020-12-31 04:03 | ER ---
Nurse's Notes [facility] Name: Venessa Almazan Age: 40 yrs Sex: Female : 1980 Arrival Date: 12/30/2020 Time: 17:43 Bed 20 Private MD: Diagnosis: COVID Pneumonia Presentation: 12/30 18:07 Chief complaint: Patient states: Diagnosed with COVID 9 days ago. Pt c/o shortness of ss breath and chest discomfort that won't go away. Coronavirus screen: Client presents with at least one sign or symptom that may indicate coronavirus-19. Ebola Screen: Patient denies exposure to infectious person. Patient denies travel to an Ebola-affected area in the 21 days before illness onset. Initial Sepsis Screen: Does the patient meet any 2 criteria? No. Patient's initial sepsis screen is negative. Does the patient have a suspected source of infection? No. Patient's initial sepsis screen is negative. Risk Assessment: Do you want to hurt yourself or someone else? Patient reports no desire to harm self or others. Onset of symptoms was December 21, 2020. 18:07 Method Of Arrival: Ambulatory ss 18:07 Acuity: ADAN 3 ss Triage Assessment: 20:00 General: Behavior is calm, cooperative, appropriate for age. Respiratory: Reports bs2 shortness of breath on exertion pain with cough Onset: The symptoms/episode began/occurred gradually, the patient has mild shortness of breath. 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 - Social history:: Smoking status: Patient denies any tobacco usage or history of. Screenin:00 Abuse screen: Denies threats or abuse. Denies injuries from another. Nutritional bs2 screening: No deficits noted. Tuberculosis screening: No symptoms or risk factors identified. Fall Risk None identified. Assessment: 20:00 General: Appears in no apparent distress. uncomfortable, obese, well developed, well bs2 nourished. Pain: Complains of pain in back and chest. Cardiovascular: No deficits noted. Rhythm is sinus tachycardia. Respiratory: Airway is patent Respiratory effort is even, unlabored, Breath sounds are clear bilaterally. GI: No signs and/or symptoms were reported involving the gastrointestinal system. : No signs and/or symptoms were reported regarding the genitourinary system. EENT: No signs and/or symptoms were reported regarding the EENT system. Derm: No signs and/or symptoms reported regarding the dermatologic system. Musculoskeletal: No signs and/or symptoms reported regarding the musculoskeletal system. Vital Signs: 18:07 Pulse 106; Resp 28; Pulse Ox 98% ; Weight 85.73 kg; Pain 10/10; ss 18:09 BP 125 / 89; Temp 99.6(O); ss 19:54 BP 140 / 85; Pulse 114; Resp 24; Temp 99.3; Pulse Ox 97% on R/A; Pain 9/10; bs2 08 01:00 BP 126 / 9; Pulse 97; Resp 28; Pulse Ox 94% ; bs2 01:30 BP 137 / 88; Pulse 96; Resp 31; Pulse Ox 92% on R/A; bs2 02:00 BP 121 / 80; Pulse 91; Resp 28; Pulse Ox 93% ; bs2 02:30 BP 116 / 78; Pulse 94; Resp 28; Pulse Ox 93% ; bs2 03:00 BP 116 / 80; Pulse 82; Resp 25; Pulse Ox 92% ; bs2 04:00 BP 124 / 84 LA Sitting (auto/lg); Pulse 80; Resp 24; Temp 99.1(O); Pulse Ox 93% ; Pain bs2 3/10; ED Course: 12/30 17:43 Patient arrived in ED. mr 18:09 Triage completed. ss 18:09 Arm band placed on right wrist. ss 18:33 Chest Single View XRAY In Process Unspecified. EDMS 19:44 Georgiana Lopez, RN is Primary Nurse. bs2 19:45 Sergio Nichols MD is Attending Physician. mh7 20:00 Patient has correct armband on for positive identification. Placed in gown. Bed in low bs2 position. Call light in reach. Side rails up X 1. engine monitor on. Pulse ox on. NIBP on. Door closed. Lights dimmed. Warm blanket given. 20:30 Inserted saline lock: 20 gauge in right antecubital area, using aseptic technique. bs2 20:46 Lactate Sent. bs2 20:46 Procalcitonin Sent. bs2 20:46 Basic Metabolic Panel Sent. bs2 20:46 CBC with Diff Sent. bs2 20:46 LFT's Sent. bs2 20:46 Magnesium Sent. bs2 20:46 NT PRO-BNP Sent. bs2 20:46 PT-INR Sent. bs2 20:47 Troponin (emerg Dept Use Only) Sent. bs2 23:30 CT Chest For PE Angio In Process Unspecified. EDMS 12/31 02:08 No provider procedures requiring assistance completed. bs2 04:02 Simon Clark MD is Referral Physician. 7 04:15 IV discontinued, intact, bleeding controlled, No redness/swelling at site. bs2 Administered Medications: 12/30 20:45 Drug: SOLU-Medrol (methylPrednisoLONE) 80 mg Route: IVP; Site: right antecubital; bs2 12/31 02:05 Follow up: Response: No adverse reaction bs2 12/30 20:46 Drug: NS 0.9% 1000 ml Route: IV; Rate: 1000 ml; Site: right antecubital; bs2 12/31 02:06 Follow up: IV Status: Completed infusion bs2 12/30 21:05 Drug: Albuterol HFA Inhaler 2 puffs Route: Inhalation; bs2 12/31 04:09 Follow up: Response: No adverse reaction bs2 01:30 Drug: Tylenol 1000 mg Route: PO; bs2 02:06 Follow up: Response: No adverse reaction bs2 01:30 Drug: Benadryl (diphenhydrAMINE) 25 mg Route: IVP; Site: right antecubital; bs2 02:07 Follow up: Response: No adverse reaction bs2 01:32 Drug: Ketorolac 30 mg Route: IVP; Site: right antecubital; bs2 02:07 Follow up: Response: No adverse reaction bs2 01:37 Drug: REGEN-COV Dose Pack 120 mg/mL-120 mg/mL (EUA) 1 application Route: IV; Rate: 120 bs2 mg/hr; Site: right antecubital; 02:58 Follow up: IV Status: Completed infusion; IV Intake: 250ml bs2 Intake: 02:58 IV: 250ml; Total: 250ml. bs2 Outcome: 04:03 Discharge ordered by . 7 04:09 Patient left the ED. bs2 04:15 Discharged to home ambulatory, with family. bs2 04:15 Condition: improved 04:15 Discharge instructions given to patient, Instructed on discharge instructions, follow up and referral plans. Signatures: Dispatcher [employer] ADOLFO FarmerCeleste mr DollLexy, RN RN ss Sergio Nichols MD MD 7 Georgiana Lopez RN RN bs2
[2020-12-31 04:18] VITALS: BP 140/85; TEMP 99.3; O2SAT 97
--- NOTE | 2020-12-31 12:19 | RAD REPORT ---
EXAM DESCRIPTION: CT - Chest For Pe Angio - 12/31/2020 6:50 am CLINICAL HISTORY: SOB. COMPARISON: None. TECHNIQUE: CTA of the chest was performed following intravenous administration of iodinated contrast . Axial soft tissue and lung window, and coronal and sagittal soft tissue window reconstructions were created and sent to PACS. 3D postprocessing was performed on an independent workstation, with images sent to PACS for subsequen t review. This exam was performed according to our departmental dose-optimization program, which includes autom ated exposure control, adjustment of the mA and/or kV according to patient size and/or use of iterati ve reconstruction technique. FINDINGS: Vascular: Suboptimal evaluation of the segmental and subsegmental pulmonary arteries due t o streak artifact. No CT evidence of acute pulmonary thromboembolism through the lobar level. No evid ence of aortic aneurysm or dissection. Lungs and pleura: Mild motion degradation. Small groundglass opacities with associated interstitial t hickening throughout the lungs, with a slight peripheral predominance. No pleural effusion. No pneumo thorax. Mediastinum and neck: No mediastinal lymphadenopathy by CT size criteria. Unremarkable appearance of the thyroid gland. Cardiac: No cardiomegaly or pericardial effusion. Abdomen: No significant upper abdominal abnormality identified. Musculoskeletal: No concerning osseous abnormality. IMPRESSION: 1. No CTA evidence of acute pulmonary thromboembolism through the lobar level. 2. Small multifocal groundglass opacities. Correlate for infectious/inflammatory etiology. Electronically signed by: Sangeetha Wilhelm MD 12/30/2020 11:40 PM CDT Due to temporary technical issues with the PACS/Fluency reporting system, reports are being signed by the in house radiologist without review as a courtesy to ensure prompt reporting. The interpreting r adiologist is fully responsible for the content of the report.
== END 2020-12-31 04:09 | disposition home or self-care (01) ==
LOC: ER 17:38
DX: U07.1 COVID-19 (principal); J12.82 Pneumonia due to coronavirus disease 2019; I10 Essential (primary) hypertension
CPT/HCPCS: 36415; 71045; 71275; 80048; 80076; 81003; 83605; 83735; 83880; 84145; 84484; 85025; 85379; 85610; 93005; 96361; 96365; 96375; 99285; J1200; J2930; J7030; J7050; Q9967

== ENCOUNTER 2021-10-31 15:39 | Emergency (ER) | payer SELFPAY ==
--- NOTE | 2021-10-31 17:11 | RAD REPORT ---
EXAM DESCRIPTION: RAD - Foot Right 3 View - 10/31/2021 4:12 pm CLINICAL HISTORY: PAIN COMPARISON: No comparisons FINDINGS: Hardware is present adjacent to the lateral fibula. There is a small bony irregularity see n involving the base of the second metatarsal suspicious for a fracture.
--- NOTE | 2021-10-31 17:12 | RAD REPORT ---
EXAM DESCRIPTION: RAD - Ankle Right 3 View - 10/31/2021 4:12 pm CLINICAL HISTORY: PAIN COMPARISON: No comparisons FINDINGS: Prominent soft tissue swelling is seen adjacent to the lateral malleolus. Hardware is pres ent involving the distal fibula without complication evident. No acute fracture or dislocation seen.
--- NOTE | 2021-10-31 17:19 | EDPHYS ---
Physician Documentation [facility] Name: eVnessa Almazan Age: 40 yrs Sex: Female : 1980 Arrival Date: 10/31/2021 Time: 15:47 Bed 23 Private MD: ED Physician Ang Denise HPI: 10/31 18:46 This 40 yrs old Female presents to ER via Wheelchair with complaints of Foot kb Injury. 18:46 The patient presents with an injury, pain, that is acute, tenderness. The complaints kb affect the right foot. Context: The problem was sustained at home, resulted from a heavy object falling, the patient can partially bear weight, the patient is able to ambulate. Onset: The symptoms/episode began/occurred yesterday. Modifying factors: The symptoms are alleviated by nothing, the symptoms are aggravated by weight bearing, movement. Associated signs and symptoms: Pertinent positives: swelling, Pertinent negatives: calf tenderness, fever, nausea, numbness, rash, tingling, vomiting, warmth, weakness. Severity of symptoms: At their worst the symptoms were moderate, in the emergency department the symptoms are unchanged. The patient has not experienced similar symptoms in the past. The patient has not recently seen a physician. 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 - Social history:: Smoking status: Patient denies any tobacco usage or history of. ROS: 18:26 Constitutional: Negative for fever, chills, and weight loss. kb 18:26 MS/extremity: Positive for pain, of the right foot. 18:26 All other systems are negative. Exam: 18:45 Constitutional: This is a well developed, well nourished patient who is awake, alert, kb and in no acute distress. Head/Face: Normocephalic, atraumatic. ENT: Moist Mucous membranes Respiratory: Respirations even and unlabored. No increased work of breathing. Talking in full sentences Skin: Warm, dry with normal turgor. Normal color. Neuro: Awake and alert, GCS 15, oriented to person, place, time, and situation. Moves all extremities. Normal gait. Psych: Awake, alert, with orientation to person, place and time. Behavior, mood, and affect are within normal limits. 18:45 Musculoskeletal/extremity: Extremities: grossly normal except: noted in the right foot: pain, swelling, tenderness, ROM: limited active range of motion due to pain, Circulation is intact in all extremities. Sensation intact. Weight bearing: can bear weight with assistance only. Vital Signs: 15:55 BP 156 / 98; Pulse 74; Resp 17; Temp 97.6; Pulse Ox 100% ; Weight 86.18 kg; Height 5 ap3 ft. (152.40 cm); Pain 10/10; 17:09 BP 148 / 76; Pulse 76; Resp 18; Pulse Ox 100% on R/A; bh1 15:55 Body Mass Index 37.11 (86.18 kg, 152.40 cm) ap3 MDM: 16:08 Patient medically screened. kb 18:25 Data reviewed: vital signs, nurses notes. Data interpreted: Pulse oximetry: on room air kb is 100 %. Interpretation: normal. Counseling: I had a detailed discussion with the patient and/or guardian regarding: the historical points, exam findings, and any diagnostic results supporting the discharge/admit diagnosis, radiology results, the need for outpatient follow up, a orthopedic surgeon, to return to the emergency department if symptoms worsen or persist or if there are any questions or concerns that arise at home. 10/31 15:56 Order name: Foot Right 3 View XRAY; Complete Time: 17:13 kb 10/31 15:56 Order name: Ankle Right 3 View XRAY; Complete Time: 17:13 kb 10/31 17:17 Order name: Post-op shoe; Complete Time: 17:29 kb Administered Medications: No medications were administered Disposition Summary: 10/31/21 17:18 Discharge Ordered Location: Home kb Condition: Stable kb Diagnosis - Displaced fracture of second metatarsal bone, right foot, initial encounter for kb closed fracture Followup: kb - With: Emergency Department - When: As needed - Reason: Worsening of condition Followup: kb - With: Private Physician - When: 2 - 3 days - Reason: Recheck today's complaints, Continuance of care, Re-evaluation by your physician Discharge Instructions: - Discharge Summary Sheet kb - Metatarsal Fracture kb Forms: - Medication Reconciliation Form kb - Thank You Letter kb - Antibiotic Education kb - Prescription Opioid Use kb - Work release form bh1 Prescriptions: - Diclofenac Sodium 75 mg Oral tablet,delayed release (DR/EC) - take 1 tablet by ORAL route 2 times per day As needed; 30 tablet; Refills: 0, kb Product Selection Permitted Signatures: Dispatcher [employer] Joanna Parekh, Billie Cook, RN RN ap3
--- NOTE | 2021-10-31 17:19 | ER ---
Nurse's Notes [facility] Name: Venessa Almazan Age: 40 yrs Sex: Female : 1980 Arrival Date: 10/31/2021 Time: 15:47 Bed 23 Private MD: Diagnosis: Displaced fracture of second metatarsal bone, right foot, initial encounter for closed fracture Presentation: 10/31 15:55 Chief complaint: Patient states: she was doing laundry yesterday when one of her ap3 husbands tools fell on her right foot. patient complains of pain and swelling to her right foot as a whole. Coronavirus screen: At this time, the client does not indicate any symptoms associated with coronavirus-19. Ebola Screen: No symptoms or risks identified at this time. Initial Sepsis Screen: Does the patient meet any 2 criteria? No. Patient's initial sepsis screen is negative. Does the patient have a suspected source of infection? No. Patient's initial sepsis screen is negative. Risk Assessment: Do you want to hurt yourself or someone else? Patient reports no desire to harm self or others. Onset of symptoms was October 30, 2021. 15:55 Method Of Arrival: Wheelchair ap3 15:55 Acuity: ADAN 4 ap3 Triage Assessment: 15:57 General: Appears in no apparent distress. uncomfortable, Behavior is calm, cooperative, ap3 appropriate for age. Pain: Complains of pain in right foot Pain currently is 10 out of 10 on a pain scale. Pain began suddenly, 1 day ago. Neuro: Level of Consciousness is awake, alert, obeys commands, Oriented to person, place, time, situation, Appropriate for age Speech is normal. Cardiovascular: Patient's skin is warm and dry. Respiratory: Airway is patent Respiratory effort is even, unlabored. Musculoskeletal: Swelling present in right foot. Injury Description: Crush injury sustained to right foot is was sustained 1 day ago. 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 - Social history:: Smoking status: Patient denies any tobacco usage or history of. Screenin:57 Abuse screen: Denies threats or abuse. Nutritional screening: No deficits noted. ap3 Tuberculosis screening: No symptoms or risk factors identified. 16:33 Fall Risk None identified. bh1 Assessment: 16:33 Reassessment: No changes from previously documented assessment. General: Appears in no bh1 apparent distress. Behavior is calm, cooperative, appropriate for age. Pain: Complains of pain in right foot. Cardiovascular: No deficits noted. Respiratory: No deficits noted. Vital Signs: 15:55 BP 156 / 98; Pulse 74; Resp 17; Temp 97.6; Pulse Ox 100% ; Weight 86.18 kg; Height 5 ap3 ft. (152.40 cm); Pain 10/10; 17:09 BP 148 / 76; Pulse 76; Resp 18; Pulse Ox 100% on R/A; bh1 15:55 Body Mass Index 37.11 (86.18 kg, 152.40 cm) ap3 ED Course: 15:47 Patient arrived in ED. ja2 15:51 Joanna Bernardo FNP-C [facility]. kb 15:51 Ang Denise MD is Attending Physician. kb 15:56 Triage completed. ap3 15:58 Arm band placed on right wrist. ap3 16:14 Foot Right 3 View XRAY In Process Unspecified. EDMS 16:14 Ankle Right 3 View XRAY In Process Unspecified. EDMS 16:33 Shaneka Nye, RN is Primary Nurse. bh1 16:33 No apparent distress. Resting quietly. Awaiting radiology results. Awaiting ED provider bh1 evaluation. 16:33 Patient has correct armband on for positive identification. Call light in reach. Adult bh1 w/ patient. Pulse ox on. NIBP on. 16:33 No provider procedures requiring assistance completed. Patient did not have IV access bh1 during this emergency room visit. 17:10 No apparent distress. Resting quietly. Awaiting radiology results. bh1 Administered Medications: No medications were administered Medication: 16:33 VIS not applicable for this client. bh1 Outcome: 17:18 Discharge ordered by . kb 17:35 Discharged to home ambulatory, via wheelchair. bh1 17:35 Condition: good 17:35 Discharge instructions given to patient, family, Instructed on discharge instructions, follow up and referral plans. medication usage, Demonstrated understanding of instructions, follow-up care, medications. 17:36 Patient left the ED. [facility] Signatures: Dispatcher [employer] EDJoanna Negron, Billie Cook RN RN ap3 Flor Sotelo Barbara, RN RN 1
[2021-10-31 17:55] VITALS: TEMP 97.6; O2SAT 100
[2021-10-31 18:03] VITALS: BP 148/76
== END 2021-10-31 17:36 | disposition home or self-care (01) ==
LOC: ER 15:39
DX: S92.321A Displaced fracture of second metatarsal bone, right foot, initial encounter for closed fracture (principal)
CPT/HCPCS: 99283

== ENCOUNTER 2021-11-15 19:36 | Emergency (ER) | payer SELFPAY ==
--- NOTE | 2021-11-15 21:22 | RAD REPORT ---
EXAM DESCRIPTION: RAD - Ankle Right 3 View - 11/15/2021 9:06 pm CLINICAL HISTORY: Right ankle pain FINDINGS: Sideplate and screws affix an old fibular fracture. No acute fracture or dislocation seen
--- NOTE | 2021-11-15 21:43 | RAD REPORT ---
EXAM DESCRIPTION: RAD - Foot Right 3 View - 11/15/2021 9:06 pm CLINICAL HISTORY: Right foot pain FINDINGS: Previous report from a foot x-ray October 31, 2021 describes a possible fracture base of the second metatarsal. On the current examination no fracture or dislocation seen. If clinically indicated further evaluation with CT could be obtained
[2021-11-15] MEDS ORDERED: HYDROCODONE/APAP 10/325 TAB ONE (22:05)
--- NOTE | 2021-11-15 22:37 | ER ---
Nurse's Notes [facility] Name: Venessa Almazan Age: 40 yrs Sex: Female : 1980 Arrival Date: 11/15/2021 Time: 19:38 Bed 12 Private MD: Diagnosis: Pain in right foot Presentation: 11/15 20:37 Chief complaint: Patient states: she was diagnosed with a fracture to her right foot bb October 31 but the pain seems to be getting worse. Coronavirus screen: At this time, the client does not indicate any symptoms associated with coronavirus-19. Ebola Screen: No symptoms or risks identified at this time. Initial Sepsis Screen: Does the patient meet any 2 criteria? No. Patient's initial sepsis screen is negative. Does the patient have a suspected source of infection? No. Patient's initial sepsis screen is negative. Risk Assessment: Do you want to hurt yourself or someone else? Patient reports no desire to harm self or others. Onset of symptoms was October 31, 2021. 20:37 Method Of Arrival: Ambulatory 20:37 Acuity: ADAN 4 bb Triage Assessment: 20:40 General: Appears in no apparent distress. uncomfortable, Behavior is calm, cooperative. bb Pain: Complains of pain in right foot Pain currently is 10 out of 10 on a pain scale. Neuro: Level of Consciousness is awake, alert, obeys commands, Oriented to person, place, time, situation. Cardiovascular: Capillary refill < 3 seconds Patient's skin is warm and dry. Respiratory: Respiratory effort is even, unlabored. GI: No signs and/or symptoms were reported involving the gastrointestinal system. Derm: Skin is pink, warm \T\ dry. Musculoskeletal: Reports pain in right foot. Injury Description: Crush injury sustained to right foot was sustained 2 weeks ago. 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 - Social history:: Smoking status: Patient denies any tobacco usage or history of. Screenin:35 Abuse screen: Denies threats or abuse. Denies injuries from another. Nutritional lg3 screening: No deficits noted. Tuberculosis screening: No symptoms or risk factors identified. Fall Risk None identified. Assessment: 21:35 General: Appears in no apparent distress. uncomfortable, Behavior is calm, cooperative. lg3 Pain: Complains of pain in right foot. Neuro: No deficits noted. Level of Consciousness is awake, alert, obeys commands, Oriented to person, place, time, situation. Cardiovascular: No deficits noted. Denies chest pain, shortness of breath, Capillary refill < 3 seconds Clubbing of nail beds is absent JVD is absent Patient's skin is warm and dry. Respiratory: No deficits noted. Airway is patent Trachea midline Respiratory effort is even, unlabored, Respiratory pattern is regular, symmetrical, Breath sounds are clear bilaterally. GI: No deficits noted. No signs and/or symptoms were reported involving the gastrointestinal system. Abdomen is round non-distended. : No deficits noted. No signs and/or symptoms were reported regarding the genitourinary system. EENT: No deficits noted. No signs and/or symptoms were reported regarding the EENT system. Derm: No deficits noted. No signs and/or symptoms reported regarding the dermatologic system. Skin is intact, is healthy with good turgor, Skin is dry, Skin temperature is warm. Musculoskeletal: Circulation, motion, and sensation intact. Range of motion: intact in all extremities, walking boot noted to right foot Reports pain in right foot. 23:02 Reassessment: Patient appears in no apparent distress at this time. No changes from lg3 previously documented assessment. Patient and/or family updated on plan of care and expected duration. Pain level reassessed. Patient is alert, oriented x 3, equal unlabored respirations, skin warm/dry/pink. Vital Signs: 20:37 BP 192 / 112; Pulse 91; Resp 16 S; Temp 97.9(O); Pulse Ox 100% on R/A; Weight 86.18 kg bb (R); Height 5 ft. 0 in. (152.40 cm) (R); Pain 10/10; 23:02 BP 162 / 88; Pulse 86; Resp 16; Pulse Ox 100% on R/A; lg3 20:37 Body Mass Index 37.11 (86.18 kg, 152.40 cm) bb ED Course: 19:38 Patient arrived in ED. bp1 20:35 Joanna Bernardo FNP-C is PHCP. kb 20:35 Sergio Nichols MD is Attending Physician. kb 20:40 Triage completed. bb 20:40 Arm band placed on Patient placed in waiting room, Patient notified of wait time. bb 21:08 Foot Right 3 View XRAY In Process Unspecified. EDMS 21:08 Ankle Right 3 View XRAY In Process Unspecified. EDMS 21:35 Alfreda Cortes, RN is Primary Nurse. lg3 21:35 Patient has correct armband on for positive identification. Bed in low position. Call lg3 light in reach. Side rails up X 1. Client placed on continuous cardiac and pulse oximetry monitoring. NIBP monitoring applied. Door closed. Noise minimized. Warm blanket given. Family accompanied patient. 23:03 No provider procedures requiring assistance completed. Patient did not have IV access lg3 during this emergency room visit. Administered Medications: 22:00 Drug: Follett (HYDROcodone-acetaminophen) 10 mg-325 mg 1 tabs Route: PO; lg3 22:00 Follow up: Response: No adverse reaction lg3 Medication: 23:03 VIS not applicable for this client. lg3 Outcome: 22:36 Discharge ordered by MD. kb 23:03 Discharged to home ambulatory, with significant other. lg3 23:03 Condition: stable 23:03 Discharge instructions given to patient, Instructed on discharge instructions, follow up and referral plans. Demonstrated understanding of instructions, follow-up care. 23:03 Patient left the ED. lg3 Signatures: Dispatcher [employer] EDJoanna Negron, STATISTICAL MODELER-Jass FLOWERP-Ann Rai RN RN bb Gibson, Lacie, RN RN lg3 Caroilne Beth
--- NOTE | 2021-11-15 22:37 | EDPHYS ---
Physician Documentation [facility] Name: Venessa Almazan Age: 40 yrs Sex: Female : 1980 Arrival Date: 11/15/2021 Time: 19:38 Bed 12 Private MD: ED Physician Sergio Nichols HPI: 11/16 00:16 This 40 yrs old Female presents to ER via Ambulatory with complaints of Foot kb Injury, Foot Pain. 00:16 The patient presents with pain. The complaints affect the right foot. Context: The kb problem was sustained at home, resulted from a heavy object falling, the patient can fully bear weight. Onset: The symptoms/episode began/occurred 17 day(s) ago. Modifying factors: The symptoms are alleviated by nothing, the symptoms are aggravated by weight bearing, movement. Associated signs and symptoms: The patient has no apparent associated signs or symptoms. Severity of symptoms: At their worst the symptoms were moderate, in the emergency department the symptoms are unchanged. The patient has not experienced similar symptoms in the past. The patient has been recently seen at the [facility] Emergency Department, a couple of weeks ago, for similar complaints. Pt was seen on 10/31 for foot pain after a heavy tool fell on her foot. States the pain has persisted so she came in for reevaluation. Has not followed up with orthopedist. 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 - Social history:: Smoking status: Patient denies any tobacco usage or history of. ROS: 11/16 00:15 Constitutional: Negative for fever, chills, and weight loss. kb MS/extremity: Positive for pain, tenderness, of the right ankle and anterior aspect of right ankle and right foot. All other systems are negative. Exam: 00:15 Constitutional: This is a well developed, well nourished patient who is awake, alert, kb and in no acute distress. Head/Face: Normocephalic, atraumatic. ENT: Moist Mucous membranes Respiratory: Respirations even and unlabored. No increased work of breathing. Talking in full sentences Skin: Warm, dry with normal turgor. Normal color. Neuro: Awake and alert, GCS 15, oriented to person, place, time, and situation. Moves all extremities. Normal gait. Psych: Awake, alert, with orientation to person, place and time. Behavior, mood, and affect are within normal limits. 00:15 Musculoskeletal/extremity: Extremities: grossly normal except: noted in the right ankle and right foot: pain, tenderness, ROM: intact in all extremities, Circulation is intact in all extremities. Sensation intact. Weight bearing: able to fully bear weight. Vital Signs: 11/15 20:37 BP 192 / 112; Pulse 91; Resp 16 S; Temp 97.9(O); Pulse Ox 100% on R/A; Weight 86.18 kg bb (R); Height 5 ft. 0 in. (152.40 cm) (R); Pain 10/10; 23:02 BP 162 / 88; Pulse 86; Resp 16; Pulse Ox 100% on R/A; lg3 20:37 Body Mass Index 37.11 (86.18 kg, 152.40 cm) bb MDM: 20:35 Patient medically screened. kb 22:34 Data reviewed: vital signs, nurses notes. Data interpreted: Pulse oximetry: on room air kb is 100 %. Interpretation: normal. Counseling: I had a detailed discussion with the patient and/or guardian regarding: the historical points, exam findings, and any diagnostic results supporting the discharge/admit diagnosis, radiology results, the need for outpatient follow up, a family practitioner, to return to the emergency department if symptoms worsen or persist or if there are any questions or concerns that arise at home. 11/15 20:38 Order name: Foot Right 3 View XRAY; Complete Time: 21:43 kb 11/15 20:38 Order name: Ankle Right 3 View XRAY; Complete Time: 21:43 kb Administered Medications: 22:00 Drug: Marlow (HYDROcodone-acetaminophen) 10 mg-325 mg 1 tabs Route: PO; lg3 22:00 Follow up: Response: No adverse reaction lg3 Disposition: 11/16 07:25 Co-signature as Attending Physician, Sergio Nichols MD. [email or web address] Disposition Summary: 11/15/21 22:36 Discharge Ordered Location: Home kb Condition: Stable kb Diagnosis - Pain in right foot kb Followup: kb - With: Emergency Department - When: As needed - Reason: Worsening of condition Followup: kb - With: Private Physician - When: 2 - 3 days - Reason: Recheck today's complaints, Continuance of care, Re-evaluation by your physician Discharge Instructions: - Discharge Summary Sheet kb - Musculoskeletal Pain kb Forms: - Medication Reconciliation Form kb - Thank You Letter kb - Antibiotic Education kb - Prescription Opioid Use kb - Work release form zm Signatures: Dispatcher [employer] EDJoanna Negron, NADINE-Jass MCCOY-Ann Rai, RN RN bb Alfreda Cortes RN RN lg3 Sergio Nichols MD MD [email or web address]
[2021-11-15 23:25] VITALS: TEMP 97.9; O2SAT 100
[2021-11-15 23:27] VITALS: BP 162/88
== END 2021-11-15 23:03 | disposition home or self-care (01) ==
LOC: ER 19:36
DX: M79.671 Pain in right foot (principal); I10 Essential (primary) hypertension
CPT/HCPCS: 99283

== ENCOUNTER 2022-01-11 06:13 | Emergency (ER) | payer SELFPAY ==
--- NOTE | 2022-01-11 07:33 | RAD REPORT ---
EXAM DESCRIPTION: RAD - Chest Single View - 01/11/2022 7:21 am CLINICAL HISTORY: COUGH COMPARISON: Chest Single View dated 12/30/2020; Chest Single View dated 10/12/2019; Chest Single View dated 03/17/2019; Chest Single View dated 12/20/2017 FINDINGS: Lines: None. Lungs: No evidence of edema or pneumonia. Pleural: No significant pleural effusions or pneumothorax. Cardiac: The heart size is within normal limits. Mediastinum: Within normal limits. Bones: No acute fractures. Other: None IMPRESSION: No acute cardiopulmonary disease.
[2022-01-11] MEDS ORDERED: HYDROCODONE/APAP 10/325 TAB ONE (07:51)
[2022-01-11] MEDS ORDERED: IBUPROFEN 400 MG TAB ONE (07:51)
--- NOTE | 2022-01-11 08:12 | ER ---
Nurse's Notes [facility] Name: Venessa Almazan Age: 41 yrs Sex: Female : 1980 Arrival Date: 01/11/2022 Time: 06:15 Bed 13 Private MD: Diagnosis: Acute upper respiratory infection, unspecified;Acute bronchitis, unspecified;Essential (primary) hypertension Presentation: 01/11 06:35 Chief complaint: Patient states: she has been feeling sick since Thursday with a sore bb throat, body aches, coughing, burning in chest when coughing, chills denies fever. Coronavirus screen: chills, cough unrelated to allergies, muscle pain, runny nose. Ebola Screen: No symptoms or risks identified at this time. Initial Sepsis Screen: Does the patient meet any 2 criteria? No. Patient's initial sepsis screen is negative. Does the patient have a suspected source of infection? No. Patient's initial sepsis screen is negative. Risk Assessment: Do you want to hurt yourself or someone else? Patient reports no desire to harm self or others. Onset of symptoms was January 07, 2022. 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 - Social history:: Smoking status: Patient denies any tobacco usage or history of. - Family history:: not pertinent. - Hospitalizations: : No recent hospitalization is reported. Screenin:44 Abuse screen: Denies threats or abuse. Nutritional screening: No deficits noted. ja4 Tuberculosis screening: No symptoms or risk factors identified. Fall Risk None identified. Assessment: 06:44 General: Appears uncomfortable, Behavior is cooperative, appropriate for age. Pain: ja4 Complains of pain in chest, generalized Pain currently is 10 out of 10 on a pain scale. Aggravated by coughing. Respiratory: Reports cough that is productive, pain with cough. 07:00 Reassessment: Patient and/or family updated on plan of care and expected duration. Pain jg9 level reassessed. Patient is alert, oriented x 3, equal unlabored respirations, skin warm/dry/pink. Respiratory: Airway is patent Respiratory effort is even, unlabored, Breath sounds are clear bilaterally. EENT: Throat is reddened Reports pain in right ear and left ear and chest. 08:00 Reassessment: Patient and/or family updated on plan of care and expected duration. Pain jg9 level reassessed. Patient is alert, oriented x 3, equal unlabored respirations, skin warm/dry/pink. Vital Signs: 06:35 BP 158 / 109; Pulse 84; Resp 20 S; Temp 98.7(O); Pulse Ox 99% on R/A; Weight 81.65 kg bb (R); Height 5 ft. 0 in. (152.40 cm) (R); Pain 10/10; 07:15 BP 141 / 102; Pulse 79; Resp 17 S; Pulse Ox 97% ; Pain 10/10; jg9 08:00 BP 138 / 96; Pulse 72; Resp 14 S; Pulse Ox 95% on R/A; Pain 8/10; jg9 06:35 Body Mass Index 35.15 (81.65 kg, 152.40 cm) ED Course: 06:15 Patient arrived in ED. ja 06:19 Elder Yates MD is Attending Physician. rn 06:26 Nilay Emery, KATHY is Primary Nurse. 4 06:38 Triage completed. 06:38 Arm band placed on Patient placed in an exam room, on a stretcher, on pulse oximetry. 06:44 Bed in low position. Call light in reach. ja4 06:44 Strep Sent. ja4 06:44 Flu Sent. ja4 06:44 SARS-COV-2 RT PCR (Document "Date of Onset" if Symptomatic) Sent. ja4 06:44 No provider procedures requiring assistance completed. 4 07:05 Attending Physician role handed off by Elder Yates MD [facility] 07:05 Ang Denise MD is Attending Physician. [facility] 07:23 XRAY Chest (1 view) In Process Unspecified. EDMS 08:39 Patient did not have IV access during this emergency room visit. jg9 Administered Medications: 07:50 Drug: [place]fluence (HYDROcodone-acetaminophen) 10 mg-325 mg 1 tabs {Note: RASS-0, pain 10/10 jg9 in chest.} Route: PO; 08:19 Follow up: Response: No adverse reaction; Pain is decreased jg9 07:50 Drug: Motrin (ibuprofen) 800 mg {Note: RASS-0 pain 10/10 in chest.} Route: PO; jg9 08:19 Follow up: Response: No adverse reaction; Pain is decreased jg9 08:19 Drug: Zithromax (azithromycin) 500 mg Route: PO; jg9 08:38 Follow up: Response: No adverse reaction jg9 08:19 Drug: Decadron (dexamethasone) 10 mg Route: IM; Site: left deltoid; jg9 08:38 Follow up: Response: No adverse reaction jg9 08:19 Drug: Aspirin 81 mg Route: PO; jg9 08:38 Follow up: Response: No adverse reaction jg9 Medication: 06:44 VIS not applicable for this client. ja4 Outcome: 08:11 Discharge ordered by MD. cline 08:38 Discharged to home ambulatory. jg9 08:38 Condition: improved 08:38 Discharge instructions given to patient, Instructed on discharge instructions, follow up and referral plans. Demonstrated understanding of instructions, follow-up care, Prescriptions given X 3. 08:52 Patient left the ED. jg9 Signatures: Dispatcher [employer] EDAng Donovan MD MD cha Ballard, Brenda RN RN Elder Huber MD MD rn Alexander, Jessica ja2 Gilmore, Jennifer, RN RN jg9 Nilay Emery RN RN ja4
--- NOTE | 2022-01-11 08:12 | EDPHYS ---
Physician Documentation [facility] Name: Venessa Almazan Age: 41 yrs Sex: Female : 1980 Arrival Date: 01/11/2022 Time: 06:15 Bed 13 Private MD: SHAYY Physician Ang Denise HPI: 01/11 06:42 This 41 yrs old Female presents to ER via Ambulatory with complaints of Sore rn Throat, Ear Pain, Chest Pain, Body Aches. 06:42 The patient presents with sore throat. The patient describes throat pain as raw, rn scratchy. 06:42 Onset: The symptoms/episode began/occurred 5 day(s) ago. Severity of symptoms: At their rn worst the symptoms were mild, in the emergency department the symptoms are unchanged. Modifying factors: The symptoms are alleviated by nothing, the symptoms are aggravated by nothing. Associated signs and symptoms: Pertinent positives: chills, cough, fever, flu-like symptoms, rhinorrhea, Pertinent negatives diarrhea. The patient has experienced a previous episode. The patient has not recently seen a physician. 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 - Social history:: Smoking status: Patient denies any tobacco usage or history of. - Family history:: not pertinent. - Hospitalizations: : No recent hospitalization is reported. ROS: 06:42 Constitutional: + fever and chills Eyes: Negative for injury, pain, redness, and privacy attorney, Neck: Negative for injury, pain, and swelling, Cardiovascular: Negative for chest pain, palpitations, and edema, Respiratory: Negative for shortness of breath, wheezing, and pleuritic chest pain, Abdomen/GI: Negative for abdominal pain, diarrhea, and constipation, MS/Extremity: Negative for injury and deformity, Skin: Negative for injury, rash, and discoloration, Neuro: Negative for numbness, tingling, and seizure. Exam: 06:42 Constitutional: This is a well developed, well nourished patient who is awake, alert, rn and in no acute distress. Head/Face: Normocephalic, atraumatic. Eyes: Periorbital areas with no swelling, redness, or edema. ENT: MMM, no stridor, no swelling or exudate. Cardiovascular: Regular rate and rhythm. No pulse deficits. Respiratory: No increased work of breathing, no retractions or nasal flaring. Abdomen/GI: Soft, non-tender Skin: Warm, dry MS/ Extremity: Pulses equal, no cyanosis. Neuro: Awake and alert, GCS 15 08:09 ECG was reviewed by the Attending Physician. [facility] Vital Signs: 06:35 BP 158 / 109; Pulse 84; Resp 20 S; Temp 98.7(O); Pulse Ox 99% on R/A; Weight 81.65 kg bb (R); Height 5 ft. 0 in. (152.40 cm) (R); Pain 10/10; 07:15 BP 141 / 102; Pulse 79; Resp 17 S; Pulse Ox 97% ; Pain 10/10; jg9 08:00 BP 138 / 96; Pulse 72; Resp 14 S; Pulse Ox 95% on R/A; Pain 8/10; jg9 06:35 Body Mass Index 35.15 (81.65 kg, 152.40 cm) bb MDM: 06:19 Patient medically screened. rn 07:06 Patient medically screened. [facility] 08:06 Differential diagnosis: bronchitis, cocksackie virus, echovirus infection, group A marlyn strep tonsillitis, influenza, laryngitis, pharyngitis, tonsillitis, upper respiratory infection. Data reviewed: vital signs, nurses notes, lab test result(s), EKG, radiologic studies, plain films. Data interpreted: monitoring analyst: rate is 79 beats/min, rhythm is regular, Pulse oximetry: on room air is 97 %. Test interpretation: by ED physician or midlevel provider: plain radiologic studies. Counseling: I had a detailed discussion with the patient and/or guardian regarding: the historical points, exam findings, and any diagnostic results supporting the discharge/admit diagnosis, lab results, radiology results, the need for outpatient follow up, for definitive care, a family practitioner. 01/11 06:32 Order name: SARS-COV-2 RT PCR (Document "Date of Onset" if Symptomatic); Complete Time: rn 08:01/11 06:32 Order name: Flu; Complete Time: 08:10 rn 01/11 06:32 Order name: Strep; Complete Time: 08:10 rn 01/11 06:33 Order name: XRAY Chest (1 view); Complete Time: 08:10 rn 01/11 07:22 Order name: Throat Culture EDMS 01/11 07:34 Order name: EKG; Complete Time: 07:35 marlyn 01/11 07:34 Order name: EKG - Nurse/Tech; Complete Time: 07:53 marlyn EC:09 Rate is 76 beats/min. Rhythm is regular. QRS [place] is Normal. UT interval is normal. QRS marlyn interval is normal. QT interval is normal. No Q waves. T waves are Normal. No ST changes noted. Clinical impression: Normal ECG and No evidence of ischemia. Interpreted by me. Reviewed by me. Administered Medications: 07:50 Drug: [place] (HYDROcodone-acetaminophen) 10 mg-325 mg 1 tabs {Note: RASS-0, pain 10/10 jg9 in chest.} Route: PO; 08:19 Follow up: Response: No adverse reaction; Pain is decreased jg9 07:50 Drug: Motrin (ibuprofen) 800 mg {Note: RASS-0 pain 10/10 in chest.} Route: PO; jg9 08:19 Follow up: Response: No adverse reaction; Pain is decreased jg9 08:19 Drug: Zithromax (azithromycin) 500 mg Route: PO; jg9 08:38 Follow up: Response: No adverse reaction jg9 08:19 Drug: Decadron (dexamethasone) 10 mg Route: IM; Site: left deltoid; jg9 08:38 Follow up: Response: No adverse reaction jg9 08:19 Drug: Aspirin 81 mg Route: PO; jg9 08:38 Follow up: Response: No adverse reaction jg9 Disposition Summary: 01/11/22 08:11 Discharge Ordered Location: Home marlyn Problem: new marlyn Symptoms: have improved marlyn Condition: Stable marlyn Diagnosis - Acute upper respiratory infection, unspecified marlyn - Acute bronchitis, unspecified marlyn - Essential (primary) hypertension marlyn Followup: marlyn - With: Private Physician - When: 2 - 3 days - Reason: Recheck today's complaints, Continuance of care, Re-evaluation by your physician Discharge Instructions: - Discharge Summary Sheet marlyn - Acute Bronchitis, Adult marlyn - Cool Mist Vaporizer marlyn - Upper Respiratory Infection, Adult, [id number] marlyn - Hypertension, Adult marlyn - Hypertension, Adult, [id number] marlyn - Cough, Adult marlyn Forms: - Medication Reconciliation Form marlyn - Thank You Letter marlyn - Antibiotic Education marlyn - Prescription Opioid Use marlyn - Work release form ss Prescriptions: - Zithromax Z-Wyatt 250 mg Oral Tablet - take 1 tablet by ORAL route as directed for 5 days Day 1 - take two (2) tablets marlyn one time. Day 2, 3, 4 , 5 take one (1) tablet once daily.; 6 tablet; Refills: 0, Product Selection Permitted - Medrol (Wyatt) 4 mg Oral Tablets, Dose Pack - take 1 tablet by ORAL route as directed - follow package instructions; 1 marlyn packet; Refills: 0, Product Selection Permitted - Norvasc 5 mg Oral Tablet - take 1 tablet by ORAL route once daily; 20 tablet; Refills: 0, Product marlyn Selection Permitted Signatures: Dispatcher [employer] Ang Blanton MD MD cha Ballard, Brenda, RN RN Elder Huber MD MD rn Gilmore, Jennifer RN RN jg9
[2022-01-11] MEDS ORDERED: dexAMETHasone 10 MG/ML VIAL ONE (08:28)
[2022-01-11] MEDS ORDERED: ASPIRIN EC 81 MG TAB PO ONE (08:28)
[2022-01-11] MEDS ORDERED: AZITHROMYCIN 250 MG TAB ONE (08:29)
[2022-01-11 10:16] VITALS: TEMP 98.7
[2022-01-11 10:26] VITALS: BP 138/96; O2SAT 95
--- NOTE | 2022-01-13 05:41 | EKG ---
Test Date: 2022-01-11 Test Time: 07:50:05 Nick Setter: GHAZALA MEASUREMENT RESULTS: Intervals: Rate: 76 IA: 152 QRSD: 80 QT: 392 QTc: 441 [place]: P: 40 IA: 152 QRS: 60 T: 1 INTERPRETIVE STATEMENTS: Normal sinus rhythm Normal ECG Compared to ECG 12/30/2020 20:44:46 T-wave abnormality no longer present Electronically Signed On 01-13-22 05:38:30 CDT by Lloyd Azar
== END 2022-01-11 08:52 | disposition home or self-care (01) ==
LOC: ER 06:13
DX: J20.9 Acute bronchitis, unspecified (principal); J06.9 Acute upper respiratory infection, unspecified; I10 Essential (primary) hypertension
CPT/HCPCS: 71045; 87070; 87081; 87804; 93005; 96372; 99284; J1100; U0003

== ENCOUNTER 2022-01-14 09:46 | Emergency (ER) | payer SELFPAY ==
[2022-01-14] MEDS ORDERED: FENTANYL CITR 100 MCG/2 ML ONE (11:16)
[2022-01-14] MEDS ORDERED: IBUPROFEN 400 MG TAB ONE (11:16)
--- NOTE | 2022-01-14 11:50 | RAD REPORT ---
EXAM DESCRIPTION: RAD - Ankle Right 3 View - 01/14/2022 11:07 am CLINICAL HISTORY: Pain, trip and fall, prior fibular fracture repair COMPARISON: Ankle Right 3 View dated 11/15/2021 FINDINGS: No fracture, dislocation or periosteal reaction. Compression plate and screws are present along the lateral margin of the distal fibula. No fracture of the hardware. No joint space narrowing. Anterior and lateral soft tissue swelling present. IMPRESSION: Right ankle soft tissue swelling without fracture identifiable.
--- NOTE | 2022-01-14 11:52 | EDPHYS ---
Physician Documentation [facility] Name: Venessa Almazan Age: 41 yrs Sex: Female : 1980 Arrival Date: 01/14/2022 Time: 09:48 Bed 12 Private MD: Ang Pineda HPI: 01/14 11:27 This 41 yrs old Female presents to ER via Ambulatory with complaints of Ankle snw Injury. 11:27 The patient presents with decreased range of motion, an injury, pain. The complaints snw affect the right ankle. Onset: The symptoms/episode began/occurred suddenly, last night. Context: The problem was sustained at home, resulted from the patient tripping, step-stool, The mechanism of injury is unknown. The patient can partially bear weight on the affected extremity. Associated signs and symptoms: The patient has no apparent associated signs or symptoms. Modifying factors: The symptoms are alleviated by nothing, the symptoms are aggravated by weight bearing, movement. Severity of symptoms: At their worst the symptoms were mild, moderate. The patient has experienced a previous episode, metal plate s/p fx. The patient has not recently seen a physician. 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 - Social history:: Smoking status: Patient denies any tobacco usage or history of. ROS: 11:26 Constitutional: Negative for fever, chills, and weight loss, Eyes: Negative for injury, snw pain, redness, and discharge, ENT: Negative for injury, pain, and discharge, Neck: Negative for injury, pain, and swelling, Cardiovascular: Negative for chest pain, palpitations, and edema, Respiratory: Negative for shortness of breath, cough, wheezing, and pleuritic chest pain, Abdomen/GI: Negative for abdominal pain, nausea, vomiting, diarrhea, and constipation, Back: Negative for injury and pain, : Negative for injury, bleeding, discharge, and swelling, Skin: Negative for injury, rash, and discoloration, Neuro: Negative for headache, weakness, numbness, tingling, and seizure, Psych: Negative for depression, anxiety, suicide ideation, homicidal ideation, and hallucinations. 11:26 MS/extremity: Positive for injury or acute deformity, decreased range of motion, swelling, tenderness, of the right lateral malleolus and right ankle. Exam: 11:25 Constitutional: This is a well developed, well nourished patient who is awake, alert, snw and in no acute distress. Head/Face: Normocephalic, atraumatic. Eyes: Pupils equal round and reactive to light, extra-ocular motions intact. Lids and lashes normal. Conjunctiva and sclera are non-icteric and not injected. Cornea within normal limits. Periorbital areas with no swelling, redness, or edema. ENT: Nares patent. No nasal discharge, no septal abnormalities noted. Tympanic membranes are normal and external auditory canals are clear. Oropharynx with no redness, swelling, or masses, exudates, or evidence of obstruction, uvula midline. Mucous membranes moist. Neck: Trachea midline, no thyromegaly or masses palpated, and no cervical lymphadenopathy. Supple, full range of motion without nuchal rigidity, or vertebral point tenderness. No Meningismus. Chest/axilla: Normal chest wall appearance and motion. Nontender with no deformity. No lesions are appreciated. Cardiovascular: Regular rate and rhythm with a normal S1 and S2. No gallops, murmurs, or rubs. Normal PMI, no JVD. No pulse deficits. Respiratory: Lungs have equal breath sounds bilaterally, clear to auscultation and percussion. No rales, rhonchi or wheezes noted. No increased work of breathing, no retractions or nasal flaring. Abdomen/GI: Soft, non-tender, with normal bowel sounds. No distension or tympany. No guarding or rebound. No evidence of tenderness throughout. Back: No spinal tenderness. No costovertebral tenderness. Full range of motion. Skin: Warm, dry with normal turgor. Normal color with no rashes, no lesions, and no evidence of cellulitis. Neuro: Awake and alert, GCS 15, oriented to person, place, time, and situation. Cranial nerves II-XII grossly intact. Motor strength 5/5 in all extremities. Sensory grossly intact. Cerebellar exam normal. Normal gait. Psych: Awake, alert, with orientation to person, place and time. Behavior, mood, and affect are within normal limits. 11:25 Musculoskeletal/extremity: Extremities: noted in the right ankle: ROM: limited passive range of motion due to pain, in the right lateral malleolus, Circulation is intact in all extremities. Sensation intact. Vital Signs: 10:24 BP 136 / 100; Pulse 106; Resp 18; Temp 98.6; Pulse Ox 98% ; Weight 81.65 kg; Height 5 5 ft. 0 in. (152.40 cm); Pain 10/10; 11:00 BP 155 / 100; Pulse 102; Resp 20 S; Pulse Ox 95% on R/A; Pain 9/10; jg9 12:00 BP 154 / 98; Pulse 99; Resp 18 S; Pulse Ox 95% on R/A; Pain 5/10; jg9 10:24 Body Mass Index 35.15 (81.65 kg, 152.40 cm) 5 MDM: 10:35 Patient medically screened. snw 11:55 Data reviewed: vital signs, nurses notes. Data interpreted: Pulse oximetry: on room air snw is 98 %. Interpretation: normal. Counseling: I had a detailed discussion with the patient and/or guardian regarding: the historical points, exam findings, and any diagnostic results supporting the discharge/admit diagnosis, the presence of at least one elevated blood pressure reading (>120/80) during this emergency department visit, radiology results, the need for outpatient follow up. Response to treatment: the patient's symptoms have mildly improved after treatment. 01/14 10:31 Order name: Ankle Right 3 View XRAY; Complete Time: 11:51 snw 01/14 11:09 Order name: Walking boot; Complete Time: 12:07 snw Administered Medications: 11:12 Drug: fentaNYL (PF) 50 mcg {Note: RASS-0, 10 right ankle pain.} Route: IM; Site: jg9 right deltoid; 12:07 Follow up: Response: No adverse reaction; Pain is decreased; RASS: Alert and Calm (0) j9 11:12 Drug: Motrin (ibuprofen) 800 mg Route: PO; jg9 12:07 Follow up: Response: No adverse reaction; Pain is decreased jg9 Disposition Summary: 01/14/22 11:51 Discharge Ordered Location: Home snw Condition: Stable snw Diagnosis - Sprain of ankle snw Followup: snw - With: Emergency Department - When: As needed - Reason: Worsening of condition Followup: snw - With: Private Physician - When: 2 - 3 days - Reason: Recheck today's complaints, Continuance of care, Re-evaluation by your physician Discharge Instructions: - Discharge Summary Sheet snw - Ankle Sprain snw - RICE Therapy for Routine Care of Injuries snw Forms: - Medication Reconciliation Form snw - Thank You Letter snw - Antibiotic Education snw - Prescription Opioid Use snw - Work release form jg9 Prescriptions: - Diclofenac Sodium 75 mg Oral Tablet Sustained Release - take 1 tablet by ORAL route 2 times per day; 30 tablet; Refills: 0, Product snw Selection Permitted Signatures: Dispatcher [employer] Aidee Shah FNP-C TERRAZZO POLISHER HELPER-Csnw Flor Sanders, RN RN jh5 Dayanara Astorga RN RN jg9
--- NOTE | 2022-01-14 11:52 | ER ---
Nurse's Notes [facility] Name: Venessa Almazan Age: 41 yrs Sex: Female : 1980 Arrival Date: 01/14/2022 Time: 09:48 Bed 12 Private MD: Diagnosis: Sprain of ankle Presentation: 01/14 10:24 Chief complaint: Patient states: Pt tripped over stool last night and has right ankle jh5 pain. Pt has broken this ankle previously and has a metal plate plus screws in place. Coronavirus screen: Vaccine status: Patient reports being unvaccinated. Client denies travel out of the [place] in the last 14 days. Ebola Screen: Patient negative for fever greater than or equal to 101.5 degrees Fahrenheit, and additional compatible Ebola Virus Disease symptoms Patient denies exposure to infectious person. Patient denies travel to an Ebola-affected area in the 21 days before illness onset. Initial Sepsis Screen: Does the patient meet any 2 criteria? No. Patient's initial sepsis screen is negative. Does the patient have a suspected source of infection? No. Patient's initial sepsis screen is negative. Risk Assessment: Do you want to hurt yourself or someone else? Patient reports no desire to harm self or others. Onset of symptoms was January 14, 2022. 10:24 Method Of Arrival: Ambulatory [facility] 10:24 Acuity: ADAN 3 jh5 Triage Assessment: 10:26 General: Appears uncomfortable, obese, well groomed, Behavior is calm, cooperative, jh5 appropriate for age. Pain: Denies pain. Musculoskeletal: No deficits noted. 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 - Social history:: Smoking status: Patient denies any tobacco usage or history of. Screenin:15 Abuse screen: Denies threats or abuse. Denies injuries from another. Nutritional jg9 screening: No deficits noted. Tuberculosis screening: No symptoms or risk factors identified. Fall Risk Fall in past 12 months (25 points). Assessment: 11:00 Reassessment: Patient appears in no apparent distress at this time. No changes from jg9 previously documented assessment. 12:00 Reassessment: Patient and/or family updated on plan of care and expected duration. Pain jg9 level reassessed. Patient is alert, oriented x 3, equal unlabored respirations, skin warm/dry/pink. Patient states symptoms have improved. Vital Signs: 10:24 BP 136 / 100; Pulse 106; Resp 18; Temp 98.6; Pulse Ox 98% ; Weight 81.65 kg; Height 5 jh5 ft. 0 in. (152.40 cm); Pain 10/10; 11:00 BP 155 / 100; Pulse 102; Resp 20 S; Pulse Ox 95% on R/A; Pain 9/10; jg9 12:00 BP 154 / 98; Pulse 99; Resp 18 S; Pulse Ox 95% on R/A; Pain 5/10; jg9 10:24 Body Mass Index 35.15 (81.65 kg, 152.40 cm) 5 ED Course: 09:48 Patient arrived in ED. am2 10:19 Dayanara Astorga, RN is Primary Nurse. jg9 10:26 Triage completed. 5 10:31 Aidee Lopez FNP-C is PHCP. snw 10:31 Ang Denise MD is Attending Physician. snw 11:09 Ankle Right 3 View XRAY In Process Unspecified. EDMS 11:15 Arm band placed on right wrist. jg9 11:20 Patient has correct armband on for positive identification. Bed in low position. jg9 12:12 No provider procedures requiring assistance completed. jg9 12:13 Patient did not have IV access during this emergency room visit. jg9 Administered Medications: 11:12 Drug: fentaNYL (PF) 50 mcg {Note: RASS-0, 9/10 right ankle pain.} Route: IM; Site: 9 right deltoid; 12:07 Follow up: Response: No adverse reaction; Pain is decreased; RASS: Alert and Calm (0) jg9 11:12 Drug: Motrin (ibuprofen) 800 mg Route: PO; jg9 12:07 Follow up: Response: No adverse reaction; Pain is decreased jg9 Medication: 12:11 VIS not applicable for this client. jg9 Outcome: 11:51 Discharge ordered by . buck 12:12 Discharged to home ambulatory. jg9 12:12 Condition: stable 12:12 Discharge instructions given to patient, Instructed on discharge instructions, follow up and referral plans. Demonstrated understanding of instructions, follow-up care, walking boot Prescriptions given X 2. 12:13 Patient left the ED. jg9 Signatures: Dispatcher [employer] EDMS Aidee Lopez, NADINE-C AIR ANALYSIS ENGINEERING TECHNICIAN-Csnw Billie Rushing Jessica, RN RN jh5 Dayanara Astorga RN RN jg9
[2022-01-14 12:21] VITALS: TEMP 98.6
[2022-01-14 12:23] VITALS: O2SAT 95
[2022-01-14 12:24] VITALS: BP 154/98
== END 2022-01-14 12:13 | disposition home or self-care (01) ==
LOC: ER 09:46
DX: S93.401A Sprain of unspecified ligament of right ankle, initial encounter (principal)
CPT/HCPCS: 96372; 99283; J3010

== ENCOUNTER 2022-03-09 12:06 | Emergency (ER) | payer SELFPAY ==
[2022-03-09] MEDS ORDERED: IBUPROFEN 200 MG TAB PO ONE (12:22)
--- NOTE | 2022-03-09 13:42 | ER ---
Nurse's Notes [facility] Name: Venessa Almazan Age: 41 yrs Sex: Female : 1980 Arrival Date: 03/09/2022 Time: 12:09 Bed 25 Private MD: Diagnosis: Myalgia;Fever, unspecified;Essential (primary) hypertension Presentation: 03/09 12:12 Chief complaint: Headache, fever, and body aches x 2 days. TMAX 104. hb 12:13 Chief complaint: Intermittent upper abdominal pain since this morning. Denies N/V/D. hb Coronavirus screen: At this time, the client does not indicate any symptoms associated with coronavirus-19. Ebola Screen: No symptoms or risks identified at this time. Risk Assessment: Do you want to hurt yourself or someone else? Patient reports no desire to harm self or others. Onset of symptoms was March 09, 2022. 12:13 Method Of Arrival: Ambulatory hb 12:13 Acuity: ADAN 3 hb 12:47 Initial Sepsis Screen: Does the patient meet any 2 criteria? No. Patient's initial eh3 sepsis screen is negative. Does the patient have a suspected source of infection? No. Patient's initial sepsis screen is negative. Triage Assessment: 12:14 General: Appears in no apparent distress. Behavior is calm, cooperative. Neuro: Level hb of Consciousness is awake, alert, obeys commands, Oriented to person, place, time, situation. Cardiovascular: Patient's skin is warm and dry. Respiratory: Respiratory effort is even, unlabored, Respiratory pattern is regular, symmetrical. 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 - Social history:: Smoking status: unknown. Screenin:47 Abuse screen: Denies threats or abuse. Denies injuries from another. Nutritional eh3 screening: No deficits noted. Tuberculosis screening: No symptoms or risk factors identified. Fall Risk None identified. Assessment: 12:47 General: Appears in no apparent distress. uncomfortable, Behavior is calm, cooperative, eh3 appropriate for age. Pain: Complains of pain in epigastric area, right upper quadrant and left upper quadrant Pain does not radiate. Pain currently is 6 out of 10 on a pain scale. Quality of pain is described as sharp, squeezing, Pain began 2-3 days ago. Is intermittent. Neuro: Level of Consciousness is awake, alert, obeys commands, Oriented to person, place, time, situation. Cardiovascular: Capillary refill < 3 seconds Patient's skin is warm and dry. Respiratory: Airway is patent Respiratory effort is even, unlabored, Respiratory pattern is regular, symmetrical. GI: Abdomen is round non-distended, Reports upper abdominal pain. : No signs and/or symptoms were reported regarding the genitourinary system. EENT:. EENT: No signs and/or symptoms were reported regarding the EENT system. Derm: No signs and/or symptoms reported regarding the dermatologic system. Musculoskeletal: Reports pain in generalized body aches. 13:46 Reassessment: Patient and/or family updated on plan of care and expected duration. Pain eh3 level reassessed. Patient is alert, oriented x 3, equal unlabored respirations, skin warm/dry/pink. Vital Signs: 12:13 BP 148 / 88; Pulse 114; Resp 16; Temp 99.2; Pulse Ox 100% on R/A; Weight 81.65 kg; hb Height 5 ft. (152.40 cm); Pain 10/10; 12:47 BP 152 / 99; Pulse 115; Resp 20; Temp 103.2(O); Pulse Ox 96% on R/A; eh3 13:46 BP 147 / 96; Pulse 110; Resp 18; Temp 99.9(O); Pulse Ox 98% on R/A; eh3 12:13 Body Mass Index 35.15 (81.65 kg, 152.40 cm) ED Course: 12:09 Patient arrived in ED. rg4 12:10 Geronimo Coto DO is Attending Physician. ms3 12:14 Triage completed. hb 12:20 Shabana Teague, KATHY is Primary Nurse. eh3 12:30 COVID-19 SARS RT PCR (Document "Date of Onset" if Symptomatic) Sent. hb 12:30 Flu Sent. hb 12:30 Arm band placed on. hb 12:47 Patient has correct armband on for positive identification. Bed in low position. Call 3 light in reach. Side rails up X2. Adult w/ patient. Client placed on continuous cardiac and pulse oximetry monitoring. NIBP monitoring applied. Door closed. Noise minimized. Lights dimmed. PO fluids given. 13:41 John Shultz DO is Referral Physician. ms3 13:46 No provider procedures requiring assistance completed. Patient did not have IV access eh3 during this emergency room visit. Administered Medications: 12:30 Drug: Motrin (ibuprofen) 600 mg Route: PO; hb 13:48 Follow up: Response: Temperature is decreased; Pain is decreased eh3 Medication: 13:48 VIS not applicable for this client. 3 Outcome: 13:42 Discharge ordered by . ms3 14:07 Discharged to home ambulatory, with significant other. eh3 14:07 Condition: stable 14:07 Discharge instructions given to patient, Instructed on discharge instructions, follow up and referral plans. Demonstrated understanding of instructions, follow-up care. 14:07 Patient left the ED. 3 Signatures: Yasemin Parisi RN RN Roula Dubon rg4 Geronimo Coto DO DO ms3 Shabana Teague, KATHY RN eh3 Corrections: (The following items were deleted from the chart) 12:14 12:14 Allergies: NKA; hb hb 12:16 12:13 Chief complaint: Intermittent upper abdominal pain since this morning. Denies hb N/V/D. hb 12:19 12:13 Pulse 80bpm; Resp 16bpm; Pulse Ox 100% RA; Temp 98.1F; 43.09 kg; Height 4 ft. 10 hb in.; BMI: 19.8; Pain 6/10; hb 12:19 12:14 Allergies: Aspirin; hb hb
--- NOTE | 2022-03-09 13:42 | EDPHYS ---
Physician Documentation [facility] Name: Venessa Almazan Age: 41 yrs Sex: Female : 1980 Arrival Date: 03/09/2022 Time: 12:09 Bed 25 Private MD: ED Physician Geronimo Coto HPI: 03/09 12:21 This 41 yrs old Female presents to ER via Ambulatory with complaints of Fever, ms3 Body Aches. 12:21 The patient reports fever, that was measured at 104 degrees Fahrenheit. Onset: The ms3 symptoms/episode began/occurred this morning. Modifying factors: The patient has had contact with sick children. Associated signs and symptoms: Pertinent positives: chills, myalgias, nausea. Severity of symptoms: At their worst the symptoms were severe in the emergency department the symptoms are unchanged Pain is currently a . 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 - Social history:: Smoking status: unknown. ROS: 12:21 Neck: Negative for injury, pain, and swelling, Cardiovascular: Negative for chest pain, ms3 and palpitations. Respiratory: Negative for shortness of breath, cough, wheezing, and pleuritic chest pain. 12:21 Skin: Negative for injury, rash, and discoloration. 12:21 Constitutional: Positive for body aches, chills, fever. 12:21 Abdomen/GI: Positive for nausea, Negative for vomiting, diarrhea. 12:21 All other systems are negative. Exam: 12:21 Constitutional: This is a well developed, well nourished patient who is awake, alert, ms3 and in no acute distress. Head/Face: Normocephalic, atraumatic. ENT: Nares patent. No nasal discharge, no septal abnormalities noted. Tympanic membranes are normal and external auditory canals are clear. Oropharynx with no redness, swelling, or masses, exudates, or evidence of obstruction, uvula midline. Mucous membranes moist. Neck: Trachea midline, no cervical lymphadenopathy. Supple, full range of motion without nuchal rigidity, or vertebral point tenderness. No Meningismus. Chest/axilla: Normal chest wall appearance and motion. Nontender with no deformity. Cardiovascular: Regular rate and rhythm with a normal S1 and S2. No gallops, murmurs, or rubs. Normal PMI, no JVD. No pulse deficits. Respiratory: Lungs have equal breath sounds bilaterally, clear to auscultation and percussion. No rales, rhonchi or wheezes noted. No increased work of breathing, no retractions or nasal flaring. Abdomen/GI: Soft, non-tender, with normal bowel sounds. No distension or tympany. No guarding or rebound. No evidence of tenderness throughout. Skin: Warm, dry with normal turgor. Normal color with no rashes, no lesions, and no evidence of cellulitis. MS/ Extremity: Pulses equal, no cyanosis. Neurovascular intact. Full, normal range of motion. Vital Signs: 12:13 BP 148 / 88; Pulse 114; Resp 16; Temp 99.2; Pulse Ox 100% on R/A; Weight 81.65 kg; hb Height 5 ft. (152.40 cm); Pain 10/10; 12:47 BP 152 / 99; Pulse 115; Resp 20; Temp 103.2(O); Pulse Ox 96% on R/A; eh3 13:46 BP 147 / 96; Pulse 110; Resp 18; Temp 99.9(O); Pulse Ox 98% on R/A; eh3 12:13 Body Mass Index 35.15 (81.65 kg, 152.40 cm) hb MDM: 12:20 Patient medically screened. ms3 12:21 Differential diagnosis: viral Infection, URI, Flu vs COVID. ms3 13:42 Data reviewed: vital signs, lab test result(s), and as a result, I will discharge ms3 patient. Counseling: I had a detailed discussion with the patient and/or guardian regarding: the historical points, exam findings, and any diagnostic results supporting the discharge/admit diagnosis, the presence of at least one elevated blood pressure reading (>120/80) during this emergency department visit, lab results, the need for outpatient follow up, to return to the emergency department if symptoms worsen or persist or if there are any questions or concerns that arise at home. ED course: Discussed labs with patient. Patient to follow-up with Dr. Shultz in 2 to 3 days. Patient understands and agrees with plan. All questions were answered. Return precautions discussed include worsening symptoms, or any other concerns. 03/09 12:19 Order name: Flu; Complete Time: 13:33 hb 03/09 12:19 Order name: COVID-19 SARS RT PCR (Document "Date of Onset" if Symptomatic); Complete hb Time: 13:33 Administered Medications: 12:30 Drug: Motrin (ibuprofen) 600 mg Route: PO; hb 13:48 Follow up: Response: Temperature is decreased; Pain is decreased eh3 Disposition Summary: 03/09/22 13:42 Discharge Ordered Location: Home ms3 Condition: Stable ms3 Diagnosis - Myalgia ms3 - Fever, unspecified ms3 - Essential (primary) hypertension ms3 Followup: ms3 - With: John Shultz DO - When: 2 - 3 days - Reason: Recheck today's complaints Discharge Instructions: - Discharge Summary Sheet ms3 - Fever, Adult ms3 - Hypertension, Adult ms3 - Musculoskeletal Pain ms3 - Form - Excuse from Work, School, or Physical Activity 3 Forms: - Medication Reconciliation Form ms3 - Thank You Letter ms3 - Antibiotic Education ms3 - Prescription Opioid Use ms3 - Work release form eh3 Signatures: Dispatcher [employer] EDYasemin Crook, RN RN Geronimo Coto DO DO ms3 hSabana Teague RN RN eh3 Corrections: (The following items were deleted from the chart) 12:14 12:14 Allergies: NKA; hb hb 12:19 12:14 Allergies: Aspirin; hb hb
[2022-03-09 14:21] VITALS: BP 147/96; TEMP 99.9; O2SAT 98
== END 2022-03-09 14:07 | disposition home or self-care (01) ==
LOC: ER 12:06
DX: R50.9 Fever, unspecified (principal); M79.10 Myalgia, unspecified site; I10 Essential (primary) hypertension
CPT/HCPCS: 87804; 99283; U0003

== ENCOUNTER 2022-07-07 09:29 | Emergency (ER) | payer SELFPAY ==
[2022-07-07 10:37] LABS: Urine Blood Trace-intact (Negative); Urine Glucose Negative (Negative); Urine Protein Negative (Negative); Urine Specific Gravity 1.025 (1.005-1.030)
[2022-07-07 10:48] LABS: Urine Bacteria <20 /HPF (<20); Urine Mucus 2+ /HPF (None Seen); Urine RBC 21-50 /HPF (None Seen)
--- NOTE | 2022-07-07 11:04 | EDPHYS ---
Physician Documentation [facility] Name: Venessa Almazan Age: 41 yrs Sex: Female : 1980 Arrival Date: 07/07/2022 Time: 09:31 Bed DIS1 Private MD: ED Physician Geronimo Coto HPI: 07/07 09:51 This 41 yrs old Female presents to ER via Unassigned with complaints of ms3 Urinary Problem, Back Pain. 09:51 -year-old female with past medical history of hypertension presents for urinary ms3 symptoms that been ongoing for 2 weeks. Patient endorses dysuria, frequency, urgency. Patient states her discomfort became worse yesterday when she is experiencing back pain. Patient denies nausea, vomiting, fevers, chills. Patient states her discomfort is a 10/10.. Historical: - Allergies: 10:03 No Known Allergies; aa5 - PMHx: 10:03 Depression; hypertension- no meds; aa5 - PSHx: 10:03 Appendectomy; Cholecystectomy; Ligation of fallopian tube; Right Ankle; aa5 - Immunization history:: Adult Immunizations unknown. - Social history:: Smoking status: Patient denies any tobacco usage or history of. ROS: 09:51 Constitutional: Negative for fever, and chills. ms3 09:51 Respiratory: Negative for shortness of breath, cough, wheezing, and pleuritic chest pain, Skin: Negative for injury, rash, and discoloration. 09:51 Back: Positive for pain at rest. 09:51 : Positive for flank pain, urinary frequency, burning with urination. 09:51 All other systems are negative. Exam: 09:51 Constitutional: This is a well developed, well nourished patient who is awake, alert, ms3 and in no acute distress. Head/Face: Normocephalic, atraumatic. Neck: Trachea midline, no cervical lymphadenopathy. Supple, full range of motion without nuchal rigidity, or vertebral point tenderness. No Meningismus. Chest/axilla: Normal chest wall appearance and motion. Nontender with no deformity. Cardiovascular: Regular rate and rhythm with a normal S1 and S2. No gallops, murmurs, or rubs. Normal PMI, no JVD. No pulse deficits. Respiratory: Lungs have equal breath sounds bilaterally, clear to auscultation and percussion. No rales, rhonchi or wheezes noted. No increased work of breathing, no retractions or nasal flaring. Abdomen/GI: Soft, non-tender, with normal bowel sounds. No distension or tympany. No guarding or rebound. No evidence of tenderness throughout. 09:51 MS/ Extremity: Pulses equal, no cyanosis. Neurovascular intact. Full, normal range of motion. 09:51 Back: CVA tenderness, that is mild, is noted on the right. Vital Signs: 09:50 BP 162 / 99; Pulse 86; Resp 18 S; Temp 97.3(TE); Pulse Ox 100% on R/A; Weight 81.65 kg aa5 (R); Height 5 ft. 0 in. (152.40 cm) (R); 09:50 Body Mass Index 35.15 (81.65 kg, 152.40 cm) aa5 MDM: 09:51 Differential diagnosis: Pyelonephritis uti vs interstitial cystitis. ms3 09:54 Patient medically screened. ms3 11:36 Data reviewed: vital signs, nurses notes, lab test result(s), and as a result, I will ms3 discharge patient. I considered the following discharge prescriptions or medication management in the emergency department Medications were administered in the Emergency Department. See MAR. 11:36 Care significantly affected by the following chronic conditions: Hypertension. ms3 Counseling: I had a detailed discussion with the patient and/or guardian regarding: the historical points, exam findings, and any diagnostic results supporting the discharge/admit diagnosis, lab results, to return to the emergency department if symptoms worsen or persist or if there are any questions or concerns that arise at home. ED course: Discussed labs with patient. Patient given prescription for Vantin 200 mg twice daily x10 days. Patient stands and agrees with plan. All questions were answered. Return precautions discussed include worsening symptoms, or any other concerns. On reevaluation patient is improved, alert and orient x4, no apparent distress, nontoxic, ambulatory in emergency department, speaking full sentences. 03 09:51 Order name: Urine Microscopic Only ms3 07/07 09:51 Order name: Urine Dipstick-Ancillary (obtain specimen); Complete Time: 10:39 ms3 07/07 10:38 Order name: Urine Dipstick-Ancillary; Complete Time: 11:01 EDMS 03/06 10:43 Order name: Urine --Ancillary (enter results) bd 07/07 10:55 Order name: Urine Microscopic Only; Complete Time: 11:01 EDMS 07/07 11:20 Order name: Urine --Ancillary; Complete Time: 11:35 EDMS Administered Medications: 11:31 Drug: Ketorolac 15 mg Route: IM; Site: right deltoid; aa5 Disposition Summary: 07/07/22 11:03 Discharge Ordered Location: Home ms3 Condition: Stable ms3 Diagnosis - Pyelonephritis acute ms3 Followup: ms3 - With: Jani Gustafson MD - When: 2 - 3 days - Reason: Recheck today's complaints Discharge Instructions: - Discharge Summary Sheet ms3 - Pyelonephritis, Adult ms3 Forms: - Work release form iw - Medication Reconciliation Form ms3 - Thank You Letter ms3 - Antibiotic Education ms3 - Prescription Opioid Use ms3 Prescriptions: - cefpodoxime 200 mg Oral Tablet - take 1 tablet by ORAL route every 12 hours with food; 20 tablet; Refills: 0, ms3 Product Selection Permitted Signatures: Dispatcher [employer] Dorys Cazares, RN RN aa5 Geronimo Coto DO DO ms3
--- NOTE | 2022-07-07 11:04 | ER ---
Nurse's Notes [facility] Name: Venessa Almazan Age: 41 yrs Sex: Female : 1980 Arrival Date: 07/07/2022 Time: 09:31 Bed DIS1 Private MD: Diagnosis: Pyelonephritis acute Presentation: 07/07 09:50 Chief complaint: Patient states: dysuria, urinary frequency and urinary urgency that aa5 began 2 weeks ago. 09:50 Coronavirus screen: At this time, the client does not indicate any symptoms associated aa5 with coronavirus-19. Ebola Screen: Patient denies travel to an Ebola-affected area in the 21 days before illness onset. Initial Sepsis Screen: Does the patient meet any 2 criteria? No. Patient's initial sepsis screen is negative. Does the patient have a suspected source of infection? No. Patient's initial sepsis screen is negative. Risk Assessment: Do you want to hurt yourself or someone else? Patient reports no desire to harm self or others. Onset of symptoms was June 2022. 09:50 Method Of Arrival: Ambulatory aa5 09:50 Acuity: ADAN 4 aa5 Historical: - Allergies: 10:03 No Known Allergies; aa5 - PMHx: 10:03 Depression; hypertension- no meds; aa5 - PSHx: 10:03 Appendectomy; Cholecystectomy; Ligation of fallopian tube; Right Ankle; aa5 - Immunization history:: Adult Immunizations unknown. - Social history:: Smoking status: Patient denies any tobacco usage or history of. Vital Signs: 09:50 BP 162 / 99; Pulse 86; Resp 18 S; Temp 97.3(TE); Pulse Ox 100% on R/A; Weight 81.65 kg aa5 (R); Height 5 ft. 0 in. (152.40 cm) (R); 09:50 Body Mass Index 35.15 (81.65 kg, 152.40 cm) aa5 ED Course: :31 Patient arrived in ED. rg4 09:33 Geronimo Coto DO is Attending Physician. ms3 09:50 Arm band placed on. aa5 10:03 Triage completed. aa5 10:39 Urine Microscopic Only Sent. ph 11:03 Jani Gustafson MD is Referral Physician. ms3 11:57 Shahida Meeks, RN is Primary Nurse. iw Administered Medications: :31 Drug: Ketorolac 15 mg Route: IM; Site: right deltoid; aa5 Outcome: 11:03 Discharge ordered by . ms3 12:17 Patient left the ED. iw Signatures: Shahida Meeks, RN Dorys Katz RN RN aa5 Zohreh Teague RN RN ph Garcia, Roula 4 Geronimo Coto DO DO ms3
[2022-07-07 11:19] LABS: Urine Specific Gravity/Preg 1.025 (1.005-1.030)
[2022-07-07] MEDS ORDERED: KETOROLAC 30 MG/ML INJ ONE (11:32)
== END 2022-07-07 12:17 | disposition home or self-care (01) ==
LOC: ER 09:29
DX: N10 Acute pyelonephritis (principal)
CPT/HCPCS: 81003; 81015; 81025; 87077; 87086; 87088; 87186; 96372; 99283

== ENCOUNTER 2022-10-09 15:14 | Emergency (ER) | payer SELFPAY ==
[2022-10-09 16:27] LABS: Absolute Lymphocytes (CBC) 2.3 K/uL (0.7-4.9); Hematocrit 39.3 % (36.0-45.0); Lymphocytes % 30.4 % (15.3-44.8); MPV 8.1 fL (7.6-11.3); RBC Red Blood Cell Count 4.28 M/uL (3.86-4.86)
[2022-10-09] MEDS ORDERED: ONDANSETRON 4 MG/2 ML VIAL ONE (16:28)
[2022-10-09] MEDS ORDERED: DIAZEPAM 10 MG/2 ML INJ SYRINGE ONE (16:28)
--- NOTE | 2022-10-09 16:42 | RAD REPORT ---
EXAM DESCRIPTION: CT - Head Brain Wo Cont - 10/09/2022 4:35 pm CLINICAL HISTORY: DIZZINESS Headache, drowsiness COMPARISON: <Comparisons> TECHNIQUE: All CT scans are performed using dose optimization technique as appropriate and may inclu de automated exposure control or mA/KV adjustment according to patient size. FINDINGS: No intracranial hemorrhage, hydrocephalus or extra-axial fluid collection.No areas of brai n edema or evidence of midline shift. The paranasal sinuses and mastoids are clear. The calvarium is intact. IMPRESSION: No acute intracranial abnormality.
[2022-10-09 16:44] LABS: Potassium 3.6 mEq/L (3.5-5.1); Troponin High Sensitivity 6.5 pg/mL (<58.9)
--- NOTE | 2022-10-09 16:57 | RAD REPORT ---
EXAM DESCRIPTION: RAD - Chest Single View - 10/09/2022 4:51 pm CLINICAL HISTORY: SOB Chest pain. COMPARISON: Chest Single View dated 01/11/2022; Chest Single View dated 12/30/2020; Chest Single View dated 10/12/2019; Chest Single View dated 03/17/2019 FINDINGS: Portable technique limits examination quality. The lungs are grossly clear. The heart is normal in size. No displaced fractures. IMPRESSION: No acute intrathoracic process suspected.
--- NOTE | 2022-10-09 17:58 | ER ---
Nurse's Notes [facility] Name: Venessa Almazan Age: 41 yrs Sex: Female : 1980 Arrival Date: 10/09/2022 Time: 15:14 Bed 20 Private MD: Diagnosis: Other peripheral vertigo Presentation: 10/09 15:39 Chief complaint: Patient states: SOB, fatigue, weakness since Thursday. No fever or ll1 cough. + nausea. Coronavirus screen: Vaccine status: Patient reports being unvaccinated. Client denies travel out of the [place] in the last 14 days. At this time, the client does not indicate any symptoms associated with coronavirus-19. Ebola Screen: Patient denies travel to an Ebola-affected area in the 21 days before illness onset. Initial Sepsis Screen: Does the patient meet any 2 criteria? No. Patient's initial sepsis screen is negative. Does the patient have a suspected source of infection? No. Patient's initial sepsis screen is negative. Risk Assessment: Do you want to hurt yourself or someone else? Patient reports no desire to harm self or others. Onset of symptoms was October 07, 2022. 15:39 Method Of Arrival: Ambulatory ll1 15:39 Acuity: ADAN 3 ll1 Triage Assessment: 15:41 General: Appears uncomfortable, ill, Behavior is calm, cooperative, appropriate for ll1 age, Reports feeling ill for fatigue for. Pain: Complains of pain in head Quality of pain is described as aching, Pain began 2-3 days ago. Neuro: Reports headache. Respiratory: Reports shortness of breath Onset: The symptoms/episode began/occurred this morning, the patient has mild shortness of breath. 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 - Social history:: Smoking status: Patient denies any tobacco usage or history of. Screenin:55 [facility] [place] ED Fall Risk Assessment (Adult) Score/Fall Risk Level 0 - 2 = Low Risk. Abuse eh3 screen: Denies threats or abuse. Denies injuries from another. Nutritional screening: No deficits noted. Tuberculosis screening: No symptoms or risk factors identified. Assessment: 15:55 General: Appears in no apparent distress. uncomfortable, Behavior is cooperative, eh3 anxious. Pain: Denies pain. Neuro: Level of Consciousness is awake, alert, obeys commands, Oriented to person, place, time, situation. Cardiovascular: Reports fatigue, lightheadedness, nausea, shortness of breath, Capillary refill < 3 seconds Patient's skin is warm and dry. Rhythm is sinus rhythm. Respiratory: Airway is patent Respiratory effort is even, unlabored, Breath sounds are clear bilaterally. GI: Abdomen is round non-distended. : No signs and/or symptoms were reported regarding the genitourinary system. EENT: No signs and/or symptoms were reported regarding the EENT system. Derm: Skin is pink, warm \T\ dry. Musculoskeletal: Circulation, motion, and sensation intact. 16:24 Neuro: Dennison Agitation-Sedation Scale (RASS): 0 - Alert and Calm. eh3 17:00 Reassessment: Patient appears in no apparent distress at this time. Patient and/or 3 family updated on plan of care and expected duration. Pain level reassessed. Patient is alert, oriented x 3, equal unlabored respirations, skin warm/dry/pink. Patient states symptoms have improved. 18:00 Reassessment: Patient appears in no apparent distress at this time. Patient and/or 3 family updated on plan of care and expected duration. Pain level reassessed. Patient is alert, oriented x 3, equal unlabored respirations, skin warm/dry/pink. Vital Signs: 15:39 BP 198 / 125; Pulse 88; Resp 18; Temp 98.4; Pulse Ox 99% ; Weight 81.65 kg; Height 5 ll1 ft. 0 in. ; Pain 9/10; 15:42 BP 192 / 121; ll1 15:55 BP 201 / 108; Pulse 80; Resp 20; Pulse Ox 97% on R/A; eh3 16:05 BP 174 / 122; Pulse 84; Resp 20; Pulse Ox 97% on R/A; eh3 16:15 BP 171 / 106; Pulse 83; Resp 19; Pulse Ox 97% on R/A; eh3 17:00 BP 158 / 107; Pulse 72; Resp 1; Pulse Ox 96% on R/A; eh3 17:30 BP 154 / 108; Pulse 72; Resp 18; Pulse Ox 96% on R/A; eh3 18:00 BP 152 / 97; Pulse 81; Resp 18; Pulse Ox 96% on R/A; eh3 15:39 Body Mass Index 35.15 (81.65 kg, 152.4 cm) 1 15:39 Pain Scale: Adult [facility] ED Course: 15:38 Patient arrived in ED. 1 15:41 Kulwinder Grove PA is PHCP. [facility] 15:41 Geronimo Coto DO is Attending Physician. [facility] 15:41 Triage completed. 1 15:41 Arm band placed on. 1 15:55 Shabana Teague, KATHY is Primary Nurse. 3 15:55 Patient has correct armband on for positive identification. Bed in low position. Call eh3 light in reach. Side rails up X2. Client placed on continuous cardiac and pulse oximetry monitoring. NIBP monitoring applied. Door closed. Noise minimized. Lights dimmed. Warm blanket given. 15:55 Inserted saline lock: 20 gauge in left antecubital area, using aseptic technique. Blood eh3 collected. 16:37 CT Head Brain wo Cont In Process Unspecified. EDMS 16:53 XRAY Chest (1 view) In Process Unspecified. EDMS 17:57 Judie Hinojosa MD is Referral Physician. [facility] 18:02 No provider procedures requiring assistance completed. IV discontinued, intact, eh3 bleeding controlled, No redness/swelling at site. Pressure dressing applied. Administered Medications: 16:22 Drug: Ondansetron IVP 4 mg Route: IVP; Site: left antecubital; eh3 17:00 Follow up: Response: No adverse reaction eh3 16:24 Drug: Diazepam IVP 5 mg Route: IVP; Site: left antecubital; eh3 17:00 Follow up: Response: Marked relief of symptoms eh3 Medication: 18:03 VIS not applicable for this client. eh3 Outcome: 17:58 Discharge ordered by . [facility] 18:21 Patient left the ED. eh3 Signatures: Dispatcher [employer] EDMS Kulwinder Grove PA PA jmm Lewis, Lynsay, RN RN [facility] Shabana Teague RN RN eh3 Corrections: (The following items were deleted from the chart) 17:22 16:05 Shabana Teague RN is Primary Nurse. eh3 eh3
--- NOTE | 2022-10-09 17:58 | EDPHYS ---
Physician Documentation [facility] Name: Venessa Almazan Age: 41 yrs Sex: Female : 1980 Arrival Date: 10/09/2022 Time: 15:14 Bed 20 Private MD: ED Physician Geronimo Coto HPI: 10/09 15:50 This 41 yrs old Female presents to ER via Ambulatory with complaints of jmm Shortness Of Breath. 15:50 The patient has shortness of breath at rest. Onset: The symptoms/episode began/occurred jmm today. This is a 41-year-old female with history of depression, hypertension the presents emerged department with complaints of dizziness with a sense of the room spinning. Also complains of nausea. States her was recently diagnosed with cancer and she has been very anxious. Denies fever.. 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 - Social history:: Smoking status: Patient denies any tobacco usage or history of. ROS: 15:50 Constitutional: Negative for fever, chills, and weight loss, Cardiovascular: Negative jmm for chest pain, palpitations, and edema, Respiratory: Negative for shortness of breath, cough, wheezing, and pleuritic chest pain. 15:50 Neuro: Positive for dizziness. 15:50 All other systems are negative. Exam: 15:50 Head/Face: atraumatic. jmm 15:50 ENT: Moist Mucus Membranes Neck: Trachea midline, Supple Chest/axilla: Normal chest wall appearance and motion. Cardiovascular: Regular rate and rhythm. No edema appreciated Respiratory: Normal respirations, no respiratory distress appreciated Abdomen/GI: Non distended Back: Normal ROM Skin: General appearance color normal MS/ Extremity: Moves all extremities, no obvious deformities appreciated, no edema noted to the lower extremities Neuro: Awake and alert 15:50 Constitutional: The patient appears alert, awake, anxious. 15:50 Eyes: Nystagmus: nystagmus with fast component noted, bilaterally, Fatigable horizontal nystagmus. 15:50 Neuro: Orientation: is normal, Mentation: is normal, Memory: is normal, Cerebellar function: normal finger to nose testing. 15:50 Psych: Behavior/mood is pleasant, cooperative, anxious. Vital Signs: 15:39 BP 198 / 125; Pulse 88; Resp 18; Temp 98.4; Pulse Ox 99% ; Weight 81.65 kg; Height 5 ll1 ft. 0 in. ; Pain 9/10; 15:42 BP 192 / 121; ll1 15:55 BP 201 / 108; Pulse 80; Resp 20; Pulse Ox 97% on R/A; eh3 16:05 BP 174 / 122; Pulse 84; Resp 20; Pulse Ox 97% on R/A; eh3 16:15 BP 171 / 106; Pulse 83; Resp 19; Pulse Ox 97% on R/A; eh3 17:00 BP 158 / 107; Pulse 72; Resp 1; Pulse Ox 96% on R/A; eh3 17:30 BP 154 / 108; Pulse 72; Resp 18; Pulse Ox 96% on R/A; eh3 18:00 BP 152 / 97; Pulse 81; Resp 18; Pulse Ox 96% on R/A; eh3 15:39 Body Mass Index 35.15 (81.65 kg, 152.4 cm) ll1 15:39 Pain Scale: Adult ll1 MDM: 15:55 Patient medically screened. [facility] 17:56 Differential diagnosis: Vertigo, CVA, labyrinthitis, anxiety attack. Data reviewed: [facility] vital signs, nurses notes, lab test result(s), radiologic studies, CT scan. Counseling: I had a detailed discussion with the patient and/or guardian regarding: the historical points, exam findings, and any diagnostic results supporting the discharge/admit diagnosis, lab results, radiology results, the need for outpatient follow up, to return to the emergency department if symptoms worsen or persist or if there are any questions or concerns that arise at home. ED course: Patient states feeling much better. I do not current suspect central cause for vertigo. Patient advised to follow-up with ENT/neuro and otherwise given strict return precautions. Patient understood and agrees plan of care.. 10/09 15:59 Order name: Basic Metabolic Panel; Complete Time: 16:46 [facility] 10/09 15:59 Order name: CBC with Diff; Complete Time: 16:46 [facility] 10/09 15:59 Order name: Troponin HS; Complete Time: 16:46 [facility] 10/09 15:59 Order name: XRAY Chest (1 view); Complete Time: 17:05 [facility] 10/09 15:59 Order name: CT Head Brain wo Cont; Complete Time: 16:46 [facility] 10/09 15:59 Order name: EKG; Complete Time: 16:00 [facility] 10/09 15:59 Order name: Cardiac monitoring; Complete Time: 16:05 [facility] 10/09 15:59 Order name: EKG - Nurse/Tech; Complete Time: 16:05 [facility] 10/09 15:59 Order name: IV Saline Lock; Complete Time: 16:18 [facility] 10/09 15:59 Order name: Labs collected and sent; Complete Time: 16:18 [facility] 10/09 15:59 Order name: O2 Per Protocol; Complete Time: 16:05 [facility] 10/09 15:59 Order name: O2 Sat Monitoring; Complete Time: 16:05 [facility] Administered Medications: 16:22 Drug: Ondansetron IVP 4 mg Route: IVP; Site: left antecubital; 3 17:00 Follow up: Response: No adverse reaction 3 16:24 Drug: Diazepam IVP 5 mg Route: IVP; Site: left antecubital; eh3 17:00 Follow up: Response: Marked relief of symptoms 3 Disposition: 19:49 Co-signature as Attending Physician, Geronimo ARNOLD was immediately available on-site ms3 in the Emergency Department for consultation in the care of the patient. Disposition Summary: 10/09/22 17:58 Discharge Ordered Location: Home [facility] Condition: Stable [facility] Diagnosis - Other peripheral vertigo [facility] Followup: [facility] - With: Judie Hinojosa MD - When: 2 - 3 days - Reason: Recheck today's complaints, Continuance of care, Re-evaluation by your physician Discharge Instructions: - Discharge Summary Sheet [facility] - Vertigo [facility] Forms: - Medication Reconciliation Form [facility] - Thank You Letter [facility] - Antibiotic Education [facility] - Prescription Opioid Use [facility] - Work release form 3 Prescriptions: - ondansetron 4 mg Oral Tablet,disintegrating - take 1 tablet by ORAL route every 4-6 hours As needed; 20 tablet; Refills: 0, jmm Product Selection Permitted - Meclizine 25 mg Oral Tablet - take 1 tablet by ORAL route every 8 hours As needed; 30 tablet; Refills: 0, dharmesh Product Selection Permitted Signatures: Dispatcher [employer] Kulwinder Arrington PA PA jmm Lewis, Lynsay, RN RN ll1 Geronimo Coto DO DO ms3 Shabana Teague RN RN eh3
[2022-10-09 18:58] VITALS: TEMP 98.4
[2022-10-09 19:23] VITALS: O2SAT 96
[2022-10-09 19:26] VITALS: BP 152/97
--- NOTE | 2022-10-10 14:48 | EKG ---
Test Date: 2022-10-09 Test Time: 16:01:11 Biologics Specialist: WILLIAM MEASUREMENT RESULTS: Intervals: Rate: 79 LA: 150 QRSD: 78 QT: 382 QTc: 438 [place]: P: 70 LA: 150 QRS: 50 T: 49 INTERPRETIVE STATEMENTS: Normal sinus rhythm Normal ECG Compared to ECG 01/11/2022 07:50:05 No significant changes Electronically Signed On 10-10-22 14:44:39 CDT by Lloyd Azar
== END 2022-10-09 18:21 | disposition home or self-care (01) ==
LOC: ER 15:14
DX: H81.399 Other peripheral vertigo, unspecified ear (principal); I10 Essential (primary) hypertension; Z88.8 Allergy status to other drugs, medicaments and biological substances
CPT/HCPCS: 36415; 70450; 71045; 80048; 84484; 85025; 93005; 96374; 96375; 99284; J2405; J3360

== ENCOUNTER 2023-02-06 08:50 | Emergency (ER) | payer OTHER ==
--- NOTE | 2023-02-06 09:05 | ER ---
Nurse's Notes [facility] Name: Venessa Almazan Age: 42 yrs Sex: Female : 1980 Arrival Date: 02/06/2023 Time: 08:50 Bed IW1 Private MD: Diagnosis: Pain in right shoulder Presentation: 02/06 08:56 Chief complaint: Right sided neck pain that radiates to right shoulder and arm x 1 hb year, worse over last few days. Pain not relieved by Tizanidine. Coronavirus screen: At this time, the client does not indicate any symptoms associated with coronavirus-19. Ebola Screen: No symptoms or risks identified at this time. Initial Sepsis Screen: Does the patient meet any 2 criteria? No. Patient's initial sepsis screen is negative. Does the patient have a suspected source of infection? No. Patient's initial sepsis screen is negative. Risk Assessment: Do you want to hurt yourself or someone else? Patient reports no desire to harm self or others. Onset of symptoms was February 03, 2023. 08:56 Method Of Arrival: Ambulatory hb 08:56 Acuity: ADAN 4 hb Triage Assessment: 08:59 General: Appears in no apparent distress. uncomfortable, Behavior is calm, cooperative. hb Pain: Pain currently is 10 out of 10 on a pain scale. Neuro: Level of Consciousness is awake, alert, obeys commands, Oriented to person, place, time, situation. Cardiovascular: Patient's skin is warm and dry. Respiratory: Respiratory effort is even, unlabored, Respiratory pattern is regular, symmetrical. Musculoskeletal: Reports right neck pain that radiates to arm. Historical: - Allergies: 08:58 terbutaline; hb - Home Meds: 08:58 tizanidine oral [Active]; Lexapro 20 mg oral tablet daily [Active]; hb - PMHx: 08:58 Depression; hypertension- no meds; hb - PSHx: 08:58 Appendectomy; Cholecystectomy; Ligation of fallopian tube; Right Ankle; hb - Immunization history:: Adult Immunizations up to date. - Social history:: Smoking status: Patient denies any tobacco usage or history of. Assessment: 08:59 General: See triage assessment . hb Vital Signs: 08:56 BP 149 / 107; Pulse 97; Resp 16; Temp 97.7(TE); Pulse Ox 100% on R/A; Weight 87.54 kg; hb Height 5 ft. 0 in. ; Pain 10/10; 08:56 Body Mass Index 37.69 (87.54 kg, 152.4 cm) hb 08:56 Pain Scale: Adult hb ED Course: 08:51 Patient arrived in ED. rg4 08:58 Triage completed. 08:58 [facility] Edwards [facility] 7 08:58 Bart Calvo MD is Attending Physician. 7 08:59 Arm band placed on. hb Administered Medications: 09:12 Drug: Ketorolac IM 60 mg IM once Route: IM; Site: left deltoid; jl7 09:12 Drug: Cyclobenzaprine PO 10 mg PO once Route: PO; jl7 Outcome: 09:05 Discharge ordered by . 7 09:15 Patient left the ED. Signatures: Yasemin Parisi RN Roula Turcios rg4 Patience Cuadra RN RN jl Dayanara Edwards FNP [place] [id number]
--- NOTE | 2023-02-06 09:05 | EDPHYS ---
Physician Documentation [facility] Name: Venessa Almazan Age: 42 yrs Sex: Female : 1980 Arrival Date: 02/06/2023 Time: 08:50 Bed IW1 Private MD: ED Physician Bart Calvo HPI: 02/06 08:58 This 42 yrs old Female presents to ER via Ambulatory with complaints of jh7 Shoulder Pain. 08:58 The patient or guardian complains of decreased range of motion, pain, that is chronic. jh7 right shoulder. Context: resulted from an unknown reason, The patient experiences decreased range of motion, when attempts to raise arm. Onset: The symptoms/episode began/occurred 1 year(s) ago. Associated signs and symptoms: Pertinent negatives: abdominal pain, chest pain, diaphoresis, dyspnea. The patient has been recently seen by a physician: the patient's primary care provider, 3 day(s) ago. Patient presents with right shoulder pain for over 1 year. Reports that she cannot afford to get the MRI the specialist ordered and that her PCP gave her Zanaflex 3 days ago. States that she would like something else for the pain. Reports that pain is reproducible with movement of the shoulder. Denies any other symptoms.. Historical: - Allergies: 08:58 terbutaline; hb - Home Meds: 08:58 tizanidine oral [Active]; Lexapro 20 mg oral tablet daily [Active]; hb - PMHx: 08:58 Depression; hypertension- no meds; hb - PSHx: 08:58 Appendectomy; Cholecystectomy; Ligation of fallopian tube; Right Ankle; hb - Immunization history:: Adult Immunizations up to date. - Social history:: Smoking status: Patient denies any tobacco usage or history of. ROS: 08:58 Constitutional: Negative for fever, chills, and weight loss, Eyes: Negative for injury, jh7 pain, redness, and discharge, Neck: Negative for injury, pain, and swelling, Cardiovascular: Negative for chest pain, palpitations, and edema, Respiratory: Negative for shortness of breath, cough, wheezing, and pleuritic chest pain, Back: Negative for injury and pain, Skin: Negative for injury, rash, and discoloration, Neuro: Negative for headache, weakness, numbness, tingling, and seizure, 08:58 MS/extremity: Positive for decreased range of motion, pain, of the right shoulder, 08:58 All other systems are negative, Exam: 08:58 Constitutional: This is a well developed, well nourished patient who is awake, alert, jh7 and in no acute distress. Head/Face: Normocephalic, atraumatic. Neck: Trachea midline, no thyromegaly or masses palpated, and no cervical lymphadenopathy. Supple, full range of motion without nuchal rigidity, or vertebral point tenderness. No Meningismus. Cardiovascular: Regular rate and rhythm with a normal S1 and S2. No gallops, murmurs, or rubs. Normal PMI, no JVD. No pulse deficits. Respiratory: Lungs have equal breath sounds bilaterally, clear to auscultation and percussion. No rales, rhonchi or wheezes noted. No increased work of breathing, no retractions or nasal flaring. Back: No spinal tenderness. No costovertebral tenderness. Full range of motion. Skin: Warm, dry with normal turgor. Normal color with no rashes, no lesions, and no evidence of cellulitis. Neuro: Awake and alert, GCS 15, oriented to person, place, time, and situation. Sensory grossly intact. Normal gait. 08:58 Musculoskeletal/extremity: Extremities: noted in the right shoulder: decreased ROM, pain, ROM: limited active range of motion due to pain, in the right shoulder, Circulation is intact in all extremities. Pulses: are normal with no appreciated deficits, Sensation intact. Pain noted with abduction of the shoulder beyond 90 degrees, internal/external rotation, and with palpation over the rotator cuff area.. Vital Signs: 08:56 BP 149 / 107; Pulse 97; Resp 16; Temp 97.7(TE); Pulse Ox 100% on R/A; Weight 87.54 kg; hb Height 5 ft. 0 in. ; Pain 10/10; 08:56 Body Mass Index 37.69 (87.54 kg, 152.4 cm) hb 08:56 Pain Scale: Adult hb MDM: 08:58 Patient medically screened. [facility] 09:15 Differential diagnosis: DJD, tendonitis, Rotator cuff tear, arthritis. Data reviewed: [facility] vital signs, nurses notes. I considered the following discharge prescriptions or medication management in the emergency department Medications were administered in the Emergency Department. See MAR. Care significantly affected by the following chronic conditions: Hypertension. Care significantly affected by the following Social Determinants of Health: Poor access to healthcare and/or lack of insurance. Counseling: I had a detailed discussion with the patient and/or guardian regarding the historical points, exam findings, and any diagnostic results supporting the discharge/admit diagnosis, the need for outpatient follow up, a orthopedic surgeon, to return to the emergency department if symptoms worsen or persist or if there are any questions or concerns that arise at home. Administered Medications: 09:12 Drug: Ketorolac IM 60 mg IM once Route: IM; Site: left deltoid; jl7 09:12 Drug: Cyclobenzaprine PO 10 mg PO once Route: PO; 7 Disposition: 10:01 Co-signature as Attending Physician, Bart Calvo MD I reviewed the patient's care rt provided by the Advanced Practice Provider and agree with the diagnosis and treatment plan. Disposition Summary: 02/06/23 09:05 Discharge Ordered Notes: Location: Home [facility] Problem: chronic [facility] Symptoms: are unchanged [facility] Condition: Stable [facility] Diagnosis - Pain in right shoulder [facility] Followup: [facility] - With: Private Physician - When: 2 - 3 days - Reason: Recheck today's complaints Discharge Instructions: - Discharge Summary Sheet [facility] - Shoulder Pain [facility] Forms: - Work release form - Family Work Release [facility] - Medication Reconciliation Form [facility] - Thank You Letter [facility] - Patient Portal Instructions [facility] - Leadership Thank You Letter [facility] Prescriptions: - Medrol ([place]) 4 mg Oral Tablets, Dose Pack - take 1 tablet ORAL route as directed - follow package instructions; 1 packet; [facility] Refills: 0, Product Selection Permitted Signatures: Yasemin Parisi, RN RN Patience Cuadra RN RN jl7 Dayanara Edwards, CHRONOMETER TESTER CHRONOMETER TESTER [facility] Bart Calvo MD MD rt
[2023-02-06 09:19] VITALS: BP 149/107; TEMP 97.7; O2SAT 100
--- OUTSIDE RECORDS SUMMARY | 2023-02-06 09:19 | XMS REPORT | Continuity of Care Document ---
:1980 Author Organization [facility] t Address [address] [facility] [address] [place] [address] Care Team Providers Name Role Phone EDWINA RIVER Attending Clinician Unavailable DIXON HANCOCK Attending Clinician Unavailable MARLEN VALDES Attending Clinician Unavailable LAB90 Attending Clinician Unavailable Payers Payer Name Policy Type Policy Number Effective Date Expiration Date S ourmarlena AETNA MP CVS GOLD 9 [id number] 2022 00:00:00 [facility] ON Problems Condition Condition Condition Status Onset Resolution Last Treating Co mments Source Name Details Category Date Date Treatment Clinician Date Migraine Migraine Disease Active Guzman y 12-10 Seybold 00:00: - 00 Externa l Chronic Chronic Disease Active [place] bilateral bilateral 12-10 Seyb old low back low back 00:00: - pain pain 00 Externa without without l sciatica sciatica Anxiety Anxiety Disease Active [place] 12-10 Seybold 00:00: - 00 Externa l HTN HTN Disease Active [place] (hypertens (hypertens 12-10 Se ybold ion) ion) 00:00: - 00 Externa l Allergies, Adverse Reactions, Alerts This patient has no known allergies or adverse reactions. Social History Social Habit Start Date Stop Date Quantity Comments Source Gender identity [place] mccauley - External Sexual orientation [place] Rodriguez - External Alcohol intake 2023-02-05 2023-02-05 Ex-drinker [place] ayala 00:00:00 00:00:00 (finding) - External History of Social 2023-01-15 2023-01-15 [place] Rodriguez function 00:00:00 00:00:00 - External Tobacco use and 2022-12-10 2022-12-10 Smokeless tobacco Ke jose Rodriguez exposure 00:00:00 00:00:00 non-user - External Sex Ass[birth year] At [birth year] [place] mccauley 00:00:00 00:00:00 - External Smoking Status Start Date Stop Date Source Never smoked tobacco [place] Mullins old - External Medications Ordered Filled Start Stop Current Ordering Indication Dosage Frequency Signature Comments Components Source Medication Medication Date Date Medication? Clinician (SIG) Name Name Tizanidine 2022-05 Yes [id number] 4mg Q.25D Take 1 [place] HCl 4 MG 0-05 tablet (4 Seybol d oral Tablet 00:00: mg total) - 00 by mouth Externa every 6 l hours as needed for muscle spasms. Naproxen 2022-05 Yes [id number] 500mg Take 1 [place] 500 MG oral 0-05 [id number] tablet Seyb old Tablet 00:00: (500 mg - 00 total) by Externa mouth in l the morning and 1 tablet (500 mg total) in the evening. Take with meals. Topiramate Yes [id number] 25mg Take 1 [place] (Topamax) 9-06 tablet (25 Seyb old 25 MG oral 00:00: mg total) - Tablet 00 by mouth Externa daily. l Topiramate 0 Yes [id number] 25mg Take 1 [place] (Topamax) 9-06 tablet (25 Seyb old 25 MG oral 00:00: mg total) - Tablet 00 by mouth Externa daily. l Topiramate 2022-0 Yes [id number] 25mg Take 1 [place] (Topamax) 9-06 tablet (25 Seyb old 25 MG oral 00:00: mg total) - Tablet 00 by mouth Externa daily. l Lisinopril 2022-0 Yes [id number] 20mg Take 1 K elsey 20 MG oral 8-09 tablet (20 Sey bold Tablet 00:00: mg total) - 00 by mouth Externa daily l hydrOXYzine 2022-0 Yes [id number] 25mg Q.5D Take 1 [place] Pamoate 25 8-09 capsule Seybol d MG oral 00:00: (25 mg - Capsule 00 total) by Externa mouth 2 l times daily as needed for anxiety Escitalopra 2022-0 Yes [id number] 10mg Take 1 [place] m Oxalate 8-09 tablet (10 Seyb old 10 MG oral 00:00: mg total) - Tablet 00 by mouth Externa daily l Gabapentin 3-0 Yes [id number] 100mg Q.5D Take 1 [place] 100 MG oral 8-09 capsule Seybo ld Capsule 00:00: (100 mg - 00 total) by Externa mouth 2 l times daily as needed (pain) Lisinopril 2022-0 Yes [id number] 20mg Take 1 K elsey 20 MG oral 8-09 tablet (20 Sey bold Tablet 00:00: mg total) - 00 by mouth Externa daily l hydrOXYzine 3-0 Yes [id number] 25mg Q.5D Take 1 [place] Pamoate 25 8-09 capsule Seybol d MG oral 00:00: (25 mg - Capsule 00 total) by Externa mouth 2 l times daily as needed for anxiety Escitalopra 2022-0 Yes [id number] 10mg Take 1 [place] m Oxalate 8-09 tablet (10 Seyb old 10 MG oral 00:00: mg total) - Tablet 00 by mouth Externa daily l Gabapentin 3-0 Yes [id number] 100mg Q.5D Take 1 [place] 100 MG oral 8-09 capsule Seybo ld Capsule 00:00: (100 mg - 00 total) by Externa mouth 2 l times daily as needed (pain) Lisinopril 3-0 Yes [id number] 20mg Take 1 K elsey 20 MG oral 8-09 tablet (20 Sey bold Tablet 00:00: mg total) - 00 by mouth Externa daily l hydrOXYzine 2023-0 Yes [id number] 25mg Q.5D Take 1 [place] Pamoate 25 8-09 capsule Seybol d MG oral 00:00: (25 mg - Capsule 00 total) by Externa mouth 2 l times daily as needed for anxiety Escitalopra 2022-0 Yes [id number] 10mg Take 1 [place] m Oxalate 8-09 tablet (10 Seyb old 10 MG oral 00:00: mg total) - Tablet 00 by mouth Externa daily l Gabapentin 2023-0 Yes [id number] 100mg Q.5D Take 1 [place] 100 MG oral 8-09 capsule Seybo ld Capsule 00:00: (100 mg - 00 total) by Externa mouth 2 l times daily as needed (pain) Lisinopril 2022-0 Yes [id number] 20mg Take 1 K elsey 20 MG oral 8-09 tablet (20 Sey bold Tablet 00:00: mg total) - 00 by mouth Externa daily l hydrOXYzine 2022-0 Yes [id number] 25mg Q.5D Take 1 [place] Pamoate 25 8-09 capsule Seybol d MG oral 00:00: (25 mg - Capsule 00 total) by Externa mouth 2 l times daily as needed for anxiety Escitalopra 2022-0 Yes [id number] 10mg Take 1 [place] m Oxalate 8-09 tablet (10 Seyb old 10 MG oral 00:00: mg total) - Tablet 00 by mouth Externa daily l Gabapentin 2022-0 Yes [id number] 100mg Q.5D Take 1 [place] 100 MG oral 8-09 capsule Seybo ld Capsule 00:00: (100 mg - 00 total) by Externa mouth 2 l times daily as needed (pain) Lisinopril 2022-0 2022- No 10mg Take 1 Kait ey 10 MG oral 7-13 08-09 tablet (10 Se ybold Tablet 00:00: 00:00 mg total) - 00 :00 by mouth Externa daily l Escitalopra 2022-0 3- No 5mg Take 1 Bentley sey m Oxalate 5 6-30 08-09 tablet (5 Se ybold MG oral 00:00: 00:00 mg total) - Tablet 00 :00 by mouth Externa daily l Amitriptyli 2022-0 Yes [place] ne HCl 10 6-19 Seybold MG oral 00:00: - Tablet 00 Externa l Amitriptyli 3-0 3- No 10mg Take 1 Bentley sey ne HCl 10 6-19 08-09 tablet (10 Sey bold MG oral 00:00: 00:00 mg total) - Tablet 00 :00 by mouth Externa daily l hydrOXYzine 2023-0 2023- No TAKE 1 Bentley sey Pamoate 25 6-16 08-09 CAPSULE BY Se ybold MG oral 00:00: 00:00 MOUTH - Capsule 00 :00 EVERY 8 Externa HOURS l NEEDED FOR ANXIETY Vital Signs Vital Name Observation Time Observation Value Comments Source Respiratory rate 2023-02-05 19:14:00 14 /min Kait ey Seybold - External Body height 2023-02-05 19:14:00 152.4 cm [place] Snell eybold - External Body weight 2023-02-05 19:14:00 87.998 kg [place] Snell eybold - External BMI 2023-02-05 19:14:00 37.89 kg/m2 [place] Snell eybold - External Systolic blood 2023-02-05 19:14:00 130 mm[Hg] [place] Seybold - pressure External Diastolic blood 2023-02-05 19:14:00 78 mm[Hg] Bentleyse y Seybold - pressure External Heart rate 2023-02-05 19:14:00 95 /min [place] Snell eybold - External Body temperature 2023-02-05 19:14:00 36.67 Pat Kait lilly Seybold - External Systolic blood 2023-01-15 19:21:00 120 mm[Hg] [place] Seybold - pressure External Diastolic blood 2023-01-15 19:21:00 82 mm[Hg] Bentleyse y Seybold - pressure External Heart rate 2023-01-15 19:21:00 64 /min [place] Snell eybold - External Body height 2023-01-15 19:21:00 152.4 cm [place] Snell eybold - External Body weight 2023-01-15 19:21:00 87.091 kg [place] Snell eybold - External BMI 2023-01-15 19:21:00 37.50 kg/m2 [place] Snell eybold - External Systolic blood 2023-01-07 18:57:00 123 mm[Hg] [place] Seybold - pressure External Diastolic blood 2023-01-07 18:57:00 80 mm[Hg] Bentleyse y Seybold - pressure External Heart rate 2023-01-07 18:57:00 86 /min [place] Snell eybold - External Body temperature 2023-01-07 18:57:00 36.61 Pat Kait ey Seybold - External Respiratory rate 2023-01-07 18:57:00 20 /min Kait ey Seybold - External Body height 2023-01-07 18:57:00 152.4 cm [place] Snell eybold - External Body weight 2023-01-07 18:57:00 84.369 kg [place] Snell eybold - External BMI 2023-01-07 18:57:00 36.33 kg/m2 [place] Snell eybold - External Oxygen saturation in 2023-01-07 18:57:00 99 /min [place] Seybold - Arterial blood by External Pulse oximetry Systolic blood 2022-12-10 15:38:00 142 mm[Hg] [place] Seybold - pressure External Diastolic blood 2022-12-10 15:38:00 89 mm[Hg] Bentleyse y Seybold - pressure External Heart rate 2022-12-10 15:38:00 79 /min [place] Snell eybold - External Body temperature 2022-12-10 15:38:00 36.61 Pat Kait ey Seybold - External Respiratory rate 2022-12-10 15:38:00 15 /min Kait ey Seybold - External Body height 2022-12-10 15:38:00 152.4 cm [place] Snell eybold - External Body weight 2022-12-10 15:38:00 86.183 kg [place] Snell eybold - External BMI 2022-12-10 15:38:00 37.11 kg/m2 [place] lillybold - External Oxygen saturation in 2022-12-10 15:38:00 99 /min [place] Rodriguez - Arterial blood by External Pulse oximetry Procedures This patient has no known procedures. Encounters Start End Encounter Admission Attending Care Care Encounter Source Date/Time Date/Time Type Type Clinicians Facility Department ID 2023-02-05 2023-02-05 Outpatient RICHMOND RIVER [id number] [place] 14:30:00 14:30:00 EDWINA Seybol d 2023-02-04 2023-02-04 Outpatient RICHMOND HANCOCK [id number] [place] 16:00:00 16:00:00 DIXON Seybol d 2023-01-21 2023-01-21 Outpatient RICHMOND FRAGOSO [id number] [place] 11:15:00 11:15:00 Seybol d 2023-01-16 2023-01-16 Outpatient RICHMOND FRAGOSO [id number] [place] 00:00:00 00:00:00 Seybol d 2023-01-15 2023-01-15 Outpatient VALDES, RICHMOND FRAGOSO [id number] [place] 15:15:00 15:15:00 MARLEN Seybol d 2023-01-15 2023-01-15 Outpatient RICHMOND FRAGOSO [id number] [place] 15:00:00 15:00:00 Seybol d 2023-01-09 2023-01-09 Outpatient PREZAS, RICHMOND FRAGOSO [id number] [place] 00:00:00 00:00:00 DIXON Seybol d 2023-01-08 2023-01-08 Outpatient LAB90 RICHMOND FRAGOSO [id number] [place] 08:25:00 08:25:00 Seybol d 2023-01-08 2023-01-08 Outpatient RICHMOND FRAGOSO [id number] [place] 00:00:00 00:00:00 Seybol d 2023-01-08 2023-01-08 Outpatient PREZASRICHMOND [id number] [place] 00:00:00 00:00:00 DIXON Seybol d 2023-01-08 2023-01-08 Outpatient PREZAS, RICHMOND FRAGOSO [id number] [place] 00:00:00 00:00:00 DIXON Seybol d 2023-01-08 2023-01-08 Outpatient PREZASRICHMOND [id number] [place] 00:00:00 00:00:00 DIXON Seybol d 2023-01-07 2023-01-07 Outpatient PREZASRICHMOND [id number] [place] 14:15:00 14:15:00 DIXON Seybol d 2022-12-16 2022-12-16 Outpatient PREZAS, RICHMOND FRAGOSO [id number] [place] 00:00:00 00:00:00 DIXON Seybol d 2022-12-10 2022-12-10 Outpatient PREZASRICHMOND [id number] [place] 10:30:00 10:30:00 DIXON Seybol d 2022-10-31 2022-10-31 Outpatient [facility] [id number] [place] 15:40:11 15:40:11 0630 F Daniel 2022-10-17 2022-10-17 Outpatient [facility] [id number] [place] 15:40:34 15:40:34 0616 F Daniel Results Test Description Test Time Test Comments Results Result Comments Source TSH, THIRD GENERATION 2022-11-01 04:59:50 Test Item Value Reference Range Interpretation Comme nts TSH, THIRD GENERATION (test 2.840 UIU/ML 0.400-4.100 UNLESS OTHERWISE INDICATED, code = 2821) ALL TESTING PER FORMED AT [facility], [facility]. [address] [place] [address] 4281 ROTOPRINTER: Alec DAVALOS [id number] [facility] [place] [id number]
[2023-02-06] MEDS ORDERED: KETOROLAC 30 MG/ML INJ ONE (09:21)
[2023-02-06] MEDS ORDERED: CYCLOBENZAPRINE 10 MG TAB ONE (09:21)
== END 2023-02-06 09:15 | disposition home or self-care (01) ==
LOC: ER 08:50
DX: M25.511 Pain in right shoulder (principal); Z88.8 Allergy status to other drugs, medicaments and biological substances
CPT/HCPCS: 96372; 99284

== ENCOUNTER 2023-02-16 08:23 | Emergency (ER) | payer OTHER ==
--- OUTSIDE RECORDS SUMMARY | 2023-02-16 08:26 | XMS REPORT | Continuity of Care Document ---
:[address] [facility] t Address [address] [facility] [address] [place] [address] Care Team Providers Name Role Phone EDWINA RIVER Attending Clinician Unavailable DIXON HANCOCK Attending Clinician Unavailable MARLEN VALDES Attending Clinician Unavailable LAB90 Attending Clinician Unavailable Payers Payer Name Policy Type Policy Number Effective Date Expiration Date S ourmarlena AETNA MP [facility] GOLD 9 [id number] 2022 00:00:00 [facility] ON Problems Condition Condition Condition Status [...] Clinician (SIG) Name Name Tizanidine 2022-05 Yes [id number] 4mg Q.25D Take 1 [place] HCl 4 MG 0-05 tablet (4 Seybol d oral Tablet 00:00: mg total) - 00 by mouth Externa every 6 l hours as needed for muscle spasms. Naproxen 2022-05 Yes [id number] 500mg Take 1 [place] 500 MG oral 0-05 [id number] tablet Seyb old Tablet 00:00: (500 mg - 00 total) by Externa mouth in l the morning and 1 tablet (500 mg total) in the evening. Take with meals. Topiramate Yes [id number] 25mg Take 1 [place] (Topamax) 9-06 tablet (25 Seyb old 25 MG oral 00:00: mg total) - Tablet 00 by mouth Externa daily. l Topiramate 0 Yes [id number] 25mg Take 1 [place] (Topamax) 9-06 tablet (25 Seyb old 25 MG oral 00:00: mg total) - Tablet 00 by mouth Externa daily. l Topiramate 2022-0 Yes [id number] 25mg Take 1 [place] (Topamax) 9-06 tablet (25 Seyb old 25 MG oral 00:00: mg total) - Tablet 00 by mouth Externa daily. l Lisinopril 2022-0 Yes [id number] 20mg Take 1 K elsey 20 MG oral 8-09 tablet (20 Sey bold Tablet 00:00: mg total) - 00 by mouth Externa daily l hydrOXYzine 2022-0 Yes [id number] 25mg Q.5D Take 1 [place] Pamoate 25 8-09 capsule Seybol d MG oral 00:00: (25 mg - Capsule 00 total) by Externa mouth 2 l times daily as needed for anxiety Escitalopra 2022-0 Yes [id number] 10mg Take 1 [place] m Oxalate 8-09 tablet (10 Seyb old 10 MG oral 00:00: mg total) - Tablet 00 by mouth Externa daily l Gabapentin 3-0 Yes [id number] 100mg Q.5D Take 1 [place] 100 MG oral 8-09 capsule Seybo ld Capsule 00:00: (100 mg - 00 total) by Externa mouth 2 l times daily as needed (pain) Lisinopril 2022-0 Yes [id number] 20mg Take 1 K elsey 20 MG oral 8-09 tablet (20 Sey bold Tablet 00:00: mg total) - 00 by mouth Externa daily l hydrOXYzine 3-0 Yes [id number] 25mg Q.5D Take 1 [place] Pamoate 25 8-09 capsule Seybol d MG oral 00:00: (25 mg - Capsule 00 total) by Externa mouth 2 l times daily as needed for anxiety Escitalopra 2022-0 Yes [id number] 10mg Take 1 [place] m Oxalate 8-09 tablet (10 Seyb old 10 MG oral 00:00: mg total) - Tablet 00 by mouth Externa daily l Gabapentin 3-0 Yes [id number] 100mg Q.5D Take 1 [place] 100 MG oral 8-09 capsule Seybo ld Capsule 00:00: (100 mg - 00 total) by Externa mouth 2 l times daily as needed (pain) Lisinopril 3-0 Yes [id number] 20mg Take 1 K elsey 20 MG oral 8-09 tablet (20 Sey bold Tablet 00:00: mg total) - 00 by mouth Externa daily l hydrOXYzine 2023-0 Yes [id number] 25mg Q.5D Take 1 [place] Pamoate 25 8-09 capsule Seybol d MG oral 00:00: (25 mg - Capsule 00 total) by Externa mouth 2 l times daily as needed for anxiety Escitalopra 2022-0 Yes [id number] 10mg Take 1 [place] m Oxalate 8-09 tablet (10 Seyb old 10 MG oral 00:00: mg total) - Tablet 00 by mouth Externa daily l Gabapentin 2023-0 Yes [id number] 100mg Q.5D Take 1 [place] 100 MG oral 8-09 capsule Seybo ld Capsule 00:00: (100 mg - 00 total) by Externa mouth 2 l times daily as needed (pain) Lisinopril 2022-0 Yes [id number] 20mg Take 1 K elsey 20 MG oral 8-09 tablet (20 Sey bold Tablet 00:00: mg total) - 00 by mouth Externa daily l hydrOXYzine 2022-0 Yes [id number] 25mg Q.5D Take 1 [place] Pamoate 25 8-09 capsule Seybol d MG oral 00:00: (25 mg - Capsule 00 total) by Externa mouth 2 l times daily as needed for anxiety Escitalopra 2022-0 Yes [id number] 10mg Take 1 [place] m Oxalate 8-09 tablet (10 Seyb old 10 MG oral 00:00: mg total) - Tablet 00 by mouth Externa daily l Gabapentin 2022-0 Yes [id number] 100mg Q.5D Take 1 [place] 100 MG [...] ID 2023-02-05 2023-02-05 Outpatient RICHMOND RIVER [id number] [place] 14:30:00 14:30:00 EDWINA Seybol d 2023-02-04 2023-02-04 Outpatient RICHMOND HANCOCK [id number] [place] 16:00:00 16:00:00 DIXON Seybol d 2023-01-21 2023-01-21 Outpatient RICHMOND FRAGOSO [id number] [place] 11:15:00 11:15:00 Seybol d 2023-01-16 2023-01-16 Outpatient RICHMOND FRAGOSO [id number] [place] 00:00:00 00:00:00 Seybol d 2023-01-15 2023-01-15 Outpatient VALDES, RICHMOND FRAGOSO [id number] [place] 15:15:00 15:15:00 MARLEN Seybol d 2023-01-15 2023-01-15 Outpatient RICHMOND FRAGOSO [id number] [place] 15:00:00 15:00:00 Seybol d 2023-01-09 2023-01-09 Outpatient PREZAS, RICHMOND FRAGOSO [id number] [place] 00:00:00 00:00:00 DIXON Seybol d 2023-01-08 2023-01-08 Outpatient LAB90 RICHMOND FRAGOSO [id number] [place] 08:25:00 08:25:00 Seybol d 2023-01-08 2023-01-08 Outpatient RICHMOND FRAGOSO [id number] [place] 00:00:00 00:00:00 Seybol d 2023-01-08 2023-01-08 Outpatient PREZASRICHMOND [id number] [place] 00:00:00 00:00:00 DIXON Seybol d 2023-01-08 2023-01-08 Outpatient PREZAS, RICHMOND FRAGOSO [id number] [place] 00:00:00 00:00:00 DIXON Seybol d 2023-01-08 2023-01-08 Outpatient PREZASRICHMOND [id number] [place] 00:00:00 00:00:00 DIXON Seybol d 2023-01-07 2023-01-07 Outpatient PREZASRICHMOND [id number] [place] 14:15:00 14:15:00 DIXON Seybol d 2022-12-16 2022-12-16 Outpatient PREZAS, RICHMOND FRAGOSO [id number] [place] 00:00:00 00:00:00 DIXON Seybol d 2022-12-10 2022-12-10 Outpatient PREZASRICHMOND [id number] [place] 10:30:00 10:30:00 DIXON Seybol d 2022-10-31 2022-10-31 Outpatient [facility] [id number] [place] 15:40:11 15:40:11 0630 F Daniel 2022-10-17 2022-10-17 Outpatient [facility] [id number] [place] 15:40:34 15:40:34 0616 F Daniel Results Test Description Test Time Test Comments Results Result Comments Source TSH, THIRD GENERATION 2022-11-01 04:59:50 Test Item Value Reference Range Interpretation Comme nts TSH, THIRD GENERATION (test 2.840 UIU/ML 0.400-4.100 UNLESS OTHERWISE INDICATED, code = 2821) ALL TESTING PER FORMED AT [facility], [facility]. [address] [place] [address] 1612 HUMAN RESOURCES LEADER: Alec DAVALOS [id number] [facility] [place] [id number]
[2023-02-16] MEDS ORDERED: ONDANSETRON 4 MG (ODT) TAB ONE (08:53)
--- NOTE | 2023-02-16 09:41 | EDPHYS ---
Physician Documentation [facility] Name: Venessa Almazan Age: 42 yrs Sex: Female : 1980 Arrival Date: 02/16/2023 Time: 08:23 Bed 17 Private MD: ED Physician Lv Shultz HPI: 02/16 09:38 This 42 yrs old Female presents to ER via Ambulatory with complaints of Flu kb Symptoms, Covid Exposure. 09:39 The patient or guardian reports cough, that is intermittent, described as mild, flu kb symptoms, myalgias. Onset: The symptoms/episode began/occurred 3 day(s) ago. Severity of symptoms: At their worst the symptoms were moderate, in the emergency department the symptoms are unchanged. Modifying factors: The symptoms are alleviated by nothing, the symptoms are aggravated by nothing. Associated signs and symptoms: Pertinent positives: diarrhea, nausea, rhinorrhea, sore throat, vomiting, Pertinent negatives: fever. The patient has not experienced similar symptoms in the past. The patient has not recently seen a physician. Pt reports her son was diagnosed with covid 6 days ago and she started having symptoms 3 days ago. Reports cough, congestion, sore throat, ear pain, n/v/d, abd cramping and headache. Denies fever. . 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 - Social history:: Smoking status: Patient denies any tobacco usage or history of. ROS: 09:39 Cardiovascular: Negative for chest pain, palpitations, and edema, kb 09:39 Constitutional: Positive for malaise, 09:39 ENT: Positive for ear pain, sinus congestion, sore throat, 09:39 Respiratory: Positive for cough, 09:39 Abdomen/GI: Positive for nausea, vomiting, and diarrhea, abdominal cramps, 09:39 Neuro: Positive for headache, 09:39 All other systems are negative, Exam: 09:39 Constitutional: This is a well developed, well nourished patient who is awake, alert, kb and in no acute distress. Head/Face: Normocephalic, atraumatic. ENT: Moist Mucous membranes Cardiovascular: Regular rate Respiratory: Respirations even and unlabored. No increased work of breathing. Talking in full sentences Abdomen/GI: Soft, non-tender. No distention Skin: Warm, dry with normal turgor. Normal color. MS/ Extremity: Pulses equal, no cyanosis. Neurovascular intact. Full, normal range of motion. Neuro: Awake and alert, GCS 15, oriented to person, place, time, and situation. Moves all extremities. Normal gait. Vital Signs: 08:29 BP 143 / 96; Pulse 77; Resp 16; Temp 98.4; Pulse Ox 99% on R/A; Pain 10/10; ll1 08:29 Pain Scale: Adult ll1 MDM: 08:28 Patient medically screened. kb 09:40 Differential Diagnosis: Influenza Upper Respiratory Infection Viral Syndrome Other kb covid, viral gastroenteritis. Data reviewed: vital signs, nurses notes. I considered the following discharge prescriptions or medication management in the emergency department I discussed and recommended Over The Counter medications, Antibiotics: At this time antibiotics are not recommended. Counseling: I had a detailed discussion with the patient and/or guardian regarding the historical points, exam findings, and any diagnostic results supporting the discharge/admit diagnosis, lab results, the need for outpatient follow up, a family practitioner, to return to the emergency department if symptoms worsen or persist or if there are any questions or concerns that arise at home. 02/16 08:34 Order name: Flu; Complete Time: 09:30 kb 02/16 08:34 Order name: SARS-COV-2 RT PCR; Complete Time: 09:30 kb 02/16 09:31 Order name: PO challenge; Complete Time: 09:54 kb Administered Medications: 08:51 Drug: Ondansetron Oral Disintegrating Tablet Oral Disintegrating Tablet 4 mg PO once kc6 Route: PO; 09:54 Follow up: Response: No adverse reaction ap3 Disposition Summary: 02/16/23 09:41 Discharge Ordered Notes: Location: Home kb Condition: Stable kb Diagnosis - Viral infection, unspecified kb Followup: kb - With: Emergency Department - When: As needed - Reason: Worsening of condition Followup: kb - With: Private Physician - When: 2 - 3 days - Reason: Recheck today's complaints, Continuance of care, Re-evaluation by your physician Discharge Instructions: - Discharge Summary Sheet kb - Viral Illness, Adult kb Forms: - Medication Reconciliation Form kb - Thank You Letter kb - Antibiotic Education kb - Prescription Opioid Use kb - Patient Portal Instructions kb - Leadership Thank You Letter kb - Work release form ap3 Prescriptions: - ondansetron 4 mg Oral Tablet,disintegrating - take 1 tablet ORAL route every 6 hours As needed; 12 tablet; Refills: 0, kb Product Selection Permitted Signatures: Dispatcher [employer] EDJoanna Negron, STILE RIPSAW OPERATOR-C STILE RIPSAW OPERATOR-Dain Solano RN RN ll1 Sulema Machuca RN RN [id number] Billie Ramos RN ap3
--- NOTE | 2023-02-16 09:41 | ER ---
Nurse's Notes [facility] Name: Venessa Almazan Age: 42 yrs Sex: Female : 1980 Arrival Date: 02/16/2023 Time: 08:23 Bed 17 Private MD: Diagnosis: Viral infection, unspecified Presentation: 02/16 08:29 Chief complaint: Patient states: Chills, LAMAS, cough, body aches, nausea since Thursday. ll1 Exposed to covid by a family member. Coronavirus screen: Vaccine status: Patient reports being unvaccinated. Client denies travel out of the [place] in the last 14 days. chills, congestion, cough unrelated to allergies, fatigue, headache, muscle pain, sore throat, Client presents with at least one sign or symptom that may indicate coronavirus-19. Standard/surgical mask placed on the client. Ebola Screen: Patient denies travel to an Ebola-affected area in the 21 days before illness onset. Initial Sepsis Screen: Does the patient meet any 2 criteria? No. Patient's initial sepsis screen is negative. Does the patient have a suspected source of infection? Yes: Productive cough/pneumonia. Risk Assessment: Do you want to hurt yourself or someone else? Patient reports no desire to harm self or others. Onset of symptoms was February 14, 2023. 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 - Social history:: Smoking status: Patient denies any tobacco usage or history of. Screenin:[address] [facility] ED Fall Risk Assessment (Adult) History of falling in the last 3 months, kc6 including since admission No falls in past 3 months (0 pts) Confusion or Disorientation No (0 pts) Intoxicated or Sedated No (0 pts) Impaired Gait No (0 pts) Mobility Assist Device Used No (0 pt) Altered Elimination No (0 pt) Score/Fall Risk Level 0 - 2 = Low Risk. Abuse screen: Denies threats or abuse. Denies injuries from another. Nutritional screening: No deficits noted. Tuberculosis screening: No symptoms or risk factors identified. Assessment: 08:59 General: Appears in no apparent distress. comfortable, ill, Behavior is calm, kc6 cooperative, appropriate for age. Pain: Complains of pain in abdomen. Neuro: Level of Consciousness is awake, alert, obeys commands, Oriented to person, place, time, situation, Appropriate for age. Cardiovascular: Capillary refill < 3 seconds. Respiratory: Reports cough that is Airway is patent Trachea midline Respiratory effort is even, unlabored, Respiratory pattern is regular, symmetrical. GI: Abdomen is flat, non-distended, Bowel sounds present X 4 quads. Abd is soft X 4 quads Reports nausea, Patient currently denies diarrhea, vomiting. : No signs and/or symptoms were reported regarding the genitourinary system. EENT: Reports nasal congestion. Derm: No signs and/or symptoms reported regarding the dermatologic system. Skin is intact, is healthy with good turgor, Skin is pink, warm \T\ dry. Musculoskeletal: No signs and/or symptoms reported regarding the musculoskeletal system. Circulation, motion, and sensation intact. Capillary refill < 3 seconds, Range of motion: intact in all extremities. Vital Signs: 08:29 BP 143 / 96; Pulse 77; Resp 16; Temp 98.4; Pulse Ox 99% on R/A; Pain 10/10; ll1 08:29 Pain Scale: Adult ll1 ED Course: 08:27 Patient arrived in ED. rg4 08:28 Joanna Bernardo FNP-C is [facility]. kb 08:28 Lv Shultz MD is Attending Physician. kb 08:28 Arm band placed on Patient placed in an exam room, on a stretcher. ll1 08:39 Sulema Machuca, KATHY is Primary Nurse. kc6 08:41 Triage completed. ll1 08:59 Patient has correct armband on for positive identification. Bed in low position. Call kc6 light in reach. Side rails up X 1. Client placed on continuous cardiac and pulse oximetry monitoring. NIBP monitoring applied. 09:54 Provided Education on: discharge intructions. ap3 09:54 No provider procedures requiring assistance completed. Patient did not have IV access ap3 during this emergency room visit. Administered Medications: 08:51 Drug: Ondansetron Oral Disintegrating Tablet Oral Disintegrating Tablet 4 mg PO once kc6 Route: PO; :54 Follow up: Response: No adverse reaction ap3 Medication: :55 VIS not applicable for this client. ap3 Outcome: 09:41 Discharge ordered by MD. mendoza :54 Discharged to home ambulatory, with family, ap3 :54 Condition: good :54 Discharge instructions given to patient, Instructed on discharge instructions, follow up and referral plans. medication usage, Demonstrated understanding of instructions, follow-up care, medications, Prescriptions given X 1, :55 Patient left the ED. ap3 Signatures: Joanna Bernardo, REBECCA MCCOY-Roula David4 Billie Ramos RN RN ap3 Dain Monique RN RN ll1 Sulema Machuca RN RN kc6
[2023-02-16 10:31] VITALS: BP 143/96; TEMP 98.4; O2SAT 99
== END 2023-02-16 09:55 | disposition home or self-care (01) ==
LOC: ER 08:23
DX: B34.9 Viral infection, unspecified (principal); Z20.822 Contact with and (suspected) exposure to COVID-19; Z88.8 Allergy status to other drugs, medicaments and biological substances
CPT/HCPCS: 87635; 87804 ×2; 99283; Q0162

== ENCOUNTER 2023-03-19 10:35 | Emergency (ER) | payer OTHER ==
--- OUTSIDE RECORDS SUMMARY | 2023-03-19 10:38 | XMS REPORT | Continuity of Care Document ---
:1980 Author Organization [facility] t Address [address] [facility] [address] [place] [id number] Care Team Providers Name Role Phone DIXON HANCOCK Attending Clinician Unavailable EDWINA RIVER Attending Clinician Unavailable MARLEN VALDES Attending Clinician Unavailable [id number] Attending Clinician Unavailable Payers Payer Name Policy Type Policy Number Effective Date Expiration Date S ourmarlena [employer] MP [employer] GOLD 9 [id number] 2022 00:00:00 [facility] ON Problems Condition Condition Condition Status Onset Resolution Last Treating Co mments Source Name Details Category Date Date Treatment Clinician Date HTN HTN Disease Active [place] (hypertens (hypertens 12-10old ion) ion) 00:00: - 00 Externa l Migraine Migraine Disease Active Guzman y 12-10 Seybold 00:00: - 00 Externa l Chronic Chronic Disease Active [place] bilateral bilateral 12-10yb old low back low back 00:00: - pain pain 00 Externa without without l sciatica sciatica Anxiety Anxiety Disease Active [place] 12-10 Seybold 00:00: - 00 Externa l Allergies, Adverse [...] External Sex Assigned At [birth year] [place] mccauely 00:00:00 00:00:00 - External Smoking Status Start Date Stop Date Source Never smoked tobacco [place] Mullins old - External Medications Ordered Filled Start Stop Current Ordering Indication Dosage Frequency Signature Comments Components Source Medication Medication Date Date Medication? Clinician (SIG) Name Name Tizanidine 2022-05 Yes [id number] 4mg Q.25D Take 1 [place] HCl 4 MG 0-05 tablet (4 Seybol d oral Tablet 00:00: mg total) - 00 by mouth Externa every 6 l hours as needed for muscle spasms. Naproxen 2022-05 Yes [id number] 500mg Take 1 [place] 500 MG oral 0-05 [id number] tablet Seyb old Tablet 00:00: (500 mg - 00 total) by Externa mouth in l the morning and 1 tablet (500 mg total) in the evening. Take with meals. Topiramate Yes [id number] 25mg Take 1 [place] (Topamax) 9-06 tablet (25 Seyb old 25 MG oral 00:00: mg total) - Tablet 00 by mouth Externa daily. l Topiramate 0 Yes [id number] 25mg Take 1 [place] (Topamax) 9-06 tablet (25 Seyb old 25 MG oral 00:00: mg total) - Tablet 00 by mouth Externa daily. l Topiramate 2022-0 Yes [id number] 25mg Take 1 [place] (Topamax) 9-06 tablet (25 Seyb old 25 MG oral 00:00: mg total) - Tablet 00 by mouth Externa daily. l Lisinopril 2022-0 Yes [id number] 20mg Take 1 K elsey 20 MG oral 8-09 tablet (20 Sey bold Tablet 00:00: mg total) - 00 by mouth Externa daily l hydrOXYzine 2022-0 Yes [id number] 25mg Q.5D Take 1 [place] Pamoate 25 8-09 capsule Seybol d MG oral 00:00: (25 mg - Capsule 00 total) by Externa mouth 2 l times daily as needed for anxiety Escitalopra 2022-0 Yes [id number] 10mg Take 1 [place] m Oxalate 8-09 tablet (10 Seyb old 10 MG oral 00:00: mg total) - Tablet 00 by mouth Externa daily l Gabapentin 3-0 Yes [id number] 100mg Q.5D Take 1 [place] 100 MG oral 8-09 capsule Seybo ld Capsule 00:00: (100 mg - 00 total) by Externa mouth 2 l times daily as needed (pain) Lisinopril 2022-0 Yes [id number] 20mg Take 1 K elsey 20 MG oral 8-09 tablet (20 Sey bold Tablet 00:00: mg total) - 00 by mouth Externa daily l hydrOXYzine 3-0 Yes [id number] 25mg Q.5D Take 1 [place] Pamoate 25 8-09 capsule Seybol d MG oral 00:00: (25 mg - Capsule 00 total) by Externa mouth 2 l times daily as needed for anxiety Escitalopra 2022-0 Yes [id number] 10mg Take 1 [place] m Oxalate 8-09 tablet (10 Seyb old 10 MG oral 00:00: mg total) - Tablet 00 by mouth Externa daily l Gabapentin 3-0 Yes [id number] 100mg Q.5D Take 1 [place] 100 MG oral 8-09 capsule Seybo ld Capsule 00:00: (100 mg - 00 total) by Externa mouth 2 l times daily as needed (pain) Lisinopril 3-0 Yes [id number] 20mg Take 1 K elsey 20 MG oral 8-09 tablet (20 Sey bold Tablet 00:00: mg total) - 00 by mouth Externa daily l hydrOXYzine 2023-0 Yes [id number] 25mg Q.5D Take 1 [place] Pamoate 25 8-09 capsule Seybol d MG oral 00:00: (25 mg - Capsule 00 total) by Externa mouth 2 l times daily as needed for anxiety Escitalopra 2022-0 Yes [id number] 10mg Take 1 [place] m Oxalate 8-09 tablet (10 Seyb old 10 MG oral 00:00: mg total) - Tablet 00 by mouth Externa daily l Gabapentin 2023-0 Yes [id number] 100mg Q.5D Take 1 [place] 100 MG oral 8-09 capsule Seybo ld Capsule 00:00: (100 mg - 00 total) by Externa mouth 2 l times daily as needed (pain) Lisinopril 2022-0 Yes [id number] 20mg Take 1 K elsey 20 MG oral 8-09 tablet (20 Sey bold Tablet 00:00: mg total) - 00 by mouth Externa daily l hydrOXYzine 2022-0 Yes [id number] 25mg Q.5D Take 1 [place] Pamoate 25 8-09 capsule Seybol d MG oral 00:00: (25 mg - Capsule 00 total) by Externa mouth 2 l times daily as needed for anxiety Escitalopra 2022-0 Yes [id number] 10mg Take 1 [place] m Oxalate 8-09 tablet (10 Seyb old 10 MG oral 00:00: mg total) - Tablet 00 by mouth Externa daily l Gabapentin 2022-0 Yes [id number] 100mg Q.5D Take 1 [place] 100 MG [...] - Arterial blood by External Pulse oximetry Oxygen saturation in 2022-12-10 15:38:00 99 /min [place] Seybold - Arterial blood by External Pulse oximetry Systolic blood 2022-12-10 15:38:00 142 mm[Hg] [place] Seybold - pressure External Diastolic blood 2022-12-10 15:38:00 89 mm[Hg] Guzman y Seybold - pressure External Heart rate 2022-12-10 15:38:00 79 /min [place] Snell eybold - External Body temperature 2022-12-10 15:38:00 36.61 Pat Kait lilly Seybold - External Respiratory rate 2022-12-10 15:38:00 15 /min Kait lilly Seybold - External Body height 2022-12-10 15:38:00 152.4 cm [place] Snell eybold - External Body weight 2022-12-10 15:38:00 86.183 kg [place] Snell eybold - External BMI 2022-12-10 15:38:00 37.11 kg/m2 [place] Snell eybold - External Procedures This patient has no known procedures. Encounters Start End Encounter Admission Attending Care Care Encounter Source Date/Time Date/Time Type Type Clinicians Facility Department ID 2023-03-18 2023-03-18 Outpatient RICHMOND HANCOCK [id number] [place] 00:00:00 00:00:00 DIXON Seybol d 2023-02-18 2023-02-18 Outpatient RICHMOND HANCOCK [id number] [place] 00:00:00 00:00:00 DIXON Seybol d 2023-02-05 2023-02-05 Outpatient RICHMOND RIVER [id number] [place] 14:30:00 14:30:00 EDWINA Seybol d 2023-02-04 2023-02-04 Outpatient PREZAS, RICHMOND FRAGOSO [id number] [place] 16:00:00 16:00:00 DIXON Seybol d 2023-01-21 2023-01-21 Outpatient RICHMOND FRAGOSO [id number] [place] 11:15:00 11:15:00 Seybol d 2023-01-16 2023-01-16 Outpatient RICHMOND FRAGOSO [id number] [place] 00:00:00 00:00:00 Seybol d 2023-01-15 2023-01-15 Outpatient VALDES, RICHMOND FRAGOSO [id number] [place] 15:15:00 15:15:00 MARLEN Seybol d 2023-01-15 2023-01-15 Outpatient RICHMOND FRAGOSO [id number] [place] 15:00:00 15:00:00 Seybol d 2023-01-09 2023-01-09 Outpatient PREZAS, RICHMOND FRAGOSO [id number] [place] 00:00:00 00:00:00 DIXON Seybol d 2023-01-08 2023-01-08 Outpatient LAB90 RICHMOND FRAGOSO [id number] [place] 08:25:00 08:25:00 Seybol d 2023-01-08 2023-01-08 Outpatient RICHMOND FRAGOSO [id number] [place] 00:00:00 00:00:00 Seybol d 2023-01-08 2023-01-08 Outpatient PREZAS, RICHMOND FRAGOSO [id number] [place] 00:00:00 00:00:00 DIXON Seybol d 2023-01-08 2023-01-08 Outpatient PREZAS, RICHMOND FRAGOSO [id number] [place] 00:00:00 00:00:00 DIXON Seybol d 2023-01-08 2023-01-08 Outpatient PREZAS, RICHMOND FRAGOSO [id number] [place] 00:00:00 00:00:00 DIXON Seybol d 2023-01-07 2023-01-07 Outpatient PREZAS, RICHMOND FRAGOSO [id number] [place] 14:15:00 14:15:00 DIXON Seybol d 2022-12-16 2022-12-16 Outpatient PREZAS, RICHMOND FRAGOSO [id number] [place] 00:00:00 00:00:00 DIXON Seybol d 2022-12-10 2022-12-10 Outpatient ALVARORICHMOND CARMEN RICHMOND [id number] [place] 10:30:00 10:30:00 DIXON Seybol d 2022-10-31 2022-10-31 Outpatient [facility] [id number] [place] 15:40:11 15:40:11 0630 F [place] 2022-10-17 2022-10-17 Outpatient [facility] [id number] [place] 15:40:34 15:40:34 0616 [facility] Results Test Description Test Time Test Comments Results Result Comments Source TSH, THIRD GENERATION 2022-11-01 04:59:50 Test Item Value Reference Range Interpretation Comme nts TSH, THIRD GENERATION (test 2.840 UIU/ML 0.400-4.100 UNLESS OTHERWISE INDICATED, code = 2821) ALL TESTING PER FORMED AT [facility]ICAL [facility], [place] [id number] [employer]GER [employer]ATEGY: Alec DAVALOS [id number] [facility] [id number]
[2023-03-19 11:26] LABS: SARS-CoV-2 Antigen Rapid Res Negative (Negative)
[2023-03-19] MEDS ORDERED: ACETAMINOPHEN 500 MG TAB ONE (11:53)
[2023-03-19] MEDS ORDERED: dexAMETHasone 10 MG/ML VIAL ONE (11:57)
[2023-03-19] MEDS ORDERED: FAMOTIDINE 20 MG/2 ML VIAL IV ONE (12:10)
[2023-03-19] MEDS ORDERED: DIPHENHYDRAMINE 50 MG/ML VIAL ONE (12:10)
--- NOTE | 2023-03-19 12:58 | EDPHYS ---
Physician Documentation [facility] Name: Venessa Almazan Age: 42 yrs Sex: Female : 1980 Arrival Date: 03/19/2023 Time: 10:35 Bed 16 Private MD: ED Physician Bart Calvo HPI: 03/19 10:41 This 42 yrs old Female presents to ER via Ambulatory with complaints of Flu jh7 Symptoms. 10:41 Onset: The symptoms/episode began/occurred 2 day(s) ago. Associated signs and symptoms: jh7 Pertinent positives: chest pain, congestion, cough, fever, shortness of breath, body aches. Cough, reproducible chest pain, fever, congestion, and body aches since Thursday. The patient states that her entire family has flu B at home. She reports that her blood pressure is elevated due to forgetting to take her lisinopril this morning.. Historical: - Allergies: 10:41 terbutaline; ll1 - PMHx: 10:41 Depression; hypertension- no meds; ll1 - PSHx: 10:41 Appendectomy; Cholecystectomy; Ligation of fallopian tube; Right Ankle; ll1 - Immunization history:: Adult Immunizations up to date. - Social history:: Smoking status: Patient denies any tobacco usage or history of. ROS: 10:41 Eyes: Negative for injury, pain, redness, and discharge, Abdomen/GI: Negative for jh7 abdominal pain, nausea, vomiting, diarrhea, and constipation, Back: Negative for injury and pain, MS/Extremity: Negative for injury and deformity, Skin: Negative for injury, rash, and discoloration, Neuro: Negative for headache, weakness, numbness, tingling, and seizure, 10:41 Constitutional: Positive for body aches, chills, fever, 10:41 ENT: Positive for sinus congestion, 10:41 Cardiovascular: Positive for chest pain, with cough, Negative for palpitations, 10:41 Respiratory: Positive for cough, wheezing, Negative for orthopnea, 10:41 All other systems are negative, Exam: 10:41 Head/Face: Normocephalic, atraumatic. Eyes: Pupils equal round and reactive to light, jh7 extra-ocular motions intact. Lids and lashes normal. Conjunctiva and sclera are non-icteric and not injected. Cornea within normal limits. Periorbital areas with no swelling, redness, or edema. 10:41 Neck: Trachea midline, no thyromegaly or masses palpated, and no cervical lymphadenopathy. Supple, full range of motion without nuchal rigidity, or vertebral point tenderness. No Meningismus. Abdomen/GI: Soft, non-tender, with normal bowel sounds. No distension or tympany. No guarding or rebound. No evidence of tenderness throughout. Back: No spinal tenderness. No costovertebral tenderness. Full range of motion. Skin: Warm, dry with normal turgor. Normal color with no rashes, no lesions, and no evidence of cellulitis. MS/ Extremity: Pulses equal, no cyanosis. Neurovascular intact. Full, normal range of motion. Neuro: Awake and alert, GCS 15, oriented to person, place, time, and situation. Motor strength 5/5 in all extremities. Sensory grossly intact. Normal gait. 10:41 Constitutional: The patient appears alert, awake, obviously ill, 10:41 ENT: Posterior pharynx: erythema, is not appreciated, pooling of secretions, that are mild, 10:41 Respiratory: the patient does not display signs of respiratory distress, Respirations: normal, Breath sounds: are clear throughout, Persistent hacking cough, Vital Signs: 10:41 Resp 26; Weight 84.37 kg; Height 5 ft. 0 in. ; Pain 10/10; ll1 10:45 BP 182 / 117; Pulse 99; Resp 17; Temp 97.9; Pulse Ox 99% on R/A; rs5 12:07 BP 167 / 101; Pulse 90; Resp 17; Pulse Ox 99% on R/A; rs5 13:01 BP 140 / 91; Pulse 78; Resp 17; Pulse Ox 99% on R/A; rs5 10:41 Body Mass Index 36.33 (84.37 kg, 152.4 cm) ll1 10:41 Pain Scale: Adult ll1 MDM: 10:41 Patient medically screened. [facility] 13:20 Differential diagnosis: viral Infection, bacterial infection, URI, bronchitis, jh7 pneumonia. Data reviewed: vital signs, nurses notes, EKG, radiologic studies, plain films. I considered the following discharge prescriptions or medication management in the emergency department Medications were administered in the Emergency Department. See MAR. Historians other than the Patient: Spouse/Significant Other: . Counseling: I had a detailed discussion with the patient and/or guardian regarding the historical points, exam findings, and any diagnostic results supporting the discharge/admit diagnosis, to return to the emergency department if symptoms worsen or persist or if there are any questions or concerns that arise at home. Response to treatment: the patient's symptoms have markedly improved after treatment. ED course: BP decreased to 142/80. The patient states that she had forgotten to take her lisinopril this morning and will continue to take it as prescribed. Although the flu test showed negative, the patient agreed that this was likely due to a viral illness. Due to her clinical presentation, antibiotics were prescribed if symptoms worsen.. 13:20 Special discussion: I have referred the patient to see his PCP for further evaluation [facility] of high blood pressure. 03/19 10:45 Order name: Flu; Complete Time: 11:36 [facility] 03/19 10:45 Order name: SARS RAPID; Complete Time: 11:36 [facility] 03/19 10:45 Order name: XRAY Chest (1 view); Complete Time: 13:16 [facility] 03/19 10:45 Order name: EKG - Nurse/Tech; Complete Time: 11:00 [facility] 03/19 12:43 Order name: Recheck B/P [facility] EC:52 Rate is 96 beats/min. Rhythm is regular. QRS [place] is Normal. ND interval is normal at [facility] 136 msec. QRS interval is normal at 72 msec. QT interval is normal at 328 msec. No Q waves. T waves are Normal. No ST changes noted. Clinical impression: Normal ECG. Administered Medications: 10:50 Drug: Lisinopril PO 20 mg PO once Route: PO; rs5 12:02 Follow up: Response: No adverse reaction rs5 10:50 Drug: Ibuprofen PO 600 mg PO once Route: PO; rs5 12:02 Follow up: Response: No adverse reaction; Pain is decreased rs5 11:00 Drug: DuoNeb Nebulize (2.5 mg - 0.5 mg) 3 ml Nebulizer once Route: Nebulizer; rs5 11:00 Follow up: Response: No adverse reaction rs5 11:44 Drug: Acetaminophen PO 1000 mg PO once Route: PO; rs5 12:39 Follow up: Response: No adverse reaction; Pain is unchanged, physician notified rs5 11:44 Drug: Decadron - Dexamethasone IVP 10 mg IVP once Route: IVP; Site: left antecubital; rs5 12:39 Follow up: Response: No adverse reaction; Pain is decreased rs5 12:10 Drug: diphenhydrAMINE IVP 50 mg IVP once Route: IVP; Site: left antecubital; rs5 12:30 Follow up: Response: No adverse reaction rs5 12:10 Drug: Famotidine IVP 20 mg IVP once; dilute with 10 mL 0.9% NaCl; give over 2 minutes rs5 Route: IVP; Site: left antecubital; 12:30 Follow up: Response: No adverse reaction rs5 Disposition: 14:09 Co-signature as Attending Physician, Bart Calvo MD I reviewed the patient's care rt provided by the Advanced Practice Provider and agree with the diagnosis and treatment plan. Disposition Summary: 03/19/23 12:57 Discharge Ordered Notes: Location: Home [facility] Problem: new [facility] Symptoms: have improved [facility] Condition: Stable [facility] Diagnosis - Atypical pneumonia [facility] Followup: [facility] - With: Private Physician - When: 2 - 3 days - Reason: Recheck today's complaints Discharge Instructions: - Discharge Summary Sheet [facility] - Acute Bronchitis, Adult [facility] - Viral Illness, Adult [facility] Forms: - Medication Reconciliation Form [facility] - Thank You Letter [facility] - Antibiotic Education [facility] - Patient Portal Instructions [facility] - Leadership Thank You Letter [facility] - Work release form rs5 Prescriptions: - albuterol sulfate 90 mcg/actuation Inhalation HFA Aerosol Inhaler - inhale 1 puff INHALATION route every 4-6 hours As needed; 1 Each; Refills: 0, 7 Product Selection Permitted - azithromycin 250 mg Oral tablet - take 1 dose pack ORAL route as directed on dose pack for 5 days Take 2 tablets jh7 by mouth on day 1. Then, days 2 through 5 take 1 tablet by mouth daily.; 6 tablet; Refills: 0, Product Selection Permitted - Tessalon Perles 100 mg Oral Capsule - take 1 capsule ORAL route every 8 hours As needed; 15 capsule; Refills: 0, jh7 Product Selection Permitted Signatures: Dispatcher [employer] Dain Dupree RN RN 1 Dayanara Edwards, LAB AID LAB AID [facility] Bart Calvo MD MD rt Avery, Rigoberto, RN RN rs5 Corrections: (The following items were deleted from the chart) 13:27 10:41 Cough, reproducible chest pain, fever, congestion, and body aches since Thursday. jh7 The patient states that her entire family has flu B at home.. jh7
--- NOTE | 2023-03-19 12:58 | ER ---
Nurse's Notes [facility] Name: Venessa Almazan Age: 42 yrs Sex: Female : 1980 Arrival Date: 03/19/2023 Time: 10:35 Bed 16 Private MD: Diagnosis: Atypical pneumonia Presentation: 03/19 10:41 Chief complaint: Patient states: Cough, SOB, fever, CP, fatigue since Thursday. ll1 Coronavirus screen: Vaccine status: Patient reports being unvaccinated. Client denies travel out of the [place] in the last 14 days. congestion, cough unrelated to allergies, difficulty breathing, fatigue, fever, headache, shortness of breath, Client presents with at least one sign or symptom that may indicate coronavirus-19. Standard/surgical mask placed on the client. Ebola Screen: Patient denies travel to an Ebola-affected area in the 21 days before illness onset. Initial Sepsis Screen: Does the patient meet any 2 criteria? No. Patient's initial sepsis screen is negative. Does the patient have a suspected source of infection? Yes: Productive cough/pneumonia. Risk Assessment: Do you want to hurt yourself or someone else? Patient reports no desire to harm self or others. Onset of symptoms was March 17, 2023. 10:41 Method Of Arrival: Ambulatory ll1 10:41 Acuity: ADAN 3 ll1 Historical: - Allergies: 10:41 terbutaline; ll1 - PMHx: 10:41 Depression; hypertension- no meds; ll1 - PSHx: 10:41 Appendectomy; Cholecystectomy; Ligation of fallopian tube; Right Ankle; ll1 - Immunization history:: Adult Immunizations up to date. - Social history:: Smoking status: Patient denies any tobacco usage or history of. Screenin:45 [facility] ED Fall Risk Assessment (Adult) History of falling in the last 3 months, rs5 including since admission No falls in past 3 months (0 pts) Confusion or Disorientation No (0 pts) Intoxicated or Sedated No (0 pts) Impaired Gait No (0 pts) Mobility Assist Device Used No (0 pt) Altered Elimination No (0 pt) Score/Fall Risk Level 0 - 2 = Low Risk Oriented to surroundings, Maintained a safe environment. Abuse screen: Denies threats or abuse. Nutritional screening: No deficits noted. Tuberculosis screening: No symptoms or risk factors identified. Assessment: 10:45 General: Appears in no apparent distress. uncomfortable, Behavior is cooperative. Pain: rs5 Complains of pain in chest Pain does not radiate. Pain currently is 7 out of 10 on a pain scale. Quality of pain is described as aching, Pain began 1 day ago. Is continuous. Neuro: Level of Consciousness is awake, alert, obeys commands, Oriented to person, place, time, situation. Cardiovascular: Heart tones S1 S2 present Rhythm is regular. Respiratory: Airway is patent Respiratory effort is even, unlabored, Respiratory pattern is regular, symmetrical, Breath sounds are clear bilaterally. GI: Abdomen is round non-distended, Bowel sounds present X 4 quads. Abd is soft and non tender X 4 quads. : No signs and/or symptoms were reported regarding the genitourinary system. EENT: No signs and/or symptoms were reported regarding the EENT system. Derm: Skin is intact, Skin is pink, warm \\T\\ dry. Musculoskeletal: Range of motion: intact in all extremities, Pt reports body aches and generalized weakness. 10:45 Respiratory: Reports cough that is productive, since 4 days ago. EENT: Reports "I feel rs5 a bit congested". 12:02 Pain: Complains of pain in chest Pain does not radiate. Pain currently is 7 out of 10 rs5 on a pain scale. Quality of pain is described as aching, Is continuous. Respiratory: Respiratory effort is even, unlabored, Respiratory pattern is regular, symmetrical. 12:02 Cardiovascular: Rhythm is regular. rs5 12:10 Reassessment: Pt reports numbness and tingling in hands bilat. provider notified. rs5 12:10 Cardiovascular: Rhythm is regular. Respiratory: Airway is patent Respiratory effort is rs5 even, unlabored, Respiratory pattern is regular, symmetrical. 12:11 Reassessment: To bedside for med adm. rs5 12:40 Reassessment: Patient denies pain at this time. Patient states feeling better. Patient rs5 states symptoms have improved. Pt denies tingling or numbness to hands bilat. 12:40 Neuro: Speed Belt Sander are equal bilaterally Moves all extremities. Gait is steady, Speech is rs5 normal, Facial symmetry appears normal, Intact. 13:20 Reassessment: Patient and/or family updated on plan of care and expected duration. Pain rs5 level reassessed. Patient is alert, oriented x 3, equal unlabored respirations, skin warm/dry/pink. Vital Signs: 10:41 Resp 26; Weight 84.37 kg; Height 5 ft. 0 in. ; Pain 10/10; ll1 10:45 BP 182 / 117; Pulse 99; Resp 17; Temp 97.9; Pulse Ox 99% on R/A; rs5 12:07 BP 167 / 101; Pulse 90; Resp 17; Pulse Ox 99% on R/A; rs5 13:01 BP 140 / 91; Pulse 78; Resp 17; Pulse Ox 99% on R/A; rs5 10:41 Body Mass Index 36.33 (84.37 kg, 152.4 cm) ll1 10:41 Pain Scale: Adult ll1 ED Course: 10:40 Patient arrived in ED. im 10:40 Dayanara Edwards FNP is PHCP. jh7 10:40 Bart Calvo MD is Attending Physician. jh7 10:40 Arm band placed on Patient placed in an exam room, on a stretcher. ll1 10:40 Patient has correct armband on for positive identification. Bed in low position. Call rs5 light in reach. Side rails up X2. 10:42 Triage completed. ll1 10:48 Rigoberto Avery, RN is Primary Nurse. rs5 12:50 XRAY Chest (1 view) In Process Unspecified. EDMS 13:20 No provider procedures requiring assistance completed. IV discontinued, intact, rs5 bleeding controlled, No redness/swelling at site. Pressure dressing applied. Administered Medications: 10:50 Drug: Lisinopril PO 20 mg PO once Route: PO; rs5 12:02 Follow up: Response: No adverse reaction rs5 10:50 Drug: Ibuprofen PO 600 mg PO once Route: PO; rs5 12:02 Follow up: Response: No adverse reaction; Pain is decreased rs5 11:00 Drug: DuoNeb Nebulize (2.5 mg - 0.5 mg) 3 ml Nebulizer once Route: Nebulizer; rs5 11:00 Follow up: Response: No adverse reaction rs5 11:44 Drug: Acetaminophen PO 1000 mg PO once Route: PO; rs5 12:39 Follow up: Response: No adverse reaction; Pain is unchanged, physician notified rs5 11:44 Drug: Decadron - Dexamethasone IVP 10 mg IVP once Route: IVP; Site: left antecubital; rs5 12:39 Follow up: Response: No adverse reaction; Pain is decreased rs5 12:10 Drug: diphenhydrAMINE IVP 50 mg IVP once Route: IVP; Site: left antecubital; rs5 12:30 Follow up: Response: No adverse reaction rs5 12:10 Drug: Famotidine IVP 20 mg IVP once; dilute with 10 mL 0.9% NaCl; give over 2 minutes rs5 Route: IVP; Site: left antecubital; 12:30 Follow up: Response: No adverse reaction rs5 Medication: 13:00 VIS not applicable for this client. rs5 Outcome: 12:57 Discharge ordered by . Camilo 13:25 Discharged to home ambulatory, via ambulance, with family, rs5 13:25 Condition: stable 13:25 Discharge instructions given to patient, family, Instructed on discharge instructions, follow up and referral plans. Demonstrated understanding of instructions, follow-up care, medications, Prescriptions given X 3, 13:29 Patient left the ED. rs5 Signatures: Dispatcher [employer] EDMS Dain Monique RN RN 1 Dayanara Edwards FNP BLOCK SPLITTER OPERATOR 7 Rigoberto Avery RN RN rs5 Doreen Cary Corrections: (The following items were deleted from the chart) 19:32 12:40 Reassessment: Patient denies pain at this time. Patient states feeling better. rs5 Patient states symptoms have improved. rs5 19:34 11:40 Reassessment: Patient denies pain at this time. Patient states feeling better. rs5 Patient states symptoms have improved. rs5 19:35 11:30 Reassessment: Pt states "My pain is unchanged, the medications you gave me did rs5 not help at all" provider notified. rs5 19:37 11:30 Reassessment: provider notified pt is experiencing pain. rs5 rs5 19:38 12:00 Reassessment: Pt reports numbness and tingling in hands bilat. provider notified. rs5 rs5 19:38 12:10 Reassessment: provider notified pt is experiencing pain. rs5 rs5 19:38 12:10 Pain: Complains of pain in chest Pain does not radiate. Pain currently is 7 out rs5 of 10 on a pain scale. Quality of pain is described as aching, Is continuous, rs5 19:38 12:10 Respiratory: Respiratory effort is even, unlabored, Respiratory pattern is rs5 regular, symmetrical, rs5 19:38 12:10 Cardiovascular: Rhythm is regular rs5 rs5 19:39 19:39 Reassessment: To bedside for med adm. rs5 rs5 19:40 12:40 Reassessment: Patient denies pain at this time. Patient states feeling better. rs5 Patient states symptoms have improved. rs5 19:41 10:45 BP 182 / 117; Pulse 99bpm; Resp 17bpm; Pulse Ox 99% RA; rs5 rs5
--- NOTE | 2023-03-19 13:14 | RAD REPORT ---
EXAM DESCRIPTION: RADChest Single View03/19/2023 12:49 pm CLINICAL HISTORY: COUGH COMPARISON: Chest Single View dated 10/09/2022; Chest Single View dated 01/11/2022; Chest Single View d ated 12/30/2020; Chest Single View dated 10/12/2019 TECHNIQUE: Portable AP view of the chest. FINDINGS: The lungs are clear. No pneumothorax or effusion. The cardiomediastinal contours are unrem arkable. IMPRESSION: No acute cardiopulmonary process.
[2023-03-19 13:34] VITALS: BP 182/117; O2SAT 99
--- NOTE | 2023-03-25 17:12 | EKG ---
Test Date: 2023-03-19 Test Time: 10:52:27 Box Attacher: SADIE MEASUREMENT RESULTS: Intervals: Rate: 96 CT: 136 QRSD: 72 QT: 328 QTc: 414 Lockhart: P: 32 CT: 136 QRS: 15 T: 24 INTERPRETIVE STATEMENTS: Normal sinus rhythm Normal ECG Compared to ECG 10/09/2022 16:01:11 No significant changes Electronically Signed On 03-25-23 16:57:00 ASSEMBLER TRIM by Mateusz Woods
== END 2023-03-19 13:29 | disposition home or self-care (01) ==
LOC: ER 10:35
DX: J18.9 Pneumonia, unspecified organism (principal); Z11.52 Encounter for screening for COVID-19; Z88.8 Allergy status to other drugs, medicaments and biological substances
CPT/HCPCS: 93005; 36415; 87804 ×2; 71045; 94640; 96375; 96374; 99284; 87811; J1200; J1100

== ENCOUNTER 2024-08-29 10:19 | Emergency (ER) | payer SELFPAY ==
--- OUTSIDE RECORDS SUMMARY | 2024-08-29 10:22 | XMS REPORT | Continuity of Care Document ---
Author Name Unknown Address [address] [facility] [address] [place] [address] Organization [facility] [place] Address [address] [facility] [address] [place] [address] Care Team Providers Care Cardio Clinician Name Role Phone DIXON HANCOCK Attending Clinician Unavailable KACEY BENTLEY Attending Clinician Unavailable TERRENCE ALCANTAR Attending Clinician Unavailable TONY BENTLEY Attending Clinician Unavailable EDWINA RIVER Attending Clinician UnavailMARLEN Mcqueen Attending Clinician Unavailable [id number] Attending Clinician Unavailable Payers Payer Name Policy Type Policy Number Effective Date Expirati on Date Source [facility] SAMANTHA RIGGINS [employer] FOCUS 9 [id number] 2024 00:00:00 [employer] [facility] [place] 9 [id number] 2022 00:00:00 Problems Condition Name Condition Details Condition Category Status Onset Date Resolution Date Last Treatment Date Treating Clinician Comments Source HTN (hypertens ion) HTN (hypertens ion) Disease Active 12-10 00:00: 00 Griselda Cabral Externa mikey Migraine Migraine Disease Active 12-10 00:00: 00 Griselda Cabral Externa mikey Chronic bilateral low back pain without sciatica Chronic bilateral low back pain without sciatica Disease Active 12-10 00:00: 00 Griselda Prietoa mikey Anxiety Anxiety Disease Active 12-10 00:00: 00 Griselda Cabral Externa mikey Social History Social Habit Start Date Stop Date Quantity Comments Source ASSERTION Not Griselda Seybold - External Gender identity Kait Rodriguez - External Sexual orientation Chris Rodriguez - External Alcoholic beverage intake 2024-01-11 00:00:00 2024-01-11 00:00:00 Ex-drinker (finding) Griselda Rodriguez - External Alcohol intake 2023-02-05 00:00:00 2023-02-05 00:00:00 Ex-drinker (finding) Griselda Bhandarikellymelida - External History of Social function 2023-01-15 00:00:00 2023-01-15 00:00:00 Griselda Bhandarikellymelida - External Tobacco use and exposure 2022-12-10 00:00:00 2022-12-10 00:00:00 Smokeless tobacco non-user Griselda Bhandarikellymelida - External Sex 2022-12-09 12:25:31 2022-12-09 12:25:31 Female (finding) Griselda Bhandarikellymelida - External Sex [birth year] at 1980 00:00:00 1980 00:00:00 Griselda Bhandarikellymelida - External Smoking Status Start Date Stop Date Source Never smoked tobacco Griselda Sekellymelida - External Medications Ordered Medication Name Filled Medication Name Start Date Stop Date Current Medication? Ordering Clinician Indication Dosage Frequency Signature (SIG) Comments Components Source Nitrofurant oin Monohyd Macro 100 MG oral Capsule 2023-05 00:00: 00 03-28 05:59 :00 No [id number] 100mg Q.5D Take 1 capsule (100 mg total) by mouth 2 times daily for 5 days Take 1 tablet by mouth twice daily for 5 days.. Griselda jensen Escitalopra m Oxalate (Lexapro) 20 MG oral Tablet 01-10 15:19: 25 Yes 20mg QD Take 1 tablet (20 mg total) by mouth daily. Griselda jensen Lisinopril 20 MG oral Tablet 01-10 00:00: 00 Yes [id number] 20mg QD Take 1 tablet (20 mg total) by mouth daily. Griselda jensen Meloxicam 15 MG oral Tablet 01-10 00:00: 00 Yes [id number] 15mg QD Take 1 tablet (15 mg total) by mouth daily. Griselda jensen Tizanidine HCl 4 MG oral Tablet 2022-05 0-05 00:00: 00 Yes [id number] 4mg Q.25D Take 1 tablet (4 mg total) by mouth every 6 hours as needed for muscle spasms. Griselda jensen Naproxen 500 MG oral Tablet 2022-05 0-05 00:00: 00 Yes [id number] 500mg Take 1 tablet (500 mg total) by mouth in the morning and 1 tablet (500 mg total) in the evening. Take with meals. Griselda jensen Topiramate (Topamax) 25 MG oral Tablet 9-06 00:00: 00 Yes [id number] 25mg QD Take 1 tablet (25 mg total) by mouth daily. Griselda jensen hydrOXYzine Pamoate 25 MG oral Capsule 12-10 00:00: 00 Yes [id number] 25mg Q.5D Take 1 capsule (25 mg total) by mouth 2 times daily as needed for anxiety Griselda jensen Escitalopra m Oxalate 10 MG oral Tablet 12-10 00:00: 00 Yes [id number] 10mg QD Take 1 tablet (10 mg total) by mouth daily Griselda jensen Gabapentin 100 MG oral Capsule 12-10 00:00: 00 Yes [id number] 100mg Q.5D Take 1 capsule (100 mg total) by mouth 2 times daily as needed (pain) Griselda jensen Lisinopril 20 MG oral Tablet 12-10 00:00: 00 01-10 00:00 :00 No [id number] 20mg QD Take 1 tablet (20 mg total) by mouth daily Griselda jensen Lisinopril 10 MG oral Tablet 7-13 00:00: 00 12-10 00:00 :00 No 10mg Take 1 tablet (10 mg total) by mouth daily Griselda jensen Escitalopra m Oxalate 5 MG oral Tablet 6-30 00:00: 00 12-10 00:00 :00 No 5mg Take 1 tablet (5 mg total) by mouth daily Griselda jensen Amitriptyli ne HCl 10 MG oral Tablet 10-20 00:00: 00 Yes Griselda jensen hydrOXYzine Pamoate 25 MG oral Capsule 10-17 00:00: 00 12-10 00:00 :00 No TAKE 1 CAPSULE BY MOUTH EVERY 8 HOURS NEEDED FOR ANXIETY Griselda jensen Vital Signs Vital Name Observation Time Observation Value Comments S ource Body height 2024-02-04 14:05:00 152.4 cm Kait ey Seybold - External Body weight 2024-02-04 14:05:00 85.276 kg Kait ey Seybold - External BMI 2024-02-04 14:05:00 36.72 kg/m2 Kait ey Seybold - External Respiratory rate 2023-02-05 19:14:00 14 /min Griselda Seybold - External Body height 2023-02-05 19:14:00 152.4 cm Kait ey Seybold - External Body weight 2023-02-05 19:14:00 87.998 kg Kait ey Seybold - External BMI 2023-02-05 19:14:00 37.89 kg/m2 Kait ey Seybold - External Systolic blood pressure 2023-02-05 19:14:00 130 mm[Hg] Griselda Mullinso ld - External Diastolic blood pressure 2023-02-05 19:14:00 78 mm[Hg] Griselda Mullinso ld - External Heart rate 2023-02-05 19:14:00 95 /min Kelse y Seybold - External Body temperature 2023-02-05 19:14:00 36.67 Pat Griselda Seybold - External Systolic blood pressure 2023-01-15 19:21:00 120 mm[Hg] Griselda Seybo ld - External Diastolic blood pressure 2023-01-15 19:21:00 82 mm[Hg] Griselda Bhandariybo ld - External Heart rate 2023-01-15 19:21:00 64 /min Kelse y Seybold - External Body height 2023-01-15 19:21:00 152.4 cm Kait ey Seybold - External Body weight 2023-01-15 19:21:00 87.091 kg Kait ey Seybold - External BMI 2023-01-15 19:21:00 37.50 kg/m2 Kait ey Seybold - External Body temperature 2023-01-07 18:57:00 36.61 Pat Griselda Seybold - External Respiratory rate 2023-01-07 18:57:00 20 /min Griselda Seybold - External Body height 2023-01-07 18:57:00 152.4 cm Kait ey Seybold - External Body weight 2023-01-07 18:57:00 84.369 kg Kait ey Seybold - External BMI 2023-01-07 18:57:00 36.33 kg/m2 Kait ey Seybold - External Oxygen saturation in Arterial blood by Pulse oximetry 2023-01-07 18:57:00 99 /min Griselda Seybo ld - External Systolic blood pressure 2023-01-07 18:57:00 123 mm[Hg] Griselda Seybo ld - External Diastolic blood pressure 2023-01-07 18:57:00 80 mm[Hg] Griselda Seybo ld - External Heart rate 2023-01-07 18:57:00 86 /min Kelse y Seybold - External Systolic blood pressure 2022-12-10 15:38:00 142 mm[Hg] Griselda Seybo ld - External Diastolic blood pressure 2022-12-10 15:38:00 89 mm[Hg] Griselda Seybo ld - External Heart rate 2022-12-10 15:38:00 79 /min Kelse y Seybold - External Body temperature 2022-12-10 15:38:00 36.61 Pat Griselda Seybold - External Respiratory rate 2022-12-10 15:38:00 15 /min Griselda Seybold - External Body height 2022-12-10 15:38:00 152.4 cm Kait ey Seybold - External Body weight 2022-12-10 15:38:00 86.183 kg Kait ey Seybold - External BMI 2022-12-10 15:38:00 37.11 kg/m2 Kait ey Seybold - External Oxygen saturation in Arterial blood by Pulse oximetry 2022-12-10 15:38:00 99 /min Griselda Fry ld - External Procedures Procedure Date / Time Performed Performing Clinicia n Source SHOULDER 3 VIEW LEFT (ORTHO) 2024-02-04 14:48:20 Terrence Alcantar - External Encounters Start Date/Time End Date/Time Encounter Type Admission Type Attending [facility] Care Department Encounter ID Source 2024-07-20 00:00:00 2024-07-20 00:00:00 Outpatient DIXON HANCOCK [id number] [facility] 2024-03-22 17:00:00 2024-03-22 17:00:00 [facility]ENT[facility] [id number] [facility]-05 00:00:00 2024-02-05 00:00:00 Outpatient DIXON HANCOCK [id number] [facility] 2024-02-04 09:40:00 2024-02-04 09:40:00 Outpatient GRISELDA FRAGOSO [id number] [facility] 2024-02-04 09:00:00 2024-02-04 09:00:00 Outpatient TERRENCE ALCANTAR [id number] [facility] 2024-01-28 00:00:00 2024-01-28 00:00:00 Outpatient [facility] ALCANTAR [id number] [facility] 2024-01-20 00:00:00 2024-01-20 00:00:00 Outpatient DIXON HANCOCK [id number] [facility] 2024-01-11 15:15:00 2024-01-11 15:15:00 Outpatient TONY BENTLEY [id number] [facility] 2023-04-15 00:00:00 2023-04-15 00:00:00 Outpatient [facility]IXON HANCOCK [id number] [facility] 2023-04-07 00:00:00 2023-04-07 00:00:00 Outpatient EDWINA RIVER [id number] [facility] 2023-03-18 00:00:00 2023-03-18 00:00:00 Outpatient PREZADIXON Snell GRISELDA [id number] [facility] 2023-02-18 00:00:00 2023-02-18 00:00:00 Outpatient PREZADIXON Snell GRISELDA [id number] [facility] 2023-02-05 14:30:00 2023-02-05 14:30:00 Outpatient EDWINA RIVER GRISELDA GRISELDA [id number] [facility] 2023-02-04 16:00:00 2023-02-04 16:00:00 Outpatient PREZADIXON Snell GRISELDA GRIS[facility]DA [id number] [facility] 2023-01-21 11:15:00 2023-01-21 11:15:00 Outpatient GRISELDA FRAGOSO [id number] [facility] 2023-01-16 00:00:00 2023-01-16 00:00:00 Outpatient GRISELDA FRAGOSO [id number] [facility] 2023-01-15 15:15:00 2023-01-15 15:15:00 Outpatient MARLEN VALDES GRISELDA FRAGOSO [id number] [facility] 2023-01-15 15:00:00 2023-01-15 15:00:00 Outpatient GRISELDA FRAGOSO [id number] [facility] 2023-01-09 00:00:00 2023-01-09 00:00:00 Outpatient PREZADIXON Snell [facility] [id number] [facility] 2023-01-08 08:25:00 2023-01-08 08:25:00 Outpatient LAB90 GR[facility]DA FRAGOSO [id number] [facility] 2023-01-08 00:00:00 2023-01-08 00:00:00 Outpatient GRISELDA FRAGOSO [id number] [facility] 2023-01-08 00:00:00 2023-01-08 00:00:00 Outpatient PREZADIXON Snell GRISELDA FRAGOSO [id number] Griselda Seybold 2023-01-08 00:00:00 2023-01-08 00:00:00 Outpatient PREZADIXON Snell GRISELDA FRAGOSO [id number] [facility] 2023-[facility]-08 00:00:00 2023-01-08 00:00:00 Outpatient DIXON HANCOCK [id number] [facility] Rodriguez 2023-01-07 14:15:00 2023-01-07 14:15:00 Outpatient DIXON HANCOCK [id number] [facility] 2022-12-16 00:00:00 2022-12-16 00:00:00 Outpatient DIXON HANCOCK [id number] [facility] 2022-12-10 10:30:00 2022-12-10 10:30:00 Outpatient DIXON HANCOCK [id number] [facility] Bhand[facility] 2022-10-31 15:40:11 2022-10-31 15:40:11 Outpatient [facility] [id number] Terrence Sanchez 2022-10-17 15:40:34 2022-10-17 15:40:34 Outpatient [facility] [id number] Terrence Sanchez Results Test Description Test Time Test Comments Results Resul t Comments Source SHOULDER 3 VIEW (ORTHO) LEFT 3 14:50:35 Exam: SHOULDER 3 VIEW (ORTHO) LEFT History: 43 years old, Female with CHRONIC PAIN; TRAUMA 3 YRS AGO Comparison: None. Views: ?4 FINDINGS: There is no fracture or dislocation. The acromioclavicular joint is within normal limits. ?Glenohumeral articulation is preserved. ? There is no soft tissue abnormality. [facility] - External Notes Date/Time Note Provider Source 2024-02-04 12:06:41 Pt given results in office. [facility] 2024-01-11 15:19:31 Chief Complaint Patient presents with REFILLS-NURSE/MD BP medication refill Deborah Hutton MA I [facility]
[2024-08-29] MEDS ORDERED: GABAPENTIN 100 MG CAP ONE (10:28)
[2024-08-29] MEDS ORDERED: KETOROLAC 30 MG/ML INJ ONE (10:28)
[2024-08-29] MEDS ORDERED: HYDROCODONE/APAP 5/325 MG TAB ONE (10:28)
--- NOTE | 2024-08-29 11:09 | RAD REPORT ---
EXAMINATION: CT LUMBAR SPINE WITHOUT CONTRAST CLINICAL INDICATION: Female, 43 years old. radiation to left leg;Pain TECHNIQUE: Axial CT images were obtained through the lumbar spine in soft tissue and bone windows wit hout intravenous contrast. Coronal and Sagittal reformatted images were created from the data set. One or more of the following dose reduction techniques were used: Automated exposure control, adjustm ent of the mA and/ or kV according to patient size, and/or iterative reconstruction. Unless otherwise specified, incidental findings do not require dedicated imaging follow-up. COMPARISON: No prior exam. FINDINGS: For purposes of this dictation, it is assumed that there are 5 non rib-bearing lumbar type vertebrae, and the most caudal fully segmented lumbar vertebra is labeled L5. ALIGNMENT: The lumbar spine demonstrates normal alignment without scoliosis or spondylolisthesis. BONES: No significant soft tissue abnormalities. No aggressive osseous lesions. DISCS: Intervertebral disc space heights are maintained. LEVELS: There is evidence of a left paracentral extruded disc at L4-5 resulting left lateral recess a nd exit foraminal stenosis as well as mild central canal stenosis. SOFT TISSUE: No soft tissue abnormalities. Suspected right renal cyst. IMPRESSION: Suspected extruded left paracentral disc at L4-5 resulting left lateral recess stenosis and probable left exit foraminal stenosis. Nonemergent MRI follow-up suggested.
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
--- NOTE | 2024-08-29 11:26 | ER ---
Nurse's Notes [facility] Name: Venessa Almazan Age: 43 yrs Sex: Female : 1980 Arrival Date: 08/29/2024 Time: 10:19 Bed IW2 Private MD: Diagnosis: Intervertebral disc disorders with radiculopathy, lumbar region Presentation: 08/29 10:27 Chief complaint: Patient states: Back pain - denies injury. Pain for 2-3 days. ld1 Coronavirus screen: At this time, the client does not indicate any symptoms associated with coronavirus-19. Ebola Screen: No symptoms or risks identified at this time. Initial Sepsis Screen: Does the patient meet any 2 criteria? No. Patient's initial sepsis screen is negative. Does the patient have a suspected source of infection? No. Patient's initial sepsis screen is negative. Risk Assessment: Do you want to hurt yourself or someone else? Patient reports no desire to harm self or others. Onset of symptoms was August 29, 2024 at 10:28. 10:27 Method Of Arrival: Wheelchair ld1 10:27 Acuity: ADAN 4 ld1 Triage Assessment: 10:27 General: Appears in no apparent distress. uncomfortable, Behavior is calm, cooperative, ld1 appropriate for age. Pain: Complains of pain in lumbar area, low back area, left low back and left mid back Pain radiates to left leg Pain currently is 10 out of 10 on a pain scale. Quality of pain is described as sharp, shooting, Pain began 2-3 days ago. Is continuous. EENT: No signs and/or symptoms were reported regarding the EENT system. Neuro: Level of Consciousness is awake, alert, obeys commands, Oriented to person, place, time, situation. Cardiovascular: Capillary refill < 3 seconds Patient's skin is warm and dry. Respiratory: Airway is patent Respiratory effort is even, unlabored. GI: Abdomen is round non-distended. : No signs and/or symptoms were reported regarding the genitourinary system. Derm: No signs and/or symptoms reported regarding the dermatologic system. Musculoskeletal: Range of motion: intact in all extremities. Historical: - Allergies: 10:26 terbutaline; ld1 - PMHx: 10:26 Depression; hypertension- no meds; ld1 - PSHx: 10:26 Appendectomy; Cholecystectomy; Ligation of fallopian tube; Right Ankle; ld1 Cholecystectomy; Appendectomy; - Immunization history:: Adult Immunizations up to date. - Infectious Disease History:: Denies. - Social history:: Smoking status: Patient denies any tobacco usage or history of. - Family history:: not pertinent. - Hospitalizations: : No recent hospitalization is reported. Screenin:31 [place] ED Fall Risk Assessment (Adult) History of falling in the last 3 months, ld1 including since admission No falls in past 3 months (0 pts) Confusion or Disorientation No (0 pts) Intoxicated or Sedated No (0 pts) Impaired Gait No (0 pts) Mobility Assist Device Used No (0 pt) Altered Elimination No (0 pt) Score/Fall Risk Level 0 - 2 = Low Risk Oriented to surroundings, Hourly rounding (assess needs \T\ fall precautionary measures) done. Abuse screen: Denies threats or abuse. Denies injuries from another. Nutritional screening: No deficits noted. Tuberculosis screening: No symptoms or risk factors identified. Assessment: 11:31 Reassessment: Patient appears in no apparent distress at this time. See triage ld1 assessment. Neuro: Level of Consciousness is awake, alert, obeys commands, Oriented to person, place, time, situation. Vital Signs: 10:27 BP 156 / 92; Pulse 87; Resp 18; Temp 97.1(TE); Pulse Ox 98% on R/A; Weight 84.82 kg; ld1 Height 5 ft. 0 in. ; Pain 10/10; 11:31 BP 149 / 88; Pulse 81; Resp 18; Pulse Ox 98% on R/A; Pain 8/10; ld1 10:27 Body Mass Index 36.52 (84.82 kg, 152.4 cm) ld1 10:27 Pain Scale: Adult ld1 11:31 Pain Scale: Adult ld1 ED Course: 10:20 Patient arrived in ED. al6 10:20 Elder Yates MD is Attending Physician. rn 10:20 Joanna Bernardo FNP-C is PHCP. kb 10:27 Arm band placed on right wrist. ld1 10:28 Triage completed. ld1 10:50 CT Lumbar Spine Wo Con In Process Unspecified. EDMS 11:31 Julia Coto, RN is Primary Nurse. ld1 11:31 Patient has correct armband on for positive identification. ld1 11:31 No provider procedures requiring assistance completed. Patient did not have IV access ld1 during this emergency room visit. Administered Medications: 10:37 Drug: Gabapentin PO 300 mg PO once Route: PO; ld1 10:37 Drug: Ketorolac IM 15 mg IM once Route: IM; Site: right deltoid; ld1 10:37 Drug: HYDROcodone-acetaminophen PO 5 mg-325 mg 1 tabs PO once Route: PO; ld1 Medication: 11:31 VIS not applicable for this client. ld1 Outcome: : Discharge ordered by . rn 11:31 Discharged to home ambulatory, with family, ld1 11:31 Condition: stable 11:31 Discharge instructions given to patient, family, Instructed on discharge instructions, follow up and referral plans. medication usage, Demonstrated understanding of instructions, follow-up care, medications, Prescriptions given X 3, 11:32 Patient left the ED. ld1 Signatures: Dispatcher [employer] EDMS Joanna Bernardo, FIELD EDUCATION COORDINATOR-C FIELD EDUCATION COORDINATOR-Ckb Elder Yates MD MD rn Sims, Lauren, RN RN ld1 Anila Worthington6
[2024-08-30 13:46] VITALS: TEMP 97.1; O2SAT 98
[2024-08-30 13:47] VITALS: BP 149/88
== END 2024-08-29 11:32 | disposition home or self-care (01) ==
LOC: ER 10:19
DX: M51.86 Other intervertebral disc disorders, lumbar region (principal)
CPT/HCPCS: 72131; 96372; 99284

== ENCOUNTER 2025-01-30 10:25 | Emergency (ER) | payer OTHER ==
--- OUTSIDE RECORDS SUMMARY | 2025-01-30 10:29 | XMS REPORT | Continuity of Care Document ---
Author Name Unknown Address [address] [place] [address] 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 Name Role Phone DIXON HANCOCK Attending Clinician Unavailable KACEY BENTLEY Attending Clinician Unavailable TERRENCE ALCANTAR Attending Clinician Unavailable TONY BENTLEY Attending Clinician Unavailable EDWINA RIVER Attending Clinician UnavailMARLEN Mcqueen Attending Clinician Unavailable [id number] Attending Clinician Unavailable Payers Payer Name Policy Type Policy Number Effective Date Expirati on Date Source [facility] SAMANTHA RIGGINS [employer] 9 [id number] 2024 00:00:00 [employer] [facility] ON 9 [id number] 2022 00:00:00 Problems Condition Name Condition Details [...] 2023-05 00:00: 00 03-28 05:59 :00 No [id number] 100mg Q.5D Take 1 capsule (100 mg total) by mouth 2 times daily for 5 days Take 1 tablet by mouth twice daily for 5 days.. Griselda jensen Escitalopra m Oxalate (Lexapro) 20 MG oral Tablet 01-10 15:19: 25 Yes 20mg QD Take 1 tablet (20 mg total) by mouth daily. Griselda jensen Lisinopril 20 MG oral Tablet 01-10 00:00: 00 Yes [id number] 20mg QD Take 1 tablet (20 mg total) by mouth daily. Griselda jensen Meloxicam 15 MG oral Tablet 01-10 00:00: 00 Yes [id number] 15mg QD Take 1 tablet (15 mg total) by mouth daily. Griselda jensen Tizanidine HCl 4 MG oral Tablet 2022-05 0-05 00:00: 00 Yes [id number] 4mg Q.25D Take 1 tablet (4 mg total) by mouth every 6 hours as needed for muscle spasms. Griselda jensen Naproxen 500 MG oral Tablet 2022-05 0-05 00:00: 00 Yes [id number] 500mg Take 1 tablet (500 mg total) by mouth in the morning and 1 tablet (500 mg total) in the evening. Take with meals. Griselda jensen Topiramate (Topamax) 25 MG oral Tablet 9-06 00:00: 00 Yes [id number] 25mg QD Take 1 tablet (25 mg total) by mouth daily. Griselda ejnsen hydrOXYzine Pamoate 25 MG oral Capsule 12-10 00:00: 00 Yes [id number] 25mg Q.5D Take 1 capsule (25 mg total) by mouth 2 times daily as needed for anxiety Griselda jensen Escitalopra m Oxalate 10 MG oral Tablet 12-10 00:00: 00 Yes [id number] 10mg QD Take 1 tablet (10 mg total) by mouth daily Griselda jensen Gabapentin 100 MG oral Capsule 12-10 00:00: 00 Yes [id number] 100mg Q.5D Take 1 capsule (100 mg total) by mouth 2 times daily as needed (pain) Griselda jensen Lisinopril 20 MG oral Tablet 12-10 00:00: 00 01-10 00:00 :00 No [id number] 20mg QD Take 1 tablet (20 mg [...] End Date/Time Encounter Type Admission Type Attending [facility] Care Department Encounter ID Source 2024-07-20 00:00:00 2024-07-20 00:00:00 Outpatient DIXON HANCOCK [id number] [facility] 2024-03-22 17:00:00 2024-03-22 17:00:00 Outpatient KACEY BENTLEY [id number] [facility] 2024-02-05 00:00:00 2024-02-05 00:00:00 Outpatient DIXON HANCOCK [id number] [facility] 2024-02-04 09:40:00 2024-02-04 09:40:00 Outpatient GRISELDA FRAGOSO [id number] [facility] 2024-02-04 09:00:00 2024-02-04 09:00:00 Outpatient TERRENCE ALCANTAR [id number] [facility] 2024-01-28 00:00:00 2024-01-28 00:00:00 Outpatient TERRENCE ALCANTAR [id number] [facility] 2024-01-20 00:00:00 2024-01-20 00:00:00 Outpatient DIXON HANCOCK [id number] [facility] 2024-01-11 15:15:00 2024-01-11 15:15:00 Outpatient TONY BETNLEY [id number] [facility] 2023-04-15 00:00:00 2023-04-15 00:00:00 Outpatient DIXON HANCOCK [id number] [facility] 2023-04-07 00:00:00 2023-04-07 00:00:00 Outpatient EDWINA RIVER [id number] [facility] 2023-03-18 00:00:00 2023-03-18 00:00:00 Outpatient PREZADIXON Snell GRISELDA [id number] [facility] 2023-02-18 00:00:00 2023-02-18 00:00:00 Outpatient PREZADIXON Snell GRISELDA [id number] [facility] 2023-02-05 14:30:00 2023-02-05 14:30:00 Outpatient EDWINA RIVER GRISELDA GRISELDA [id number] [facility] 2023-02-04 16:00:00 2023-02-04 16:00:00 Outpatient PREZADIXON Snell GRISELDA GRISELDA [id number] [facility] 2023-01-21 11:15:00 2023-01-21 11:15:00 Outpatient GRISELDA FRAGOSO [id number] [facility] 2023-01-16 00:00:00 2023-01-16 00:00:00 Outpatient GRISELDA FRAGOSO [id number] [facility] 2023-01-15 15:15:00 2023-01-15 15:15:00 Outpatient MARLEN VALDES GRISELDA FRAGOSO [id number] [facility] 2023-01-15 15:00:00 2023-01-15 15:00:00 Outpatient GRISELDA FRAGOSO [id number] [facility] 2023-01-09 00:00:00 2023-01-09 00:00:00 Outpatient PREZADIXON Snell GRISELDA [id number] [facility] 2023-01-08 08:25:00 2023-01-08 08:25:00 Outpatient LAB90 GRISELDA FRAGOSO [id number] [facility] 2023-01-08 00:00:00 2023-01-08 00:00:00 Outpatient GRISELDA FRAGOSO [id number] [facility] 2023-01-08 00:00:00 2023-01-08 00:00:00 Outpatient PREZADIXON Snell GRISELDA FRAGOSO [id number] Griselda Seybold 2023-01-08 00:00:00 2023-01-08 00:00:00 Outpatient PREZADIXON Snell GRISELDA FRAGOSO [id number] [facility] 2023-01-08 00:00:00 2023-01-08 00:00:00 Outpatient DIXON HANCOCK [id number] Gr[facility]da Rodriguez 2023-01-07 14:15:00 2023-01-07 14:15:00 Outpatient DIXON HANCOCK [id number] [facility] 2022-12-16 00:00:00 2022-12-16 00:00:00 Outpatient DIXON HANCOCK [id number] [facility] 2022-12-10 10:30:00 2022-12-10 10:30:00 Outpatient DIXON HANCOCK [id number] [facility] 2022-10-31 15:40:11 2022-10-31 15:40:11 Outpatient [facility] [id number] Terrence Sanchez 2022-10-17 15:40:34 2022-10-17 15:40:34 Outpatient [facility] [id number] Terrence Sanchez Results Test Description Test [...] ? There is no soft tissue abnormality. [facility] - External Notes Date/Time Note Provider Source 2024-02-04 12:06:41 Pt given results in office. [facility] 2024-01-11 15:19:31 Chief Complaint Patient presents with REFILLS-NURSE/MD BP medication refill Deborah Hutton MA I [facility]
[2025-01-30] MEDS ORDERED: NA CHLORIDE 0.9% 1,000 ML ONE (11:37)
[2025-01-30 11:56] LABS: Absolute Lymphocytes (CBC) 2.0 K/uL (0.7-4.9); Hematocrit 37.9 % (36.0-45.0); Hemoglobin 12.6 g/dL (12.0-15.0); MCH 29.5 pg (27.0-35.0); MCHC 33.3 g/dL (32.0-36.0); MCV 88.6 fL (80-100); MPV 8.7 fL (7.6-11.3); Nucleated RBC Absolute Count 0.0 (0-0); Nucleated Red Blood Cells % 0.0 % (0-0); RBC Red Blood Cell Count 4.27 M/uL (3.86-4.86); White Blood Count 6.90 thou/uL (4.3-10.9)
[2025-01-30 11:58] LABS: Urine Microscopic Reflex YN NO UMIC
[2025-01-30 12:19] LABS: ALT/SGPT 29.0 U/L (13-56); AST/SGOT 18.0 U/L (15-37); Albumin 3.8 g/dL (3.4-5.0); Albumin/Globulin Ratio 1.0 (1.1-1.8); Alkaline Phosphatase 121.0 U/L (45-117); Anion Gap 8.7 mEq/L (5.0-15.0); BUN Blood Urea Nitrogen 20.0 mg/dL (7-18); Globulin 3.9 g/dL (2.3-3.5); Glucose Level 101.0 mg/dL (74-106); Lipase 49.0 U/L (13-75); Potassium 3.7 mEq/L (3.5-5.1)
--- NOTE | 2025-01-30 12:29 | RAD REPORT ---
EXAMINATION: Abdomen Pelvis W Contrast CLINICAL INDICATION: Female, 44 years old.ABD PAIN TECHNIQUE: CT abdomen and pelvis was performed, after the administration of IV contrast, [facility]. Axial, sagittal and coronal reconstructions were obtained. One or more of the following dose reduction techniques were used: Automated exposure control, adjustment of the mA and/o r kV according to patient size, and/or iterative reconstruction. Unless otherwise specified, incidental findings do not require dedicated imaging follow-up. [id number]. COMPARISON: No prior exams FINDINGS: LOWER CHEST: No acute process identified.No significant pericardial effusion. Mild circumferential th ickening of the distal esophagus which could reflect esophagitis. UPPER GI: No significant abnormality. LIVER: No significant focal abnormality. GALLBLADDER/BILE DUCTS: No biliary ductal dilatation.? PANCREAS: No mass, ductal dilation, or sweta-pancreatic fluid. SPLEEN: Unremarkable. ADRENALS: No adrenal masses. KIDNEYS AND URETERS: No hydronephrosis.Low density and/or too small to characterize renal lesions whi ch are statistically benign.No renal calculi.No ureteral calculi. ABDOMINAL AORTA AND OTHER VESSELS: Normal caliber aorta and IVC. PERITONEUM: No abnormal free fluid. No free air. LYMPH NODES: No pathologic lymphadenopathy. ABDOMINAL WALL: Small fat containing umbilical hernia. SMALL BOWEL/COLON: Small bowel has normal course and caliber. No colonic wall thickening or pericolon ic inflammatory changes.Appendix absent. URINARY BLADDER: Nonspecific circumferential bladder wall thickening. REPRODUCTIVE ORGANS: No pathologic process. MUSCULOSKELETAL: No acute or suspicious osseous abnormality. ADDITIONAL FINDINGS: None. IMPRESSION: No acute findings within the abdomen or pelvis. No urinary tract calculi. Cholecystectomy and appendectomy.
[2025-01-30] MEDS ORDERED: ONDANSETRON 4 MG/2 ML VIAL ONE (12:33)
[2025-01-30] MEDS ORDERED: MORPHINE 4 MG/ML SYR ONE (12:33)
--- NOTE | 2025-01-30 12:34 | EDPHYS ---
Physician Documentation [facility] Name: Venessa Almazan Age: 44 yrs Sex: Female : 1980 Arrival Date: 01/30/2025 Time: 10:25 Bed 15 Private MD: ED Physician Lv Shultz HPI: 01/30 12:05 This 44 yrs old Female presents to ER via Ambulatory with complaints of sp3 Abdominal Pain. 12:05 44-year-old female with history of hypertension, depression, status post sp3 cholecystectomy, appendectomy and BTL presents to the ED with epigastric abdominal pain started yesterday and is progressively getting worse. She states she has been having the symptoms off and on for the last 6 months. She has spoken to her doctor who told her it was reflux. She has not had any imaging or endoscopy as reported. She denies any other symptoms including vomiting, diarrhea, fever, headache, neck pain, chest pain, shortness of breath, syncope, near syncope, rash, bleeding, or any other signs or symptoms on ROS at this time.. 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 - Infectious Disease History:: Denies. - Social history:: Smoking status: Patient denies any tobacco usage or history of. ROS: 12:07 Constitutional: Negative for fever, chills, and weight loss, Eyes: Negative for injury, sp3 pain, redness, and discharge, Neck: Negative for injury, pain, and swelling, Cardiovascular: Negative for chest pain, palpitations, and edema, Respiratory: Negative for shortness of breath, cough, wheezing, and pleuritic chest pain, Back: Negative for injury and pain, : Negative for injury, bleeding, discharge, and swelling, MS/Extremity: Negative for injury and deformity, Skin: Negative for injury, rash, and discoloration, Neuro: Negative for headache, weakness, numbness, tingling, and seizure, Psych: Negative for depression, anxiety, suicide ideation, homicidal ideation, and hallucinations, Allergy/Immunology: Negative for hives, rash, and allergies, Endocrine: Negative for neck swelling, polydipsia, polyuria, polyphagia, and marked weight changes, Hematologic/Lymphatic: Negative for swollen nodes, abnormal bleeding, and unusual bruising, 12:07 All other systems are negative, Exam: 12:07 Constitutional: This is a well developed, well nourished patient who is awake, alert, sp3 and in no acute distress. Head/Face: Normocephalic, atraumatic. Eyes: Pupils equal round and reactive to light, extra-ocular motions intact. Lids and lashes normal. Conjunctiva and sclera are non-icteric and not injected. Cornea within normal limits. Periorbital areas with no swelling, redness, or edema. Neck: Trachea midline, no thyromegaly or masses palpated, and no cervical lymphadenopathy. Supple, full range of motion without nuchal rigidity, or vertebral point tenderness. No Meningismus. Chest/axilla: Normal chest wall appearance and motion. Nontender with no deformity. No lesions are appreciated. Cardiovascular: Regular rate and rhythm with a normal S1 and S2. No gallops, murmurs, or rubs. Normal PMI, no JVD. No pulse deficits. Respiratory: Lungs have equal breath sounds bilaterally, clear to auscultation and percussion. No rales, rhonchi or wheezes noted. No increased work of breathing, no retractions or nasal flaring. Back: No spinal tenderness. No costovertebral tenderness. Full range of motion. Skin: Warm, dry with normal turgor. Normal color with no rashes, no lesions, and no evidence of cellulitis. MS/ Extremity: Pulses equal, no cyanosis. Neurovascular intact. Full, normal range of motion. Neuro: Awake and alert, GCS 15, oriented to person, place, time, and situation. Cranial nerves II-XII grossly intact. Motor strength 5/5 in all extremities. Sensory grossly intact. Cerebellar exam normal. Normal gait. Psych: Awake, alert, with orientation to person, place and time. Behavior, mood, and affect are within normal limits. 12:07 Abdomen/GI: Epigastric pain to palpation without peritoneal signs, rebound or guarding., Vital Signs: 10:45 BP 147 / 104; Pulse 80; Resp 16; Temp 98.4; Pulse Ox 100% on R/A; Weight 81.65 kg; Pain dd2 10/10; 11:18 BP 126 / 97; Pulse 73; Resp 20; Pulse Ox 96% on R/A; ar8 12:30 BP 142 / 87; Pulse 65; Resp 19; Pulse Ox 99% ; Pain 10/10; ar8 13:00 BP 136 / 89; Pulse 63; Resp 16; Pulse Ox 99% on R/A; Pain 5/10; ar8 13:08 Pain 5/10; ar8 10:45 Pain Scale: Adult dd2 12:30 Pain Scale: Adult ar8 13:00 Pain Scale: Adult ar8 13:08 Pain Scale: Adult ar8 MDM: 10:44 Medical Screening Exam initiated sp3 12:09 Data reviewed: vital signs, nurses notes, lab test result(s), radiologic studies. ED sp3 course: 44-year-old female with epigastric abdominal pain. Differential diagnosis includes gastritis, peptic ulcer disease, pancreatitis, colitis, other intra-abdominal pathology. I am not highly suspicious of vascular pathology including aorta, ACS, pathology, SUPERVISOR FISHING pathology or any other critical process. Given her scar tissue could also be adhesions causing pain. Workup will include CT scan of the abdomen pelvis with IV contrast, general labs and supportive care along with a UA. IV fluids and pain and nausea control as needed. Disposition pending workup and patient course.. 12:32 ED course: Full workup negative. We will discharge patient have her follow-up with Dr. rodney Shah who is on-call for GI for outpatient endoscopy.. 01/30 11:34 Order name: CBC with Diff; Complete Time: 12:32 sp3 01/30 11:34 Order name: CMP; Complete Time: 12:32 sp3 01/30 11:34 Order name: Lipase; Complete Time: 12:32 sp3 01/30 11:34 Order name: Test, Urine; Complete Time: 12:32 sp3 01/30 11:34 Order name: UA Rfx Artemio Cult if indicated; Complete Time: 12:32 sp3 01/30 11:34 Order name: CT Abd/Pelvis - IV Contrast Only; Complete Time: 12:32 3 01/30 11:34 Order name: IV Saline Lock; Complete Time: 11:44 sp3 01/30 11:34 Order name: Labs collected and sent; Complete Time: 11:44 sp3 Administered Medications: 11:47 Drug: NS 0.9% IV 1000 ml IV at 1 bolus Per protocol; to be given as a bolus over 60 ar8 minutes Route: IV; Rate: 1 bolus; Site: right forearm; 13:08 Follow up: Response: No adverse reaction; IV Status: Completed infusion; IV Intake: ar8 1000ml 12:43 Drug: Ondansetron IVP 4 mg IVP once; over 2 minutes Route: IVP; Site: right forearm; ar8 13:08 Follow up: Response: No adverse reaction ar8 12:46 Drug: morphine IVP or IV 4 mg IVP once over 4 mins Route: IVP; Infused Over: 4 mins; ar8 Site: right forearm; 13:08 Follow up: Pain 5/10 Adult; Response: No adverse reaction; Pain is decreased ar8 Disposition Summary: 01/30/25 12:34 Discharge Ordered Notes: Location: Home sp3 Condition: Stable sp3 Diagnosis - Abdominal pain sp3 Followup: sp3 - With: Private Physician - When: Upon discharge from the Emergency Department - Reason: Continuance of care Followup: sp3 - With: Devon Ford MD - When: Upon discharge from the Emergency Department - Reason: Continuance of care Discharge Instructions: - Discharge Summary Sheet sp3 - Abdominal Pain, Adult sp3 Forms: - Medication Reconciliation Form sp3 - Antibiotic Education sp3 - Prescription Opioid Use sp3 - Patient Portal Instructions sp3 - Leadership Thank You Letter sp3 Prescriptions: - Tramadol 50 mg Oral Tablet - take 1 tablet ORAL route every 8 hours as needed; 12 tablet; Refills: 0, sp3 Product Selection Permitted Signatures: Dispatcher [employer] EDLv Cisneros MD MD sp3 ALLYSON KILPATRICK RN RN dd2 Julius Babcock RN RN ar8 Corrections: (The following items were deleted from the chart) 10:49 10:48 PMHx: hypertension- no meds; dd2 dd2 10:49 10:48 PSHx: Cholecystectomy; dd2 dd2 10:49 10:48 PSHx: Appendectomy; dd2 dd2 11:34 11:34 CBC+H.LAB.BRZ ordered. EDMS EDMS 11:34 11:34 COMPREHENSIVE METABOLIC PANEL+C.LAB.BRZ ordered. EDMS EDMS 11:34 11:34 LIPASE+C.LAB.BRZ ordered. EDMS EDMS 34 11:34 Test, Urine+UC.LAB.BRZ ordered. EDMS EDMS 11:34 UA Rfx Artemio Cult if indicated+U.LAB.BRZ ordered. EDMS EDMS :34 11:34 Abdomen Pelvis W Con+CT.RAD.BRZ ordered. EDMS EDMS
--- NOTE | 2025-01-30 12:34 | ER ---
Nurse's Notes [facility] Name: Venessa Almazan Age: 44 yrs Sex: Female : 1980 Arrival Date: 01/30/2025 Time: 10:25 Bed 15 Private MD: Diagnosis: Abdominal pain Presentation: 01/30 10:45 Chief complaint: Patient states: LT UPPER STOMACH PAIN THAT RADIATES TO LT MIDDLE BACK dd2 AND RT UPPER STOMACH OFF/ON FOR 6 MONTHS. PAIN BEGAN CLOTH WINDER AND IS WORSE WITH MOVEMENT. PT REPORTS NAUSEA. DENIES VOMITING, CONSTIPATION OR DIARRHEA. Coronavirus screen: At this time, the client does not indicate any symptoms associated with coronavirus-19. Ebola Screen: No symptoms or risks identified at this time. Initial Sepsis Screen: Does the patient meet any 2 criteria? No. Patient's initial sepsis screen is negative. Does the patient have a suspected source of infection? No. Patient's initial sepsis screen is negative. Risk Assessment: Do you want to hurt yourself or someone else? Patient reports no desire to harm self or others. Onset of symptoms was January 30, 2025. 10:45 Method Of Arrival: Ambulatory dd2 10:45 Acuity: ADAN 3 dd2 Triage Assessment: 10:48 General: Appears uncomfortable, Behavior is calm, cooperative, appropriate for age. dd2 Pain: Complains of pain in left upper quadrant Pain radiates to left mid back and right upper quadrant Pain currently is 10 out of 10 on a pain scale. GI: Reports upper abdominal pain, nausea. 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 - Infectious Disease History:: Denies. - Social history:: Smoking status: Patient denies any tobacco usage or history of. Screenin:30 [facility] ED Fall Risk Assessment (Adult) History of falling in the last 3 months, ar8 including since admission No falls in past 3 months (0 pts) Confusion or Disorientation No (0 pts) Intoxicated or Sedated No (0 pts) Impaired Gait No (0 pts) Mobility Assist Device Used No (0 pt) Altered Elimination No (0 pt) Score/Fall Risk Level 0 - 2 = Low Risk Oriented to surroundings, Maintained a safe environment. Abuse screen: Denies threats or abuse. Nutritional screening: No deficits noted. Tuberculosis screening: No symptoms or risk factors identified. Assessment: 11:27 General: Appears uncomfortable, Behavior is cooperative. Pain: Complains of pain in ar8 epigastric area, umbilical area and anterior aspect of left lateral abdomen. Neuro: Level of Consciousness is awake, alert, obeys commands, Oriented to person, place, time, situation, Soda Fountain Operator are equal bilaterally Moves all extremities. Full function Gait is steady, Speech is normal, Facial symmetry appears normal. Cardiovascular: Patient's skin is warm and dry. Respiratory: Airway is patent Respiratory effort is even, unlabored, Respiratory pattern is regular, symmetrical. GI: Abdomen is flat, Bowel sounds present X 4 quads. Abdomen is tender to palpation in epigastric area and umbilical area Reports upper abdominal pain, epigastric pain. : No signs and/or symptoms were reported regarding the genitourinary system. EENT: No signs and/or symptoms were reported regarding the EENT system. Derm: No signs and/or symptoms reported regarding the dermatologic system. Musculoskeletal: No signs and/or symptoms reported regarding the musculoskeletal system. Vital Signs: 10:45 BP 147 / 104; Pulse 80; Resp 16; Temp 98.4; Pulse Ox 100% on R/A; Weight 81.65 kg; Pain dd2 10/10; 11:18 BP 126 / 97; Pulse 73; Resp 20; Pulse Ox 96% on R/A; ar8 12:30 BP 142 / 87; Pulse 65; Resp 19; Pulse Ox 99% ; Pain 10/10; ar8 13:00 BP 136 / 89; Pulse 63; Resp 16; Pulse Ox 99% on R/A; Pain 5/10; ar8 13:08 Pain 5/10; ar8 10:45 Pain Scale: Adult dd2 12:30 Pain Scale: Adult ar8 13:00 Pain Scale: Adult ar8 13:08 Pain Scale: Adult ar8 ED Course: 10:27 Patient arrived in ED. im 10:31 Lv Shultz MD is Attending Physician. sp3 10:48 Triage completed. dd2 10:48 Arm band placed on right wrist. dd2 11:08 Julius Babcock, RN is Primary Nurse. ar8 11:30 Bed in low position. Call light in reach. Side rails up X2. Provided Education on: plan ar8 of care. Pulse ox on. NIBP on. 11:30 No provider procedures requiring assistance completed. ar8 11:40 Urine collected: clean catch specimen. ar8 11:40 Inserted saline lock: 22 gauge in right forearm, using aseptic technique. Blood ar8 collected. Flushed with 10 mL NS. 12:11 CT Abd/Pelvis - IV Contrast Only In Process Unspecified. EDMS 12:34 Devon Ford MD is Referral Physician. sp3 13:13 IV discontinued, intact, bleeding controlled, No redness/swelling at site. Pressure ar8 dressing applied. Administered Medications: 11:47 Drug: NS 0.9% IV 1000 ml IV at 1 bolus Per protocol; to be given as a bolus over 60 ar8 minutes Route: IV; Rate: 1 bolus; Site: right forearm; 13:08 Follow up: Response: No adverse reaction; IV Status: Completed infusion; IV Intake: ar8 1000ml 12:43 Drug: Ondansetron IVP 4 mg IVP once; over 2 minutes Route: IVP; Site: right forearm; ar8 13:08 Follow up: Response: No adverse reaction ar8 12:46 Drug: morphine IVP or IV 4 mg IVP once over 4 mins Route: IVP; Infused Over: 4 mins; ar8 Site: right forearm; 13:08 Follow up: Pain 5/10 Adult; Response: No adverse reaction; Pain is decreased ar8 Medication: 11:30 VIS not applicable for this client. ar8 Intake: 13:08 IV: 1000ml; Total: 1000ml. ar8 Outcome: 12:34 Discharge ordered by . sp3 13:13 Discharged to home ambulatory, ar8 13:13 Condition: stable 13:13 Discharge instructions given to patient, Instructed on discharge instructions, follow up and referral plans. medication usage, Demonstrated understanding of instructions, follow-up care, medications, Prescriptions given X 1, 13:13 Patient left the ED. ar8 Signatures: Dispatcher [employer] EDTX Lv Shultz MD MD sp3 Doreen Cary DIANA, RN RN dd2 Julius Babcock, RN RN ar8 Corrections: (The following items were deleted from the chart) 10: 10:48 PMHx: hypertension- no meds; dd2 dd2 10:48 PSHx: Cholecystectomy; dd2 dd2 10:48 PSHx: Appendectomy; dd2 dd2
[2025-01-30 13:29] VITALS: TEMP 98.4
[2025-01-30 13:33] VITALS: O2SAT 99
[2025-01-30 13:35] VITALS: BP 136/89
== END 2025-01-30 13:13 | disposition home or self-care (01) ==
LOC: ER 10:25
DX: R10.13 Epigastric pain (principal)
CPT/HCPCS: 96361; 85025; 36415; 81025; 81003; 83690; 80053; 74177; 96375; 96374; 99284; Q9967; J2405; J7030